=== PATIENT | female | born 1950 | race African-American/Black ===

== ENCOUNTER → 2017-02-26 | Outpatient (CLI) | payer MEDICARE ==
[2015-11-10 20:18] VITALS: BP 139/87
[~2017-02-26] MED LIST: AZIT250T PO
--- NOTE | 2017-02-26 15:59 | CARD ---
APPROVED REPORT EXAM: Two-dimensional and M-mode echocardiogram with Doppler and color Doppler. Other Information Quality : Good INDICATION Murmur 2D DIMENSIONS Left Atrium(2D)3.3 (1.6-4.0cm)IVSd1.2 (0.7-1.1cm) Aortic Root(2D)3.2 (2.0-3.7cm)LVDd4.7 (3.9-5.9cm) LVOT Diameter2.0 (1.8-2.4cm)PWd1.1 (0.7-1.1cm) LVDs3.0 (2.5-4.0cm)FS (%) 36.1 % SV67.6 mlLVEF(%)65.7 (>50%) Aortic Valve AoV Peak Pablo.159.1cm/sAoV VTI32.5cm AO Peak GR.10.1mmHgLVOT Peak Pablo.124.5cm/s AO Mean GR.5mmHgAVA (VMAX)2.34cm2 ANTHONY (VTI)2.50cm2 Mitral Valve MV E Dekaizqn49.1cm/sMV DECEL BECU566tt MV A Bbvtzdqw340.6cm/sE/A Ratio0.9 Tricuspid Valve TR P. Kzznzkrw156ws/sRAP YVFCDLZX6uzAb TR Peak Gr.09lmCdCYZP25bkMe Pulmonary Vein S1 Qouyufcj20.3cm/sD2 Gedzxdlq91.0cm/s LEFT VENTRICLE The left ventricle is normal size. There is mild concentric left ventricular hypertrophy. Left ventri brandi systolic function is normal. The Ejection Fraction is 55-60%. There is normal LV segmental wall m otion. Transmitral Doppler flow pattern is Grade II-pseudonormal filling dynamics. RIGHT VENTRICLE The right ventricle is mildly dilated. The right ventricular systolic function is normal. ATRIA The left atrium size is normal. The right atrium size is normal. The interatrial septum is intact wit h no evidence for an atrial septal defect or patent foramen ovale as noted on 2-D or Doppler imaging. AORTIC VALVE The aortic valve is calcified but opens well. Doppler and Color Flow revealed trace aortic regurgitat ion. There is no significant aortic valvular stenosis. MITRAL VALVE The mitral valve leaflets are thickened and calcified. There is no mitral valve stenosis. Doppler and Color-flow revealed trace to mild mitral regurgitation. TRICUSPID VALVE The tricuspid valve is normal in structure and function. Doppler and Color Flow revealed mild tricusp id regurgitation. There is no pulmonary hypertension. The PA pressure was estimated at 22 mmHg. There is no tricuspid valve stenosis. PULMONIC VALVE Doppler and Color Flow revealed trace pulmonic valvular regurgitation. There is no pulmonic valvular stenosis. GREAT VESSELS The aortic root is normal in size. The ascending aorta is normal in size. The IVC is normal in size a nd collapses >50% with inspiration. PERICARDIAL EFFUSION There is no pleural effusion. There is no evidence of significant pericardial effusion. Critical Notification Critical Value: No <Conclusion> Left ventricle systolic function is normal. The Ejection Fraction is 55-60%. There is normal LV segmental wall motion.
== END | disposition home or self-care (01) ==
LOC: ECHO 07:52
PROVIDERS: ATTEND Internal Medicine Cardiovascular Disease
DX: I51.7 Cardiomegaly (principal); R01.1 Cardiac murmur, unspecified
CPT/HCPCS: 93306

== ENCOUNTER → 2017-03-19 | Outpatient (CLI) | payer MEDICARE ==
[2015-11-10 20:18] VITALS: BP 139/87
--- NOTE | 2017-03-19 10:15 | RAD ---
DATE: 03/19/2017 EXAM: DIGITAL SCREEN BILAT W/CAD Bilateral Digital 2D Screening Mammogram HISTORY: Screening Mammogram COMPARISON: Screening mammogram 11/12/2015, 10/29/2014, 09/18/2013 This study was interpreted with the benefit of Computerized Aided Detection (CAD). The breast parenchyma is primarily fatty replaced. Breast parenchyma level density A. FINDINGS: Bilateral digital 2-D CC and MLO views. No suspicious mass, calcification or architectural distortion. No significant change from prior examination IMPRESSION: No mammographic evidence of malignancy. Recommend routine screening mammogram in 12 months. BI-RADS CATEGORY: 1 NEGATIVE RECOMMENDED FOLLOW-UP: 12M 12 MONTH FOLLOW-UP PQRS compliance statement: Patient information was entered into a reminder system with a target due date March 2018 for the next mammogram. Mammography is a sensitive method for finding small breast cancers, but it does not detect them all and is not a substitute for careful clinical examination. A negative mammogram does not negate a clinically suspicious finding and should not result in delay in biopsying a clinically suspicious abnormality. "Our facility is accredited by the [employer] Mammography [employer]."
== END | disposition home or self-care (01) ==
LOC: MAMMO 08:36
PROVIDERS: ATTEND Family Medicine
DX: Z12.31 Encounter for screening mammogram for malignant neoplasm of breast (principal)
CPT/HCPCS: G0202; 77067

== ENCOUNTER → 2018-03-22 | Outpatient (CLI) | payer MEDICARE, OTHER ==
[2015-11-10 20:18] VITALS: BP 139/87
--- NOTE | 2018-03-22 15:19 | RAD ---
DATE: 03/22/2018 EXAM: DIGITAL SCREEN BILAT W/CAD HISTORY: Annual screening COMPARISON: 10/29/2014, 09/18/2013, 11/12/2015, and 03/19/2017 mammographic exams This study was interpreted with the benefit of Computerized Aided Detection (CAD). Breast Density: FATTY The breast parenchyma is primarily fatty replaced. Breast parenchyma level density A. FINDINGS: Very minimal benign calcification is present. No suspicious calcification cluster, mass, or distortion. IMPRESSION: Benign. BI-RADS CATEGORY: 2 BENIGN FINDING(S) RECOMMENDED FOLLOW-UP: 12M 12 MONTH FOLLOW-UP PQRS compliance statement: Patient information was entered into a reminder system with a target due date in one year for the next mammogram. Mammography is a sensitive method for finding small breast cancers, but it does not detect them all and is not a substitute for careful clinical examination. A negative mammogram does not negate a clinically suspicious finding and should not result in delay in biopsying a clinically suspicious abnormality. "Our facility is accredited by the [employer] Mammography [employer]."
== END | disposition home or self-care (01) ==
LOC: MAMMO 09:06
PROVIDERS: ATTEND Family Medicine
DX: Z12.31 Encounter for screening mammogram for malignant neoplasm of breast (principal)
CPT/HCPCS: 77067

== ENCOUNTER 2018-09-13 12:21 | Inpatient (IN) | payer MEDICARE, OTHER ==
[~2018-09-13] VITALS: Ht 157.5 cm; Wt 93.0 kg
--- NOTE | 2018-09-13 13:56 | PHYS DOC ---
Past Medical History Past Medical History: Heart Disease, Hypertension Additional Past Medical Histor: cataract, legally blind since (JEFF CORNELL APRN) Past Surgical History: Hysterectomy, Other Additional Past Surgical Histo: cataract surgery (JEFF CORNELL APRN) Alcohol Use: None Drug Use: None (JEFF CORNELL APRN) Adult General Chief Complaint Chief Complaint: NAUSEA/VOMITING/DIARRHA HPI HPI Patient is a 67 year old female who presents with nausea and vomiting since last night. She is also having associated symptom of epigastric pain. Has had this pain once before and was seen at for it. Was told it was heartburn. Not take her medication today due to the nausea and vomiting. Tried Tums at home and Imodium with minimal relief. Rates her pain in the epigastric region as 9 out of 10 the character of the pain is throbbing. (JEFF CORNELL APRN) Review of Systems Review of Systems Constitutional: Denies fever or chills [] Eyes: Denies change in visual acuity, redness, or eye pain [] HENT: Denies nasal congestion or sore throat [] Respiratory: Denies cough or shortness of breath [] Cardiovascular: Reports epigastric chest pain and denies syncope. GI: Reports abdominal pain, nausea, and vomiting. Denies bloody stools or diarrhea [] : Denies dysuria or hematuria [] Musculoskeletal: Denies back pain or joint pain [] Integument: Denies rash or skin lesions [] Neurologic: Denies headache, focal weakness or sensory changes [] Endocrine: Denies polyuria or polydipsia [] Complete systems were reviewed and found to be within normal limits, except as documented in this note. (JEFF CORNELL APRN) Current Medications Current Medications Current Medications Medications (Trade) Dose Ordered Sig/Antoine Start Time Stop Time Status Last Admin Dose Admin Multi-Ingredient Mouthwash/Gargle (Gi Cocktail) 20 ml 1X ONCE 09/13/18 14:00 09/13/18 14:01 DC 09/13/18 14:26 20 ML Ondansetron HCl (Zofran) 4 mg 1X ONCE 09/13/18 14:00 09/13/18 14:01 DC 09/13/18 14:24 4 MG Sodium Chloride 500 ml @ 500 mls/hr 1X ONCE 09/13/18 14:00 09/13/18 14:59 DC 09/13/18 14:23 500 MLS/HR (IFTIKHAR GORE MD) Allergies Allergies Allergies Coded Allergies Type Severity Reaction Last Updated Verified No Known Drug Allergies 11/10/15 No (IFTIKHAR GORE MD) Physical Exam Physical Exam Constitutional: Well developed, well nourished, no acute distress, non-toxic appearance. [] HENT: Normocephalic, atraumatic, bilateral external ears normal, oropharynx moist, no oral exudates, nose normal. [] Eyes: PERRLA, EOMI, conjunctiva normal, no discharge. [] Neck: Normal range of motion, no tenderness, supple, no stridor. [] Cardiovascular:Heart rate regular rhythm, no murmur [] Lungs & Thorax: Bilateral breath sounds clear to auscultation [] Abdomen: Bowel sounds hyporeactive, soft, diffuse tenderness in the upper abdominal region localized to the epigstric area., no masses, no pulsatile masses. [] Skin: Warm, dry, no erythema, no rash. [] Back: No tenderness, no CVA tenderness. [] Extremities: No tenderness, no cyanosis, no clubbing, ROM intact, no edema. [] Neurologic: Alert and oriented X 3, normal motor function, normal sensory function, no focal deficits noted. [] Psychologic: Affect flat, judgement normal, mood flat [] (JEFF CORNELL APRN) Current Patient Data Vital Signs Vital Signs Date Time Temp Pulse Resp B/P (MAP) Pulse Ox O2 Delivery O2 Flow Rate FiO2 09/13/18 13:45 97.9 67 18 161/77 (105) 96 Room Air 97.9 (IFTIKHAR GORE MD) Lab Values Laboratory Tests Test 09/13/18 13:35 09/13/18 14:15 Urine Collection Type Unknown Urine Color Shiela Urine Clarity Clear Urine pH 5.0 Urine Specific Cartwright >=1.030 Urine Protein 30 mg/dL (NEG-TRACE) Urine Glucose (UA) Negative mg/dL (NEG) Urine Ketones (Stick) Trace mg/dL (NEG) Urine Blood Negative (NEG) Urine Nitrite Negative (NEG) Urine Bilirubin Small (NEG) Urine Urobilinogen Dipstick 1.0 mg/dL (0.2 mg/dL) Urine Leukocyte Esterase Small (NEG) Urine RBC Occ /HPF (0-2) Urine WBC 11-20 /HPF (0-4) Urine Squamous Epithelial Cells Few /LPF Urine Bacteria Few /HPF (0-FEW) Urine Hyaline Casts Occasional /HPF Urine Mucus Mod /LPF White Blood Count 8.7 x10^3/uL (4.0-11.0) Red Blood Count 5.88 x10^6/uL (3.50-5.40) H Hemoglobin 12.5 g/dL (12.0-15.5) Hematocrit 39.9 % (36.0-47.0) Mean Corpuscular Volume 68 fL (79-100) L Mean Corpuscular Hemoglobin 21 pg (25-35) L Mean Corpuscular Hemoglobin Concent 31 g/dL (31-37) Red Cell Distribution Width 17.4 % (11.5-14.5) H Platelet Count 171 x10^3/uL (140-400) Neutrophils (%) (Auto) 71 % (31-73) Lymphocytes (%) (Auto) 22 % (24-48) L Monocytes (%) (Auto) 7 % (0-9) Eosinophils (%) (Auto) 0 % (0-3) Basophils (%) (Auto) 0 % (0-3) Neutrophils # (Auto) 6.1 x10^3uL (1.8-7.7) Lymphocytes # (Auto) 1.9 x10^3/uL (1.0-4.8) Monocytes # (Auto) 0.6 x10^3/uL (0.0-1.1) Eosinophils # (Auto) 0.0 x10^3/uL (0.0-0.7) Basophils # (Auto) 0.0 x10^3/uL (0.0-0.2) Platelet Estimate Adequate (ADEQUATE) Polychromasia Slight Hypochromasia Mod Anisocytosis Slight Microcytosis Marked Sodium Level 140 mmol/L (136-145) Potassium Level 4.0 mmol/L (3.5-5.1) Chloride Level 101 mmol/L (98-107) Carbon Dioxide Level 26 mmol/L (21-32) Anion Gap 13 (6-14) Blood Urea Nitrogen 15 mg/dL (7-20) Creatinine 0.9 mg/dL (0.6-1.0) Estimated GFR (Cockcroft-Gault) 75.6 BUN/Creatinine Ratio 17 (6-20) Glucose Level 147 mg/dL (70-99) H Calcium Level 10.1 mg/dL (8.5-10.1) Total Bilirubin 1.8 mg/dL (0.2-1.0) H Aspartate Amino Transferase (AST) 740 U/L (15-37) H Alanine Aminotransferase (ALT) 579 U/L (14-59) H Alkaline Phosphatase 133 U/L (46-116) H Troponin I Quantitative < 0.017 ng/mL (0.000-0.055) MF-Cha-R-Type Natriuretic Peptide 263 pg/mL (0-124) H Total Protein 8.1 g/dL (6.4-8.2) Albumin 3.8 g/dL (3.4-5.0) Albumin/Globulin Ratio 0.9 (1.0-1.7) L Lipase 65 U/L (73-393) L Laboratory Tests 09/13/18 14:15 Laboratory Tests 09/13/18 14:15 (IFTIKHAR GORE MD) Lab Values Laboratory Tests Test 09/13/18 13:35 09/13/18 14:15 Urine Collection Type Unknown Urine Color Shiela Urine Clarity Clear Urine pH 5.0 Urine Specific Cartwright >=1.030 Urine Protein 30 mg/dL (NEG-TRACE) Urine Glucose (UA) Negative mg/dL (NEG) Urine Ketones (Stick) Trace mg/dL (NEG) Urine Blood Negative (NEG) Urine Nitrite Negative (NEG) Urine Bilirubin Small (NEG) Urine Urobilinogen Dipstick 1.0 mg/dL (0.2 mg/dL) Urine Leukocyte Esterase Small (NEG) Urine RBC Occ /HPF (0-2) Urine WBC 11-20 /HPF (0-4) Urine Squamous Epithelial Cells Few /LPF Urine Bacteria Few /HPF (0-FEW) Urine Hyaline Casts Occasional /HPF Urine Mucus Mod /LPF White Blood Count 8.7 x10^3/uL (4.0-11.0) Red Blood Count 5.88 x10^6/uL (3.50-5.40) H Hemoglobin 12.5 g/dL (12.0-15.5) Hematocrit 39.9 % (36.0-47.0) Mean Corpuscular Volume 68 fL (79-100) L Mean Corpuscular Hemoglobin 21 pg (25-35) L Mean Corpuscular Hemoglobin Concent 31 g/dL (31-37) Red Cell Distribution Width 17.4 % (11.5-14.5) H Platelet Count 171 x10^3/uL (140-400) Neutrophils (%) (Auto) 71 % (31-73) Lymphocytes (%) (Auto) 22 % (24-48) L Monocytes (%) (Auto) 7 % (0-9) Eosinophils (%) (Auto) 0 % (0-3) Basophils (%) (Auto) 0 % (0-3) Neutrophils # (Auto) 6.1 x10^3uL (1.8-7.7) Lymphocytes # (Auto) 1.9 x10^3/uL (1.0-4.8) Monocytes # (Auto) 0.6 x10^3/uL (0.0-1.1) Eosinophils # (Auto) 0.0 x10^3/uL (0.0-0.7) Basophils # (Auto) 0.0 x10^3/uL (0.0-0.2) Platelet Estimate Adequate (ADEQUATE) Polychromasia Slight Hypochromasia Mod Anisocytosis Slight Microcytosis Marked Sodium Level 140 mmol/L (136-145) Potassium Level 4.0 mmol/L (3.5-5.1) Chloride Level 101 mmol/L (98-107) Carbon Dioxide Level 26 mmol/L (21-32) Anion Gap 13 (6-14) Blood Urea Nitrogen 15 mg/dL (7-20) Creatinine 0.9 mg/dL (0.6-1.0) Estimated GFR (Cockcroft-Gault) 75.6 BUN/Creatinine Ratio 17 (6-20) Glucose Level 147 mg/dL (70-99) H Calcium Level 10.1 mg/dL (8.5-10.1) Total Bilirubin 1.8 mg/dL (0.2-1.0) H Aspartate Amino Transferase (AST) 740 U/L (15-37) H Alanine Aminotransferase (ALT) 579 U/L (14-59) H Alkaline Phosphatase 133 U/L (46-116) H Troponin I Quantitative < 0.017 ng/mL (0.000-0.055) GC-Gwt-Z-Type Natriuretic Peptide 263 pg/mL (0-124) H Total Protein 8.1 g/dL (6.4-8.2) Albumin 3.8 g/dL (3.4-5.0) Albumin/Globulin Ratio 0.9 (1.0-1.7) L Lipase 65 U/L (73-393) L Laboratory Tests 09/13/18 14:15 Laboratory Tests 09/13/18 14:15 (JEFF CORNELL APRN) EKG EKG Interpreted by Dr. Aminata MD No STEMI. Sinus rhythm rate of 61.[] (JEFF CORNELL APRN) Radiology/Procedures Radiology/Procedures [] PATIENT: ZOË EARLY ACCOUNT: [id number] : 1950 LOCATION: ER AGE: 67 SEX: F EXAM STATUS: REG ER ORD. PHYSICIAN: JEFF CORNELL APRN REASON: CP,pt states having pain that feels like indigestion. PROCEDURE: CHEST PA & LATERAL Two-view chest dated 09/13/2018. Comparison made to October 11, 2015. CLINICAL INDICATION: Chest pain. FINDINGS: PA and lateral views chest were obtained. Heart and mediastinal contours are stable. Mild tortuosity of the thoracic aorta, unchanged. There is a prominent lymph node at the right hilum, similar to prior study. There is some patchy and linear perihilar opacities, similar to prior study. No consolidation or pleural effusion. No pneumothorax. IMPRESSION: 1. Prominent perihilar linear markings, similar to prior study. Consider acute or chronic bronchial inflammatory process. 2. Prominent right hilar lymph node, nonspecific but unchanged. Electronically signed by: Jeff Garcia MD (09/13/2018 2:21 PM) PATIENT: ZOË EARLY ACCOUNT: [id number] : 1950 LOCATION: ER AGE: 67 SEX: F EXAM STATUS: REG ER ORD. PHYSICIAN: JEFF CORNELL APRN REASON: RUQ PAIN, N/V PROCEDURE: ABDOMEN COMPLETE Abdominal ultrasound dated 09/13/2018. No comparison available. CLINICAL INDICATION: Nausea vomiting and abdominal pain. FINDINGS: Liver is of diffuse increased echogenicity, compatible with fatty infiltration. No apparent mass. Intrahepatic biliary tree is normal in caliber. The common bile duct is dilated measuring up to 12 mm diameter. Echogenic shadowing foci within the gallbladder lumen consistent with sludge and/or small stones. No significant wall thickening. No pericholecystic fluid. Right kidney measures 10.3 cm in length. Left kidney measures 10.2 cm in length. No hydronephrosis. Spleen is poorly visualized but measures 9.2 cm longitudinal dimension. Pancreas aorta and IVC not well visualized due to overlying bowel gas and body habitus. No significant ascites. IMPRESSION: 1. Cholelithiasis with no secondary signs of acute cholecystitis. 2. Dilated common bile duct with no apparent filling defect or intrahepatic ductal dilatation. This is of uncertain significance however a distal stricture or choledocho with cannot be excluded. Correlate with laboratory values. If indicated, CT or MRCP could provide additional information. Electronically signed by: Jeff Garcia MD (09/13/2018 3:04 PM) [facility] PATIENT: ZOË EARLY ACCOUNT: [id number] : 1950 LOCATION: ER AGE: 67 SEX: F EXAM STATUS: REG ER ORD. PHYSICIAN: JEFF CORNELL APRN REASON: r/o bowel obstruction PROCEDURE: ABDOMEN SUPINE & UPRIGHT Examination: ABDOMEN SUPINE UPRIGHT History: Abdominal pain Comparison/Correlation: None Findings: Supine and upright views of the abdomen were obtained. Interstitial thickening of lung bases is present diffusely. Fluid levels are present within nondistended bowel. No extraluminal gas. No suspicious abdominal calcifications. Fluid levels in nondistended bowel may represent gastroenteritis. Impression: No obstruction. Electronically signed by: Reji Virgen MD (09/13/2018 3:17 PM) [facility] (JEFF CORNELL APRN) Course & Med Decision Making Course & Med Decision Making Pertinent Labs and Imaging studies reviewed. (See chart for details) Will get EKG, Chest x-ray, labs, and give supportive care. Will also get a CT of the abdomen pending labs. Patient is agreeable. Liver enzymes appears to be elevated. Talked to Dr. Lowe (General Surgery) who suggest admission. No other suggestions. Will call hospitalist. (JEFF CORNELL APRN) Course & Med Decision Making Patient was seen by ZAHRA, I did not evaluate the patient unless otherwise specified in the chart. (IFTIKHAR GORE MD) Dragon Disclaimer Dragon Disclaimer This electronic medical record was generated, in whole or in part, using a voice recognition dictation system. (JEFF CORNELL APRN) Departure Departure Impression: Primary Impression: Cholelithiasis Additional Impressions: Abnormal liver enzymes Nausea & vomiting Disposition: ADMITTED INPATIENT Condition: STABLE Referrals: JESSICA CHAMBERLAIN (PCP) Problem Qualifiers Primary Impression: Cholelithiasis Cholelithiasis location: gallbladder and bile duct Biliary obstruction: without biliary obstruction Additional Impressions: Nausea & vomiting Vomiting type: unspecified Vomiting Intractability: unspecified Qualified Codes: R11.2 - Nausea with vomiting, unspecified JEFF CORNELL APRN September 13, 2018 13:56 IFTIKHAR GORE MD September 13, 2018 17:46
[2018-09-13 13:57] LABS: BILIRUBIN,URINE SMALL (NEG); CLARITY,URINE CLEAR; NITRITE,URINE NEGATIVE (NEG); PROTEIN,URINE 30 mg/dL (NEG-TRACE)
[2018-09-13] MEDS ORDERED: ONDANSETRON PF 4 MG/2 ML VIAL. IV ONE (14:00)
[2018-09-13] MEDS ORDERED: LIDO:MAALOX 1:1 20 ML SINGLE DOSE. SWSW ONE (14:00)
[2018-09-13] MEDS ORDERED: IV NORMAL SALINE 500ML BAG 500 ML IV ONE (14:00)
--- NOTE | 2018-09-13 14:05 | EKG ---
[facility] [address] [place] [address] Test Date: 2018-09-13 Test Time: 13:50:31 Pat Name: ZOË EARLY Department: Room: Gender: F [employer]: : 1950 Requested By: CLAUDE CORNELL Order Number: [id number] Reading MD: Pastor Sheehan Measurements Intervals [place] Rate: 61 P: 47 PA: 134 QRS: -20 QRSD: 80 T: 14 QT: 398 QTc: 406 Interpretive Statements SINUS RHYTHM LEFTWARD AXIS Electronically Signed On 10-07-2018 11:48:22 CDT by Pastor Sheehan
[2018-09-13 14:09] LABS: BACTERIA,URINE FEW /HPF (0-FEW); COLOR,URINE AMBER; RBC,URINE OCC /HPF (0-2)
[2018-09-13 14:10] LABS: HYALINE CASTS, URINE OCCASIONAL /HPF; SQUAMOUS EPITHELIAL CELL,UR FEW /LPF
--- NOTE | 2018-09-13 14:24 | RAD ---
Two-view chest dated 09/13/2018. Comparison made to October 11, 2015. CLINICAL INDICATION: Chest pain. FINDINGS: PA and lateral views chest were obtained. Heart and mediastinal contours are stable. Mild tortuosity of the thoracic aorta, unchanged. There is a prominent lymph node at the right hilum, similar to prior study. There is some patchy and linear perihilar opacities, similar to prior study. No consolidation or pleural effusion. No pneumothorax. IMPRESSION: 1. Prominent perihilar linear markings, similar to prior study. Consider acute or chronic bronchial inflammatory process. 2. Prominent right hilar lymph node, nonspecific but unchanged. Electronically signed by: Jeff Garcia MD (09/13/2018 2:21 PM) [facility]
[2018-09-13 14:34] LABS: BASO % 0 % (0-3); EOS % 0 % (0-3); HEMATOCRIT 39.9 % (36.0-47.0); HEMOGLOBIN 12.5 g/dL (12.0-15.5); LYMPH # 1.9 x10^3/uL (1.0-4.8); LYMPH % 22 % (24-48); MEAN CORPUSCULAR HEMOGLOBIN 21 pg (25-35); MEAN CORPUSCULAR HGB CONC 31 g/dL (31-37); MEAN CORPUSCULAR VOLUME 68 fL (79-100); MONO # 0.6 x10^3/uL (0.0-1.1); MONO % 7 % (0-9); NEUT # 6.1 x10^3uL (1.8-7.7); NEUT % 71 % (31-73); PLATELET COUNT 171 x10^3/uL (140-400); RED BLOOD COUNT 5.88 x10^6/uL (3.50-5.40); RED CELL DISTRIBUTION WIDTH 17.4 % (11.5-14.5); WHITE BLOOD COUNT 8.7 x10^3/uL (4.0-11.0)
[2018-09-13 14:52] LABS: CALCIUM 10.1 mg/dL (8.5-10.1); CREATININE 0.9 mg/dL (0.6-1.0); GFR 75.6
[2018-09-13 14:57] LABS: ALBUMIN 3.8 g/dL (3.4-5.0); ALBUMIN/GLOBULIN RATIO 0.9 (1.0-1.7); TOTAL BILIRUBIN 1.8 mg/dL (0.2-1.0); TOTAL PROTEIN 8.1 g/dL (6.4-8.2)
[2018-09-13 14:58] LABS: ANISOCYTOSIS SLIGHT; HYPOCHROMIA MOD; PLT ESTIMATE ADEQUATE (ADEQUATE); POLYCHROMASIA SLIGHT
[2018-09-13 14:59] LABS: MICROCYTOSIS MARKED
--- NOTE | 2018-09-13 15:07 | RAD ---
Abdominal ultrasound dated 09/13/2018. No comparison available. CLINICAL INDICATION: Nausea vomiting and abdominal pain. FINDINGS: Liver is of diffuse increased echogenicity, compatible with fatty infiltration. No apparent mass. Intrahepatic biliary tree is normal in caliber. The common bile duct is dilated measuring up to 12 mm diameter. Echogenic shadowing foci within the gallbladder lumen consistent with sludge and/or small stones. No significant wall thickening. No pericholecystic fluid. Right kidney measures 10.3 cm in length. Left kidney measures 10.2 cm in length. No hydronephrosis. Spleen is poorly visualized but measures 9.2 cm longitudinal dimension. Pancreas aorta and IVC not well visualized due to overlying bowel gas and body habitus. No significant ascites. IMPRESSION: 1. Cholelithiasis with no secondary signs of acute cholecystitis. 2. Dilated common bile duct with no apparent filling defect or intrahepatic ductal dilatation. This is of uncertain significance however a distal stricture or choledocho with cannot be excluded. Correlate with laboratory values. If indicated, CT or MRCP could provide additional information. Electronically signed by: Jeff Garcia MD (09/13/2018 3:04 PM) [facility]
--- NOTE | 2018-09-13 15:20 | RAD ---
Examination: ABDOMEN SUPINE UPRIGHT History: Abdominal pain Comparison/Correlation: None Findings: Supine and upright views of the abdomen were obtained. Interstitial thickening of lung bases is present diffusely. Fluid levels are present within nondistended bowel. No extraluminal gas. No suspicious abdominal calcifications. Fluid levels in nondistended bowel may represent gastroenteritis. Impression: No obstruction. Electronically signed by: Reji Virgen MD (09/13/2018 3:17 PM) [facility]
[2018-09-13] MEDS ORDERED: MORPHINE SULFATE 2 MG/ML VIAL. IV PRN (16:15)
[2018-09-13] MEDS ORDERED: ONDANSETRON PF 4 MG/2 ML VIAL. IV PRN (16:15)
[2018-09-13 19:00] VITALS: BP 116/61
[2018-09-13] MEDS ORDERED: PANTOPRAZOLE 40 MG TABLET.DR. PO ONE (19:30)
--- NOTE | 2018-09-13 19:30 | PDOC1 ---
History and Physical Date of Admission Date of Admission DATE: 09/13/18 TIME: 19:23 Identification/Chief Complaint Chief Complaint acute abd pain, nausea and vomiting Source Source: Chart review History of Present Illness History of Present Illness Ms. Zacarias, is a 67 year old female who presents with nausea and vomiting since last night. acute abd pain, better since the ER, pain better, still nauseated. she asked me to discuss most items with her son, in the room prior eval for same at [facility], Dx with GERD only, missed PPI due to condition today Tried Tums at home and Imodium with minimal relief. Rated her pain as 9 out of 10 but now improved pain was mid upper abdomen Past Medical History Cardiovascular: No pertinent hx Pulmonary: No pertinent hx GI: No pertinent hx Heme/Onc: No pertinent hx Hepatobiliary: No pertinent hx Past Surgical History Past Surgical History: No pertinent history Family History Family History: Other Social History Smoke: No ALCOHOL: none Drugs: None Current Problem List Problem List Problems Medical Problems: (1) Abnormal liver enzymes Status: Acute (2) Cholelithiasis Status: Acute (3) Nausea & vomiting Status: Acute Current Medications Current Medications Current Medications Ondansetron HCl (Zofran) 4 mg 1X ONCE IV Last administered on 09/13/18at 14:24; Start 09/13/18 at 14:00; Stop 09/13/18 at 14:01; Status DC Sodium Chloride 500 ml @ 500 mls/hr 1X ONCE IV Last administered on 09/13/18at 14:23; Start 09/13/18 at 14:00; Stop 09/13/18 at 14:59; Status DC Multi-Ingredient Mouthwash/Gargle (Gi Cocktail) 20 ml 1X ONCE SWSW Last administered on 09/13/18at 14:26; Start 09/13/18 at 14:00; Stop 09/13/18 at 14:01; Status DC Ondansetron HCl (Zofran) 4 mg PRN Q8HRS PRN IV NAUSEA/VOMITING; Start 09/13/18 at 16:15; Stop 09/14/18 at 16:14 Morphine Sulfate (Morphine Sulfate) 2 mg PRN Q2HR PRN IV PAIN; Start 09/13/18 at 16:15; Stop 09/14/18 at 16:14 Active Scripts Active Zithromax (Azithromycin) 250 Mg Tablet 1 Pkg PO UD Allergies Allergies: Coded Allergies: No Known Drug Allergies (Unverified , 11/10/15) ROS General: YES: Chills, Fatigue; No: Night Sweats, Malaise, Appetite, Other PSYCHOLOGICAL ROS: No: Anxiety, Behavioral Disorder, Concentration difficultie, Decreased libido, Depression, Disorientation, Hallucinations, Hostility, Irritablity, Memory difficulties, Mood Swings, Obsessive thoughts, Physical abuse, Sexual abuse, Sleep disturbances, Suicidal ideation, Other Eyes: No Blurry vision, No Decreased vision, No Double vision, No Dry eyes, No Excessive tearing, No Eye Pain, No Itchy Eyes, No Loss of vision, No Photo phobia, No Scotomata, No Uses contacts, No Uses glasses, No Other HEENT: No: Heacaches, Visual Changes, Hearing change, Nasal congestion, Nasal discharge, Oral lesions, Sinus pain, Sore Throat, Epistaxis, Sneezing, Snoring, Tinnitus, Vertigo, Vocal changes, Other Respiratory: No: Cough, Hemoptysis, Orthopnea, Pleuritic Pain, Shortness of breath, SOB with excertion, Sputum Changes, Stridor, Tachypnea, Wheezing, Other Cardiovascular: No Chest Pain, No Palpitations, No Orthopnea, No Paroxysmal Noc. Dyspnea, No Edema, No Lt Headedness, No Other Gastrointestinal: Yes Nausea, Yes Vomiting, Yes Abdominal Pain Genitourinary: No Dysuria, No Frequency, No Incontinence, No Hematuria, No Retention, No Discharge, No Urgency, No Pain, No Flank Pain, No Other, No , No , No , No , No , No , No Musculoskeletal: No Gait Disturbance, No Joint Pain, No Joint Stiffness, No Joint Swelling, No Muscle Pain, No Muscular Weakness, No Pain In:, No Swelling In:, No Other Neurological: No Behavorial Changes, No Bowel/Bladder ControlChng, No Confusion, No Dizziness, No Gait Disturbance, No Headaches, No Impaired Coord/balance, No Memory Loss, No Numbness/Tingling, No Seizures, No Speech Problems, No Tremors, No Visual Changes, No Weakness, No Other Skin: Yes Dry Skin; No Eczema, No Hair Changes, No Lumps, No Mole Changes, No Mottling, No Nail Changes, No Pruritus, No Rash, No Skin Lesion Changes, No Other, No Acne Physical Exam General: Alert, Cooperative, No acute distress HEENT: PERRLA, EOMI, Mucous membr. moist/pink Lungs: Clear to auscultation, Normal air movement Heart: S1S2, RRR Rectal Exam: not examined Extremities: No edema, Normal pulses Neuro: Normal speech, Normal tone, Sensation intact Psych/Mental Status: Mood NL Vitals Vitals Vital Signs Date Time Temp Pulse Resp B/P (MAP) Pulse Ox O2 Delivery O2 Flow Rate FiO2 09/13/18 17:41 84 18 132/79 (96) 94 Room Air 09/13/18 13:45 97.9 97.9 Labs Labs Laboratory Tests Test 09/13/18 13:35 09/13/18 14:15 Urine Collection Type Unknown Urine Color Shiela Urine Clarity Clear Urine pH 5.0 Urine Specific Tilly >=1.030 Urine Protein 30 mg/dL (NEG-TRACE) Urine Glucose (UA) Negative mg/dL (NEG) Urine Ketones (Stick) Trace mg/dL (NEG) Urine Blood Negative (NEG) Urine Nitrite Negative (NEG) Urine Bilirubin Small (NEG) Urine Urobilinogen Dipstick 1.0 mg/dL (0.2 mg/dL) Urine Leukocyte Esterase Small (NEG) Urine RBC Occ /HPF (0-2) Urine WBC 11-20 /HPF (0-4) Urine Squamous Epithelial Cells Few /LPF Urine Bacteria Few /HPF (0-FEW) Urine Hyaline Casts Occasional /HPF Urine Mucus Mod /LPF White Blood Count 8.7 x10^3/uL (4.0-11.0) Red Blood Count 5.88 x10^6/uL (3.50-5.40) Hemoglobin 12.5 g/dL (12.0-15.5) Hematocrit 39.9 % (36.0-47.0) Mean Corpuscular Volume 68 fL (79-100) Mean Corpuscular Hemoglobin 21 pg (25-35) Mean Corpuscular Hemoglobin Concent 31 g/dL (31-37) Red Cell Distribution Width 17.4 % (11.5-14.5) Platelet Count 171 x10^3/uL (140-400) Neutrophils (%) (Auto) 71 % (31-73) Lymphocytes (%) (Auto) 22 % (24-48) Monocytes (%) (Auto) 7 % (0-9) Eosinophils (%) (Auto) 0 % (0-3) Basophils (%) (Auto) 0 % (0-3) Neutrophils # (Auto) 6.1 x10^3uL (1.8-7.7) Lymphocytes # (Auto) 1.9 x10^3/uL (1.0-4.8) Monocytes # (Auto) 0.6 x10^3/uL (0.0-1.1) Eosinophils # (Auto) 0.0 x10^3/uL (0.0-0.7) Basophils # (Auto) 0.0 x10^3/uL (0.0-0.2) Platelet Estimate Adequate (ADEQUATE) Polychromasia Slight Hypochromasia Mod Anisocytosis Slight Microcytosis Marked Sodium Level 140 mmol/L (136-145) Potassium Level 4.0 mmol/L (3.5-5.1) Chloride Level 101 mmol/L (98-107) Carbon Dioxide Level 26 mmol/L (21-32) Anion Gap 13 (6-14) Blood Urea Nitrogen 15 mg/dL (7-20) Creatinine 0.9 mg/dL (0.6-1.0) Estimated GFR (Cockcroft-Gault) 75.6 BUN/Creatinine Ratio 17 (6-20) Glucose Level 147 mg/dL (70-99) Calcium Level 10.1 mg/dL (8.5-10.1) Total Bilirubin 1.8 mg/dL (0.2-1.0) Aspartate Amino Transf (AST/SGOT) 740 U/L (15-37) Alanine Aminotransferase (ALT/SGPT) 579 U/L (14-59) Alkaline Phosphatase 133 U/L (46-116) Troponin I Quantitative < 0.017 ng/mL (0.000-0.055) NS-[id number]-Type Natriuretic Peptide 263 pg/mL (0-124) Total Protein 8.1 g/dL (6.4-8.2) Albumin 3.8 g/dL (3.4-5.0) Albumin/Globulin Ratio 0.9 (1.0-1.7) Lipase 65 U/L (73-393) Laboratory Tests Test 09/13/18 13:35 09/13/18 14:15 Urine Collection Type Unknown Urine Color Shiela Urine Clarity Clear Urine pH 5.0 Urine Specific Tilly >=1.030 Urine Protein 30 mg/dL (NEG-TRACE) Urine Glucose (UA) Negative mg/dL (NEG) Urine Ketones (Stick) Trace mg/dL (NEG) Urine Blood Negative (NEG) Urine Nitrite Negative (NEG) Urine Bilirubin Small (NEG) Urine Urobilinogen Dipstick 1.0 mg/dL (0.2 mg/dL) Urine Leukocyte Esterase Small (NEG) Urine RBC Occ /HPF (0-2) Urine WBC 11-20 /HPF (0-4) Urine Squamous Epithelial Cells Few /LPF Urine Bacteria Few /HPF (0-FEW) Urine Hyaline Casts Occasional /HPF Urine Mucus Mod /LPF White Blood Count 8.7 x10^3/uL (4.0-11.0) Red Blood Count 5.88 x10^6/uL (3.50-5.40) Hemoglobin 12.5 g/dL (12.0-15.5) Hematocrit 39.9 % (36.0-47.0) Mean Corpuscular Volume 68 fL (79-100) Mean Corpuscular Hemoglobin 21 pg (25-35) Mean Corpuscular Hemoglobin Concent 31 g/dL (31-37) Red Cell Distribution Width 17.4 % (11.5-14.5) Platelet Count 171 x10^3/uL (140-400) Neutrophils (%) (Auto) 71 % (31-73) Lymphocytes (%) (Auto) 22 % (24-48) Monocytes (%) (Auto) 7 % (0-9) Eosinophils (%) (Auto) 0 % (0-3) Basophils (%) (Auto) 0 % (0-3) Neutrophils # (Auto) 6.1 x10^3uL (1.8-7.7) Lymphocytes # (Auto) 1.9 x10^3/uL (1.0-4.8) Monocytes # (Auto) 0.6 x10^3/uL (0.0-1.1) Eosinophils # (Auto) 0.0 x10^3/uL (0.0-0.7) Basophils # (Auto) 0.0 x10^3/uL (0.0-0.2) Platelet Estimate Adequate (ADEQUATE) Polychromasia Slight Hypochromasia Mod Anisocytosis Slight Microcytosis Marked Sodium Level 140 mmol/L (136-145) Potassium Level 4.0 mmol/L (3.5-5.1) Chloride Level 101 mmol/L (98-107) Carbon Dioxide Level 26 mmol/L (21-32) Anion Gap 13 (6-14) Blood Urea Nitrogen 15 mg/dL (7-20) Creatinine 0.9 mg/dL (0.6-1.0) Estimated GFR (Cockcroft-Gault) 75.6 BUN/Creatinine Ratio 17 (6-20) Glucose Level 147 mg/dL (70-99) Calcium Level 10.1 mg/dL (8.5-10.1) Total Bilirubin 1.8 mg/dL (0.2-1.0) Aspartate Amino Transf (AST/SGOT) 740 U/L (15-37) Alanine Aminotransferase (ALT/SGPT) 579 U/L (14-59) Alkaline Phosphatase 133 U/L (46-116) Troponin I Quantitative < 0.017 ng/mL (0.000-0.055) JE-Ysc-[id number]-Type Natriuretic Peptide 263 pg/mL (0-124) Total Protein 8.1 g/dL (6.4-8.2) Albumin 3.8 g/dL (3.4-5.0) Albumin/Globulin Ratio 0.9 (1.0-1.7) Lipase 65 U/L (73-393) VTE Prophylaxis Ordered VTE Prophylaxis Devices: Yes VTE Pharmacological Prophylaxi: No Assessment/Plan Assessment/Plan acute abd pain with nausea and vomiting transaminitis, CBD dialtion without acute crista seen, will MRCP check hepatitis panel consult GI obesity, BMI 38 GERD, ppi KENNEDY VILLAGOMEZ MD September 13, 2018 19:30
[2018-09-13] MEDS ORDERED: ATOR10TA60 PO (20:54)
[2018-09-13] MEDS ORDERED: HYDR-2145 PO (20:54)
[2018-09-13] MEDS ORDERED: METO-239 PO (20:54)
[2018-09-13] MEDS ORDERED: SERT50TA PO (20:54)
[2018-09-13] MEDS ORDERED: ACET500T68 PO (20:54)
[2018-09-13] MEDS ORDERED: ASPI81TA50 PO (20:54)
[2018-09-13 23:41] VITALS: BP 122/74
[2018-09-14 03:08] VITALS: BP 120/60
[2018-09-14 05:27] LABS: BASO % 0 % (0-3); EOS % 0 % (0-3); HEMATOCRIT 34.1 % (36.0-47.0); HEMOGLOBIN 11.1 g/dL (12.0-15.5); LYMPH % 32 % (24-48); MEAN CORPUSCULAR HEMOGLOBIN 22 pg (25-35); MEAN CORPUSCULAR HGB CONC 33 g/dL (31-37); MEAN CORPUSCULAR VOLUME 67 fL (79-100); MONO # 0.6 x10^3/uL (0.0-1.1); MONO % 10 % (0-9); NEUT # 3.8 x10^3uL (1.8-7.7); NEUT % 59 % (31-73); PLATELET COUNT 143 x10^3/uL (140-400); RED BLOOD COUNT 5.08 x10^6/uL (3.50-5.40); RED CELL DISTRIBUTION WIDTH 17.7 % (11.5-14.5); WHITE BLOOD COUNT 6.5 x10^3/uL (4.0-11.0)
[2018-09-14 05:46] LABS: ALBUMIN/GLOBULIN RATIO 0.9 (1.0-1.7); CALCIUM 9.1 mg/dL (8.5-10.1); CREATININE 0.9 mg/dL (0.6-1.0); GFR 75.6; POTASSIUM 3.5 mmol/L (3.5-5.1); TOTAL BILIRUBIN 2.6 mg/dL (0.2-1.0); TOTAL PROTEIN 6.4 g/dL (6.4-8.2)
[2018-09-14 07:00] VITALS: BP 123/76
--- NOTE | 2018-09-14 07:20 | NUR ---
Radiology called stated unable to do MRCP because pt took Protonix with sip water. Stated that it had to be reschedule for tomorrow.
[2018-09-14] MEDS: PANTOPRAZOLE 40 MG TABLET.DR. PO SCH (07:32)
--- NOTE | 2018-09-14 09:20 | PDOC2 ---
GI CONSULT Reason For Consult: Elevated LFTs, cholelithiasis HPI: HPI: 67 y/o female who is not a good historian. For most of the interview, she was on and off the phone, asking me to adjust her bed, and asking me what was on her breakfast tray. She is legally blind and lives with her sister. She reports vomiting x 3 days with some "severe" midchest and epigastric pain (though this has resolved). She denies precipitating events but had similar symptoms in 06/2018 and was hospitalized @ . H&P indicates she was diagnosed with GERD, she tells me she doesn't remember that but thinks she had a UTI and "they ran me through the ringer." At some point had an EGD - unclear whether this was recent or what was found - "I don't remember." Takes Tums sometimes at home "and another pill I don't remember." Labs noted elevated LFTs - bili 1.8 (now 2.6), AST 740 (now 780), ALT 574 (now 916), AP 133 (now 140). Additionally, Hgb is 11.1 w/ MCV 67. Imaging noted fatty liver, dilated CBD (12mm), and sludge/cholelithiasis. No previous colonoscopy. Does not recall GB, liver, or pancreas history. Takes ASA, Tylenol, and ibuprofen at home - "I don't know, I just take them." She denies reflux/heartburn, dysphagia, diarrhea, constipation, and weight loss. Is not aware of any bleeding. PMH: PMH: CAD w/ stent, HTN, ?GERD, UTI, depression/anxiety, legally blind, hysterectomy, cataract removal FH: Family History: Other ("I don't know") Social History: Smoke: No ALCOHOL: none Drugs: None ROS: Per HPI, difficult to obtain. Vitals: Vitals: Vital Signs Date Time Temp Pulse Resp B/P (MAP) Pulse Ox O2 Delivery O2 Flow Rate FiO2 09/14/18 07:00 98.2 90 20 123/76 (92) 90 Room Air 98.2 Labs: Labs: Laboratory Tests Test 09/13/18 13:35 09/13/18 14:15 09/14/18 05:00 Urine Collection Type Unknown Urine Color Shiela Urine Clarity Clear Urine pH 5.0 Urine Specific Magee >=1.030 Urine Protein 30 mg/dL (NEG-TRACE) Urine Glucose (UA) Negative mg/dL (NEG) Urine Ketones (Stick) Trace mg/dL (NEG) Urine Blood Negative (NEG) Urine Nitrite Negative (NEG) Urine Bilirubin Small (NEG) Urine Urobilinogen Dipstick 1.0 mg/dL (0.2 mg/dL) Urine Leukocyte Esterase Small (NEG) Urine RBC Occ /HPF (0-2) Urine WBC 11-20 /HPF (0-4) Urine Squamous Epithelial Cells Few /LPF Urine Bacteria Few /HPF (0-FEW) Urine Hyaline Casts Occasional /HPF Urine Mucus Mod /LPF White Blood Count 8.7 x10^3/uL (4.0-11.0) 6.5 x10^3/uL (4.0-11.0) Red Blood Count 5.88 x10^6/uL (3.50-5.40) 5.08 x10^6/uL (3.50-5.40) Hemoglobin 12.5 g/dL (12.0-15.5) 11.1 g/dL (12.0-15.5) Hematocrit 39.9 % (36.0-47.0) 34.1 % (36.0-47.0) Mean Corpuscular Volume 68 fL (79-100) 67 fL (79-100) Mean Corpuscular Hemoglobin 21 pg (25-35) 22 pg (25-35) Mean Corpuscular Hemoglobin Concent 31 g/dL (31-37) 33 g/dL (31-37) Red Cell Distribution Width 17.4 % (11.5-14.5) 17.7 % (11.5-14.5) Platelet Count 171 x10^3/uL (140-400) 143 x10^3/uL (140-400) Neutrophils (%) (Auto) 71 % (31-73) 59 % (31-73) Lymphocytes (%) (Auto) 22 % (24-48) 32 % (24-48) Monocytes (%) (Auto) 7 % (0-9) 10 % (0-9) Eosinophils (%) (Auto) 0 % (0-3) 0 % (0-3) Basophils (%) (Auto) 0 % (0-3) 0 % (0-3) Neutrophils # (Auto) 6.1 x10^3uL (1.8-7.7) 3.8 x10^3uL (1.8-7.7) Lymphocytes # (Auto) 1.9 x10^3/uL (1.0-4.8) 2.0 x10^3/uL (1.0-4.8) Monocytes # (Auto) 0.6 x10^3/uL (0.0-1.1) 0.6 x10^3/uL (0.0-1.1) Eosinophils # (Auto) 0.0 x10^3/uL (0.0-0.7) 0.0 x10^3/uL (0.0-0.7) Basophils # (Auto) 0.0 x10^3/uL (0.0-0.2) 0.0 x10^3/uL (0.0-0.2) Platelet Estimate Adequate (ADEQUATE) Polychromasia Slight Hypochromasia Mod Anisocytosis Slight Microcytosis Marked Sodium Level 140 mmol/L (136-145) 142 mmol/L (136-145) Potassium Level 4.0 mmol/L (3.5-5.1) 3.5 mmol/L (3.5-5.1) Chloride Level 101 mmol/L (98-107) 105 mmol/L (98-107) Carbon Dioxide Level 26 mmol/L (21-32) 25 mmol/L (21-32) Anion Gap 13 (6-14) 12 (6-14) Blood Urea Nitrogen 15 mg/dL (7-20) 13 mg/dL (7-20) Creatinine 0.9 mg/dL (0.6-1.0) 0.9 mg/dL (0.6-1.0) Estimated GFR (Cockcroft-Gault) 75.6 75.6 BUN/Creatinine Ratio 17 (6-20) 14 (6-20) Glucose Level 147 mg/dL (70-99) 153 mg/dL (70-99) Calcium Level 10.1 mg/dL (8.5-10.1) 9.1 mg/dL (8.5-10.1) Total Bilirubin 1.8 mg/dL (0.2-1.0) 2.6 mg/dL (0.2-1.0) Aspartate Amino Transf (AST/SGOT) 740 U/L (15-37) 780 U/L (15-37) Alanine Aminotransferase (ALT/SGPT) 579 U/L (14-59) 916 U/L (14-59) Alkaline Phosphatase 133 U/L (46-116) 140 U/L (46-116) Troponin I Quantitative < 0.017 ng/mL (0.000-0.055) JU-Vab-S-Type Natriuretic Peptide 263 pg/mL (0-124) Total Protein 8.1 g/dL (6.4-8.2) 6.4 g/dL (6.4-8.2) Albumin 3.8 g/dL (3.4-5.0) 3.0 g/dL (3.4-5.0) Albumin/Globulin Ratio 0.9 (1.0-1.7) 0.9 (1.0-1.7) Lipase 65 U/L (73-393) Allergies: Coded Allergies: No Known Drug Allergies (Unverified , 11/10/15) Medications: Current Medications Medications (Trade) Dose Ordered Sig/Antoine Route PRN Reason Start Time Stop Time Status Last Admin Dose Admin Ondansetron HCl (Zofran) 4 mg 1X ONCE IV 09/13/18 14:00 09/13/18 14:01 DC 09/13/18 14:24 Sodium Chloride 500 ml @ 500 mls/hr 1X ONCE IV 09/13/18 14:00 09/13/18 14:59 DC 09/13/18 14:23 Multi-Ingredient Mouthwash/Gargle (Gi Cocktail) 20 ml 1X ONCE SWSW 09/13/18 14:00 09/13/18 14:01 DC 09/13/18 14:26 Pantoprazole Sodium (Protonix) 40 mg DAILYAC PO 09/14/18 07:30 09/14/18 07:32 Pantoprazole Sodium (Protonix) 40 mg 1X ONCE PO 09/13/18 19:30 09/13/18 19:35 DC 09/13/18 21:07 Imaging: Imaging: CXR IMPRESSION: 1. Prominent perihilar linear markings, similar to prior study. Consider acute or chronic bronchial inflammatory process. 2. Prominent right hilar lymph node, nonspecific but unchanged. Abd US IMPRESSION: 1. Cholelithiasis with no secondary signs of acute cholecystitis. 2. Dilated common bile duct with no apparent filling defect or intrahepatic ductal dilatation. This is of uncertain significance however a distal stricture or choledocho with cannot be excluded. Correlate with laboratory values. If indicated, CT or MRCP could provide additional information. Abd X-Ray Impression: No obstruction. PE: GEN: NAD HEENT: Atraumatic, PERRL LUNGS: CTAB HEART: RRR ABD: BS quiet, S/ND/NT EXTREMITY: No edema SKIN: No rashes, no jaundice NEURO/PSYCH: A & O 3 A/P: A/P: Vomiting, chest/abd pain Elevated LFTs, cholelithiasis/sludge, dilated CBD Microcytic anemia ?GERD - ?previous EGD CRC screen - none CAD on ASA -- D/w RN - MRCP was ordered but cancelled per MRI because the patient had a sip of water and a pill. Since I have seen, looks like orders in for cholecystectomy w/ cholangiogram and liver biopsy. Also note orders for Hepatitis panel. Agree w/ PPI - can change to IV if needed. Check iron profile. SILKE COWART September 14, 2018 09:19
--- NOTE | 2018-09-14 09:30 | PDOC2 ---
CONSULT Date of Consult Date of Consult DATE: 09/14/18 TIME: 09:22 Referring Physician Referring Physician: Chicho Identification/Chief Complaint Chief Complaint abd pain, n/V Source Source: Chart review, Patient History of Present Illness Reason for Visit: 67 yo F with acute onset of n/V upper abd pain, now currently resolved. Previous episode in 06/2018, seen and [facility] and diagnosed with reflux. Pt seen in hospital room, currently without c/o. Past Medical History Cardiovascular: No pertinent hx Pulmonary: No pertinent hx GI: No pertinent hx, GERD Heme/Onc: No pertinent hx Hepatobiliary: No pertinent hx Past Surgical History Past Surgical History: No pertinent history Family History Family History: Other Social History No ALCOHOL: none Drugs: None Current Problem List Problem List Problems Medical Problems: (1) Abnormal liver enzymes Status: Acute (2) Cholelithiasis Status: Acute (3) Nausea & vomiting Status: Acute Current Medications Current Medications Current Medications Ondansetron HCl (Zofran) 4 mg 1X ONCE IV Last administered on 09/13/18at 14:24; Start 09/13/18 at 14:00; Stop 09/13/18 at 14:01; Status DC Sodium Chloride 500 ml @ 500 mls/hr 1X ONCE IV Last administered on 09/13/18at 14:23; Start 09/13/18 at 14:00; Stop 09/13/18 at 14:59; Status DC Multi-Ingredient Mouthwash/Gargle (Gi Cocktail) 20 ml 1X ONCE SWSW Last administered on 09/13/18at 14:26; Start 09/13/18 at 14:00; Stop 09/13/18 at 14:01; Status DC Ondansetron HCl (Zofran) 4 mg PRN Q8HRS PRN IV NAUSEA/VOMITING; Start 09/13/18 at 16:15; Stop 09/14/18 at 16:14 Morphine Sulfate (Morphine Sulfate) 2 mg PRN Q2HR PRN IV PAIN; Start 09/13/18 at 16:15; Stop 09/14/18 at 16:14 Pantoprazole Sodium (Protonix) 40 mg DAILYAC PO Last administered on 09/14/18at 07:32; Start 09/14/18 at 07:30 Pantoprazole Sodium (Protonix) 40 mg 1X ONCE PO Last administered on 09/13/18at 21:07; Start 09/13/18 at 19:30; Stop 09/13/18 at 19:35; Status DC Cefazolin Sodium/ Dextrose 50 ml @ 100 mls/hr 1X PREOP IV ; Start 09/14/18 at 09:00; Stop 09/15/18 at 18:00 Active Scripts Active Zithromax (Azithromycin) 250 Mg Tablet 1 Pkg PO UD Reported Atorvastatin Calcium 10 Mg Tablet 10 Mg PO HS Hydrochlorothiazide Tablet (Hydrochlorothiazide) 25 Mg Tablet 25 Mg PO DAILY Acetaminophen 500 Mg Tablet 500 Mg PO PRN Q6HRS PRN Zoloft (Sertraline Hcl) 50 Mg Tablet 50 Mg PO DAILY Aspir-Low (Aspirin) 81 Mg Tablet.dr 81 Mg PO DAILY Metoprolol Succinate ( Xl ) (Metoprolol Succinate) 25 Mg Tab.er.24h 25 Mg PO DAILY Allergies Allergies: Coded Allergies: No Known Drug Allergies (Unverified , 11/10/15) ROS Gastrointestinal: Yes Nausea, Yes Vomiting, Yes Abdominal Pain Physical Exam Physical Exam obese General: Alert, Oriented X3, Cooperative, No acute distress HEENT: Atraumatic, Other (dysconjugate gaze) Lungs: Normal air movement Abdomen: Soft, No tenderness Extremities: No clubbing, No cyanosis Skin: No rashes, No breakdown Neuro: Normal speech, Sensation intact Psych/Mental Status: Mental status NL, Mood NL Vitals VITALS Vital Signs Date Time Temp Pulse Resp B/P (MAP) Pulse Ox O2 Delivery O2 Flow Rate FiO2 09/14/18 07:00 98.2 90 20 123/76 (92) 90 Room Air 98.2 Labs Labs Laboratory Tests Test 09/13/18 13:35 09/13/18 14:15 09/14/18 05:00 Urine Collection Type Unknown Urine Color Shiela Urine Clarity Clear Urine pH 5.0 Urine Specific [place] >=1.030 Urine Protein 30 mg/dL (NEG-TRACE) Urine Glucose (UA) Negative mg/dL (NEG) Urine Ketones (Stick) Trace mg/dL (NEG) Urine Blood Negative (NEG) Urine Nitrite Negative (NEG) Urine Bilirubin Small (NEG) Urine Urobilinogen Dipstick 1.0 mg/dL (0.2 mg/dL) Urine Leukocyte Esterase Small (NEG) Urine RBC Occ /HPF (0-2) Urine WBC 11-20 /HPF (0-4) Urine Squamous Epithelial Cells Few /LPF Urine Bacteria Few /HPF (0-FEW) Urine Hyaline Casts Occasional /HPF Urine Mucus Mod /LPF White Blood Count 8.7 x10^3/uL (4.0-11.0) 6.5 x10^3/uL (4.0-11.0) Red Blood Count 5.88 x10^6/uL (3.50-5.40) 5.08 x10^6/uL (3.50-5.40) Hemoglobin 12.5 g/dL (12.0-15.5) 11.1 g/dL (12.0-15.5) Hematocrit 39.9 % (36.0-47.0) 34.1 % (36.0-47.0) Mean Corpuscular Volume 68 fL (79-100) 67 fL (79-100) Mean Corpuscular Hemoglobin 21 pg (25-35) 22 pg (25-35) Mean Corpuscular Hemoglobin Concent 31 g/dL (31-37) 33 g/dL (31-37) Red Cell Distribution Width 17.4 % (11.5-14.5) 17.7 % (11.5-14.5) Platelet Count 171 x10^3/uL (140-400) 143 x10^3/uL (140-400) Neutrophils (%) (Auto) 71 % (31-73) 59 % (31-73) Lymphocytes (%) (Auto) 22 % (24-48) 32 % (24-48) Monocytes (%) (Auto) 7 % (0-9) 10 % (0-9) Eosinophils (%) (Auto) 0 % (0-3) 0 % (0-3) Basophils (%) (Auto) 0 % (0-3) 0 % (0-3) Neutrophils # (Auto) 6.1 x10^3uL (1.8-7.7) 3.8 x10^3uL (1.8-7.7) Lymphocytes # (Auto) 1.9 x10^3/uL (1.0-4.8) 2.0 x10^3/uL (1.0-4.8) Monocytes # (Auto) 0.6 x10^3/uL (0.0-1.1) 0.6 x10^3/uL (0.0-1.1) Eosinophils # (Auto) 0.0 x10^3/uL (0.0-0.7) 0.0 x10^3/uL (0.0-0.7) Basophils # (Auto) 0.0 x10^3/uL (0.0-0.2) 0.0 x10^3/uL (0.0-0.2) Platelet Estimate Adequate (ADEQUATE) Polychromasia Slight Hypochromasia Mod Anisocytosis Slight Microcytosis Marked Sodium Level 140 mmol/L (136-145) 142 mmol/L (136-145) Potassium Level 4.0 mmol/L (3.5-5.1) 3.5 mmol/L (3.5-5.1) Chloride Level 101 mmol/L (98-107) 105 mmol/L (98-107) Carbon Dioxide Level 26 mmol/L (21-32) 25 mmol/L (21-32) Anion Gap 13 (6-14) 12 (6-14) Blood Urea Nitrogen 15 mg/dL (7-20) 13 mg/dL (7-20) Creatinine 0.9 mg/dL (0.6-1.0) 0.9 mg/dL (0.6-1.0) Estimated GFR (Cockcroft-Gault) 75.6 75.6 BUN/Creatinine Ratio 17 (6-20) 14 (6-20) Glucose Level 147 mg/dL (70-99) 153 mg/dL (70-99) Calcium Level 10.1 mg/dL (8.5-10.1) 9.1 mg/dL (8.5-10.1) Total Bilirubin 1.8 mg/dL (0.2-1.0) 2.6 mg/dL (0.2-1.0) Aspartate Amino Transf (AST/SGOT) 740 U/L (15-37) 780 U/L (15-37) Alanine Aminotransferase (ALT/SGPT) 579 U/L (14-59) 916 U/L (14-59) Alkaline Phosphatase 133 U/L (46-116) 140 U/L (46-116) Troponin I Quantitative < 0.017 ng/mL (0.000-0.055) GQ-Owl-N-Type Natriuretic Peptide 263 pg/mL (0-124) Total Protein 8.1 g/dL (6.4-8.2) 6.4 g/dL (6.4-8.2) Albumin 3.8 g/dL (3.4-5.0) 3.0 g/dL (3.4-5.0) Albumin/Globulin Ratio 0.9 (1.0-1.7) 0.9 (1.0-1.7) Lipase 65 U/L (73-393) Laboratory Tests Test 09/13/18 13:35 09/13/18 14:15 09/14/18 05:00 Urine Collection Type Unknown Urine Color Shiela Urine Clarity Clear Urine pH 5.0 Urine Specific [place] >=1.030 Urine Protein 30 mg/dL (NEG-TRACE) Urine Glucose (UA) Negative mg/dL (NEG) Urine Ketones (Stick) Trace mg/dL (NEG) Urine Blood Negative (NEG) Urine Nitrite Negative (NEG) Urine Bilirubin Small (NEG) Urine Urobilinogen Dipstick 1.0 mg/dL (0.2 mg/dL) Urine Leukocyte Esterase Small (NEG) Urine RBC Occ /HPF (0-2) Urine WBC 11-20 /HPF (0-4) Urine Squamous Epithelial Cells Few /LPF Urine Bacteria Few /HPF (0-FEW) Urine Hyaline Casts Occasional /HPF Urine Mucus Mod /LPF White Blood Count 8.7 x10^3/uL (4.0-11.0) 6.5 x10^3/uL (4.0-11.0) Red Blood Count 5.88 x10^6/uL (3.50-5.40) 5.08 x10^6/uL (3.50-5.40) Hemoglobin 12.5 g/dL (12.0-15.5) 11.1 g/dL (12.0-15.5) Hematocrit 39.9 % (36.0-47.0) 34.1 % (36.0-47.0) Mean Corpuscular Volume 68 fL (79-100) 67 fL (79-100) Mean Corpuscular Hemoglobin 21 pg (25-35) 22 pg (25-35) Mean Corpuscular Hemoglobin Concent 31 g/dL (31-37) 33 g/dL (31-37) Red Cell Distribution Width 17.4 % (11.5-14.5) 17.7 % (11.5-14.5) Platelet Count 171 x10^3/uL (140-400) 143 x10^3/uL (140-400) Neutrophils (%) (Auto) 71 % (31-73) 59 % (31-73) Lymphocytes (%) (Auto) 22 % (24-48) 32 % (24-48) Monocytes (%) (Auto) 7 % (0-9) 10 % (0-9) Eosinophils (%) (Auto) 0 % (0-3) 0 % (0-3) Basophils (%) (Auto) 0 % (0-3) 0 % (0-3) Neutrophils # (Auto) 6.1 x10^3uL (1.8-7.7) 3.8 x10^3uL (1.8-7.7) Lymphocytes # (Auto) 1.9 x10^3/uL (1.0-4.8) 2.0 x10^3/uL (1.0-4.8) Monocytes # (Auto) 0.6 x10^3/uL (0.0-1.1) 0.6 x10^3/uL (0.0-1.1) Eosinophils # (Auto) 0.0 x10^3/uL (0.0-0.7) 0.0 x10^3/uL (0.0-0.7) Basophils # (Auto) 0.0 x10^3/uL (0.0-0.2) 0.0 x10^3/uL (0.0-0.2) Platelet Estimate Adequate (ADEQUATE) Polychromasia Slight Hypochromasia Mod Anisocytosis Slight Microcytosis Marked Sodium Level 140 mmol/L (136-145) 142 mmol/L (136-145) Potassium Level 4.0 mmol/L (3.5-5.1) 3.5 mmol/L (3.5-5.1) Chloride Level 101 mmol/L (98-107) 105 mmol/L (98-107) Carbon Dioxide Level 26 mmol/L (21-32) 25 mmol/L (21-32) Anion Gap 13 (6-14) 12 (6-14) Blood Urea Nitrogen 15 mg/dL (7-20) 13 mg/dL (7-20) Creatinine 0.9 mg/dL (0.6-1.0) 0.9 mg/dL (0.6-1.0) Estimated GFR (Cockcroft-Gault) 75.6 75.6 BUN/Creatinine Ratio 17 (6-20) 14 (6-20) Glucose Level 147 mg/dL (70-99) 153 mg/dL (70-99) Calcium Level 10.1 mg/dL (8.5-10.1) 9.1 mg/dL (8.5-10.1) Total Bilirubin 1.8 mg/dL (0.2-1.0) 2.6 mg/dL (0.2-1.0) Aspartate Amino Transf (AST/SGOT) 740 U/L (15-37) 780 U/L (15-37) Alanine Aminotransferase (ALT/SGPT) 579 U/L (14-59) 916 U/L (14-59) Alkaline Phosphatase 133 U/L (46-116) 140 U/L (46-116) Troponin I Quantitative < 0.017 ng/mL (0.000-0.055) VR-Nel-P-Type Natriuretic Peptide 263 pg/mL (0-124) Total Protein 8.1 g/dL (6.4-8.2) 6.4 g/dL (6.4-8.2) Albumin 3.8 g/dL (3.4-5.0) 3.0 g/dL (3.4-5.0) Albumin/Globulin Ratio 0.9 (1.0-1.7) 0.9 (1.0-1.7) Lipase 65 U/L (73-393) Images Images [facility] and CXR wnl, US with gallstones and dilated CBD to 12 mm, MRCP pending Assessment/Plan Assessment/Plan Symptomatic cholelithiasis, elevated LFTs, dilated CBD. Agree with MRCP to evaluate ductal dilation. Suspect symptoms, LFTS and ductal dilation secondary to gallstone passage. If MRCP without new pathology, will plan laparoscopic cholecystectomy with cholangiogram tomorrow. R/R/B/A d/w pt. Risks, including, but not limited to: bleeding infection, damage to surrounding structures, risk of anesthesia, risk of open. She appears to understand, her questions are answered and she will d/w family and other physicians. Thanks for consult! SHERI SMITH MD September 14, 2018 09:30
[2018-09-14 11:00] VITALS: BP 134/85
--- NOTE | 2018-09-14 12:46 | NUR ---
SW following Pt for anticipated dc needs. Chart reviewed and CORBIN RN. Pt lives at home with family. No dc recommendations noted at this time.
--- NOTE | 2018-09-14 13:28 | PDOC ---
PROGRESS NOTES Chief Complaint Chief Complaint Symptomatic cholelithiasis Intractable emesis now resolved Abdominal pain secondary to cholelithiasis most likely Microcytic anemia History of GERD recent EGD done at [facility] as per history, no records available at the present time History of coronary artery disease currently asymptomatic Plan: MRCP Surgical consultation done and recommendations greatly appreciated Follow recommendations from GI wardrobe consultant as well will reassess in the am pain management DVT prophylaxis: scd and lakhwinder History of Present Illness History of Present Illness Patient name bed in no acute distress. The patient denies abdominal pain no fever or chills were reported overnight. The patient denies nausea vomiting or diarrhea and plan of care explaining detail all concerns were addressed to the b est of my abilities Vitals Vitals Vital Signs Date Time Temp Pulse Resp B/P (MAP) Pulse Ox O2 Delivery O2 Flow Rate FiO2 09/14/18 11:00 99.1 85 20 134/85 (101) 93 Room Air 99.1 Physical Exam General: Alert, Oriented X3, Cooperative, No acute distress Abdomen: Soft, No tenderness Extremities: No clubbing, No cyanosis Skin: No rashes, No breakdown Labs LABS Laboratory Tests Test 09/13/18 13:35 09/13/18 14:15 09/14/18 05:00 Urine Collection Type Unknown Urine Color Shiela Urine Clarity Clear Urine pH 5.0 Urine Specific [place] >=1.030 Urine Protein 30 mg/dL (NEG-TRACE) Urine Glucose (UA) Negative mg/dL (NEG) Urine Ketones (Stick) Trace mg/dL (NEG) Urine Blood Negative (NEG) Urine Nitrite Negative (NEG) Urine Bilirubin Small (NEG) Urine Urobilinogen Dipstick 1.0 mg/dL (0.2 mg/dL) Urine Leukocyte Esterase Small (NEG) Urine RBC Occ /HPF (0-2) Urine WBC 11-20 /HPF (0-4) Urine Squamous Epithelial Cells Few /LPF Urine Bacteria Few /HPF (0-FEW) Urine Hyaline Casts Occasional /HPF Urine Mucus Mod /LPF White Blood Count 8.7 x10^3/uL (4.0-11.0) 6.5 x10^3/uL (4.0-11.0) Red Blood Count 5.88 x10^6/uL (3.50-5.40) 5.08 x10^6/uL (3.50-5.40) Hemoglobin 12.5 g/dL (12.0-15.5) 11.1 g/dL (12.0-15.5) Hematocrit 39.9 % (36.0-47.0) 34.1 % (36.0-47.0) Mean Corpuscular Volume 68 fL (79-100) 67 fL (79-100) Mean Corpuscular Hemoglobin 21 pg (25-35) 22 pg (25-35) Mean Corpuscular Hemoglobin Concent 31 g/dL (31-37) 33 g/dL (31-37) Red Cell Distribution Width 17.4 % (11.5-14.5) 17.7 % (11.5-14.5) Platelet Count 171 x10^3/uL (140-400) 143 x10^3/uL (140-400) Neutrophils (%) (Auto) 71 % (31-73) 59 % (31-73) Lymphocytes (%) (Auto) 22 % (24-48) 32 % (24-48) Monocytes (%) (Auto) 7 % (0-9) 10 % (0-9) Eosinophils (%) (Auto) 0 % (0-3) 0 % (0-3) Basophils (%) (Auto) 0 % (0-3) 0 % (0-3) Neutrophils # (Auto) 6.1 x10^3uL (1.8-7.7) 3.8 x10^3uL (1.8-7.7) Lymphocytes # (Auto) 1.9 x10^3/uL (1.0-4.8) 2.0 x10^3/uL (1.0-4.8) Monocytes # (Auto) 0.6 x10^3/uL (0.0-1.1) 0.6 x10^3/uL (0.0-1.1) Eosinophils # (Auto) 0.0 x10^3/uL (0.0-0.7) 0.0 x10^3/uL (0.0-0.7) Basophils # (Auto) 0.0 x10^3/uL (0.0-0.2) 0.0 x10^3/uL (0.0-0.2) Platelet Estimate Adequate (ADEQUATE) Polychromasia Slight Hypochromasia Mod Anisocytosis Slight Microcytosis Marked Sodium Level 140 mmol/L (136-145) 142 mmol/L (136-145) Potassium Level 4.0 mmol/L (3.5-5.1) 3.5 mmol/L (3.5-5.1) Chloride Level 101 mmol/L (98-107) 105 mmol/L (98-107) Carbon Dioxide Level 26 mmol/L (21-32) 25 mmol/L (21-32) Anion Gap 13 (6-14) 12 (6-14) Blood Urea Nitrogen 15 mg/dL (7-20) 13 mg/dL (7-20) Creatinine 0.9 mg/dL (0.6-1.0) 0.9 mg/dL (0.6-1.0) Estimated GFR (Cockcroft-Gault) 75.6 75.6 BUN/Creatinine Ratio 17 (6-20) 14 (6-20) Glucose Level 147 mg/dL (70-99) 153 mg/dL (70-99) Calcium Level 10.1 mg/dL (8.5-10.1) 9.1 mg/dL (8.5-10.1) Total Bilirubin 1.8 mg/dL (0.2-1.0) 2.6 mg/dL (0.2-1.0) Aspartate Amino Transf (AST/SGOT) 740 U/L (15-37) 780 U/L (15-37) Alanine Aminotransferase (ALT/SGPT) 579 U/L (14-59) 916 U/L (14-59) Alkaline Phosphatase 133 U/L (46-116) 140 U/L (46-116) Troponin I Quantitative < 0.017 ng/mL (0.000-0.055) TA-Mnp-Q-Type Natriuretic Peptide 263 pg/mL (0-124) Total Protein 8.1 g/dL (6.4-8.2) 6.4 g/dL (6.4-8.2) Albumin 3.8 g/dL (3.4-5.0) 3.0 g/dL (3.4-5.0) Albumin/Globulin Ratio 0.9 (1.0-1.7) 0.9 (1.0-1.7) Lipase 65 U/L (73-393) Iron Level 59 ug/dL (50-170) Total Iron Binding Capacity 219 ug/dL (250-450) Iron Saturation 27 % (15-34) Hepatitis A IgM Antibody Nonreactive (Nonreactive) Hepatitis B Surface Antigen Nonreactive (Nonreactive) Hepatitis B Core IgM Antibody Nonreactive (Nonreactive) Hepatitis C IgG Antibody Nonreactive (Nonreactive) Review of Systems Review of Systems Pertinent as per history of present illness otherwise 14 point review of system is negative Assessment and Plan Assessmemt and Plan Problems Medical Problems: (1) Abnormal liver enzymes Status: Acute (2) Cholelithiasis Status: Acute (3) Nausea & vomiting Status: Acute Comment Review of Relevant I have reviewed the following items della (where applicable) has been applied. Labs Laboratory Tests Test 09/13/18 13:35 09/13/18 14:15 09/14/18 05:00 Urine Collection Type Unknown Urine Color Shiela Urine Clarity Clear Urine pH 5.0 Urine Specific [place] >=1.030 Urine Protein 30 mg/dL (NEG-TRACE) Urine Glucose (UA) Negative mg/dL (NEG) Urine Ketones (Stick) Trace mg/dL (NEG) Urine Blood Negative (NEG) Urine Nitrite Negative (NEG) Urine Bilirubin Small (NEG) Urine Urobilinogen Dipstick 1.0 mg/dL (0.2 mg/dL) Urine Leukocyte Esterase Small (NEG) Urine RBC Occ /HPF (0-2) Urine WBC 11-20 /HPF (0-4) Urine Squamous Epithelial Cells Few /LPF Urine Bacteria Few /HPF (0-FEW) Urine Hyaline Casts Occasional /HPF Urine Mucus Mod /LPF White Blood Count 8.7 x10^3/uL (4.0-11.0) 6.5 x10^3/uL (4.0-11.0) Red Blood Count 5.88 x10^6/uL (3.50-5.40) 5.08 x10^6/uL (3.50-5.40) Hemoglobin 12.5 g/dL (12.0-15.5) 11.1 g/dL (12.0-15.5) Hematocrit 39.9 % (36.0-47.0) 34.1 % (36.0-47.0) Mean Corpuscular Volume 68 fL (79-100) 67 fL (79-100) Mean Corpuscular Hemoglobin 21 pg (25-35) 22 pg (25-35) Mean Corpuscular Hemoglobin Concent 31 g/dL (31-37) 33 g/dL (31-37) Red Cell Distribution Width 17.4 % (11.5-14.5) 17.7 % (11.5-14.5) Platelet Count 171 x10^3/uL (140-400) 143 x10^3/uL (140-400) Neutrophils (%) (Auto) 71 % (31-73) 59 % (31-73) Lymphocytes (%) (Auto) 22 % (24-48) 32 % (24-48) Monocytes (%) (Auto) 7 % (0-9) 10 % (0-9) Eosinophils (%) (Auto) 0 % (0-3) 0 % (0-3) Basophils (%) (Auto) 0 % (0-3) 0 % (0-3) Neutrophils # (Auto) 6.1 x10^3uL (1.8-7.7) 3.8 x10^3uL (1.8-7.7) Lymphocytes # (Auto) 1.9 x10^3/uL (1.0-4.8) 2.0 x10^3/uL (1.0-4.8) Monocytes # (Auto) 0.6 x10^3/uL (0.0-1.1) 0.6 x10^3/uL (0.0-1.1) Eosinophils # (Auto) 0.0 x10^3/uL (0.0-0.7) 0.0 x10^3/uL (0.0-0.7) Basophils # (Auto) 0.0 x10^3/uL (0.0-0.2) 0.0 x10^3/uL (0.0-0.2) Platelet Estimate Adequate (ADEQUATE) Polychromasia Slight Hypochromasia Mod Anisocytosis Slight Microcytosis Marked Sodium Level 140 mmol/L (136-145) 142 mmol/L (136-145) Potassium Level 4.0 mmol/L (3.5-5.1) 3.5 mmol/L (3.5-5.1) Chloride Level 101 mmol/L (98-107) 105 mmol/L (98-107) Carbon Dioxide Level 26 mmol/L (21-32) 25 mmol/L (21-32) Anion Gap 13 (6-14) 12 (6-14) Blood Urea Nitrogen 15 mg/dL (7-20) 13 mg/dL (7-20) Creatinine 0.9 mg/dL (0.6-1.0) 0.9 mg/dL (0.6-1.0) Estimated GFR (Cockcroft-Gault) 75.6 75.6 BUN/Creatinine Ratio 17 (6-20) 14 (6-20) Glucose Level 147 mg/dL (70-99) 153 mg/dL (70-99) Calcium Level 10.1 mg/dL (8.5-10.1) 9.1 mg/dL (8.5-10.1) Total Bilirubin 1.8 mg/dL (0.2-1.0) 2.6 mg/dL (0.2-1.0) Aspartate Amino Transf (AST/SGOT) 740 U/L (15-37) 780 U/L (15-37) Alanine Aminotransferase (ALT/SGPT) 579 U/L (14-59) 916 U/L (14-59) Alkaline Phosphatase 133 U/L (46-116) 140 U/L (46-116) Troponin I Quantitative < 0.017 ng/mL (0.000-0.055) MA-Xyy-G-Type Natriuretic Peptide 263 pg/mL (0-124) Total Protein 8.1 g/dL (6.4-8.2) 6.4 g/dL (6.4-8.2) Albumin 3.8 g/dL (3.4-5.0) 3.0 g/dL (3.4-5.0) Albumin/Globulin Ratio 0.9 (1.0-1.7) 0.9 (1.0-1.7) Lipase 65 U/L (73-393) Iron Level 59 ug/dL (50-170) Total Iron Binding Capacity 219 ug/dL (250-450) Iron Saturation 27 % (15-34) Hepatitis A IgM Antibody Nonreactive (Nonreactive) Hepatitis B Surface Antigen Nonreactive (Nonreactive) Hepatitis B Core IgM Antibody Nonreactive (Nonreactive) Hepatitis C IgG Antibody Nonreactive (Nonreactive) Laboratory Tests Test 09/13/18 13:35 09/13/18 14:15 09/14/18 05:00 Urine Collection Type Unknown Urine Color Shiela Urine Clarity Clear Urine pH 5.0 Urine Specific [place] >=1.030 Urine Protein 30 mg/dL (NEG-TRACE) Urine Glucose (UA) Negative mg/dL (NEG) Urine Ketones (Stick) Trace mg/dL (NEG) Urine Blood Negative (NEG) Urine Nitrite Negative (NEG) Urine Bilirubin Small (NEG) Urine Urobilinogen Dipstick 1.0 mg/dL (0.2 mg/dL) Urine Leukocyte Esterase Small (NEG) Urine RBC Occ /HPF (0-2) Urine WBC 11-20 /HPF (0-4) Urine Squamous Epithelial Cells Few /LPF Urine Bacteria Few /HPF (0-FEW) Urine Hyaline Casts Occasional /HPF Urine Mucus Mod /LPF White Blood Count 8.7 x10^3/uL (4.0-11.0) 6.5 x10^3/uL (4.0-11.0) Red Blood Count 5.88 x10^6/uL (3.50-5.40) 5.08 x10^6/uL (3.50-5.40) Hemoglobin 12.5 g/dL (12.0-15.5) 11.1 g/dL (12.0-15.5) Hematocrit 39.9 % (36.0-47.0) 34.1 % (36.0-47.0) Mean Corpuscular Volume 68 fL (79-100) 67 fL (79-100) Mean Corpuscular Hemoglobin 21 pg (25-35) 22 pg (25-35) Mean Corpuscular Hemoglobin Concent 31 g/dL (31-37) 33 g/dL (31-37) Red Cell Distribution Width 17.4 % (11.5-14.5) 17.7 % (11.5-14.5) Platelet Count 171 x10^3/uL (140-400) 143 x10^3/uL (140-400) Neutrophils (%) (Auto) 71 % (31-73) 59 % (31-73) Lymphocytes (%) (Auto) 22 % (24-48) 32 % (24-48) Monocytes (%) (Auto) 7 % (0-9) 10 % (0-9) Eosinophils (%) (Auto) 0 % (0-3) 0 % (0-3) Basophils (%) (Auto) 0 % (0-3) 0 % (0-3) Neutrophils # (Auto) 6.1 x10^3uL (1.8-7.7) 3.8 x10^3uL (1.8-7.7) Lymphocytes # (Auto) 1.9 x10^3/uL (1.0-4.8) 2.0 x10^3/uL (1.0-4.8) Monocytes # (Auto) 0.6 x10^3/uL (0.0-1.1) 0.6 x10^3/uL (0.0-1.1) Eosinophils # (Auto) 0.0 x10^3/uL (0.0-0.7) 0.0 x10^3/uL (0.0-0.7) Basophils # (Auto) 0.0 x10^3/uL (0.0-0.2) 0.0 x10^3/uL (0.0-0.2) Platelet Estimate Adequate (ADEQUATE) Polychromasia Slight Hypochromasia Mod Anisocytosis Slight Microcytosis Marked Sodium Level 140 mmol/L (136-145) 142 mmol/L (136-145) Potassium Level 4.0 mmol/L (3.5-5.1) 3.5 mmol/L (3.5-5.1) Chloride Level 101 mmol/L (98-107) 105 mmol/L (98-107) Carbon Dioxide Level 26 mmol/L (21-32) 25 mmol/L (21-32) Anion Gap 13 (6-14) 12 (6-14) Blood Urea Nitrogen 15 mg/dL (7-20) 13 mg/dL (7-20) Creatinine 0.9 mg/dL (0.6-1.0) 0.9 mg/dL (0.6-1.0) Estimated GFR (Cockcroft-Gault) 75.6 75.6 BUN/Creatinine Ratio 17 (6-20) 14 (6-20) Glucose Level 147 mg/dL (70-99) 153 mg/dL (70-99) Calcium Level 10.1 mg/dL (8.5-10.1) 9.1 mg/dL (8.5-10.1) Total Bilirubin 1.8 mg/dL (0.2-1.0) 2.6 mg/dL (0.2-1.0) Aspartate Amino Transf (AST/SGOT) 740 U/L (15-37) 780 U/L (15-37) Alanine Aminotransferase (ALT/SGPT) 579 U/L (14-59) 916 U/L (14-59) Alkaline Phosphatase 133 U/L (46-116) 140 U/L (46-116) Troponin I Quantitative < 0.017 ng/mL (0.000-0.055) WF-Ndg-L-Type Natriuretic Peptide 263 pg/mL (0-124) Total Protein 8.1 g/dL (6.4-8.2) 6.4 g/dL (6.4-8.2) Albumin 3.8 g/dL (3.4-5.0) 3.0 g/dL (3.4-5.0) Albumin/Globulin Ratio 0.9 (1.0-1.7) 0.9 (1.0-1.7) Lipase 65 U/L (73-393) Iron Level 59 ug/dL (50-170) Total Iron Binding Capacity 219 ug/dL (250-450) Iron Saturation 27 % (15-34) Hepatitis A IgM Antibody Nonreactive (Nonreactive) Hepatitis B Surface Antigen Nonreactive (Nonreactive) Hepatitis B Core IgM Antibody Nonreactive (Nonreactive) Hepatitis C IgG Antibody Nonreactive (Nonreactive) Medications Current Medications Ondansetron HCl (Zofran) 4 mg 1X ONCE IV Last administered on 09/13/18at 14:24; Start 09/13/18 at 14:00; Stop 09/13/18 at 14:01; Status DC Sodium Chloride 500 ml @ 500 mls/hr 1X ONCE IV Last administered on 09/13/18at 14:23; Start 09/13/18 at 14:00; Stop 09/13/18 at 14:59; Status DC Multi-Ingredient Mouthwash/Gargle (Gi Cocktail) 20 ml 1X ONCE SWSW Last administered on 09/13/18at 14:26; Start 09/13/18 at 14:00; Stop 09/13/18 at 14:01; Status DC Ondansetron HCl (Zofran) 4 mg PRN Q8HRS PRN IV NAUSEA/VOMITING; Start 09/13/18 at 16:15; Stop 09/14/18 at 16:14 Morphine Sulfate (Morphine Sulfate) 2 mg PRN Q2HR PRN IV PAIN; Start 09/13/18 at 16:15; Stop 09/14/18 at 16:14 Pantoprazole Sodium (Protonix) 40 mg DAILYAC PO Last administered on 09/14/18at 07:32; Start 09/14/18 at 07:30 Pantoprazole Sodium (Protonix) 40 mg 1X ONCE PO Last administered on 09/13/18at 21:07; Start 09/13/18 at 19:30; Stop 09/13/18 at 19:35; Status DC Cefazolin Sodium/ Dextrose 50 ml @ 100 mls/hr 1X PREOP IV ; Start 09/14/18 at 09:00; Stop 09/15/18 at 18:00 Heparin Sodium (Porcine) 1000 unit/Sodium Chloride 1,001 ml @ 1,001 mls/hr 1X ONCE IRR ; Start 09/15/18 at 06:00; Stop 09/15/18 at 06:59 Active Scripts Active Zithromax (Azithromycin) 250 Mg Tablet 1 Pkg PO UD Reported Atorvastatin Calcium 10 Mg Tablet 10 Mg PO HS Hydrochlorothiazide Tablet (Hydrochlorothiazide) 25 Mg Tablet 25 Mg PO DAILY Acetaminophen 500 Mg Tablet 500 Mg PO PRN Q6HRS PRN Zoloft (Sertraline Hcl) 50 Mg Tablet 50 Mg PO DAILY Aspir-Low (Aspirin) 81 Mg Tablet.dr 81 Mg PO DAILY Metoprolol Succinate ( Xl ) (Metoprolol Succinate) 25 Mg Tab.er.24h 25 Mg PO DAILY Vitals/I & O Vital Sign - Last 24 Hours 09/13/18 09/13/18 09/13/18 09/13/18 13:45 17:11 17:41 19:00 Temp 97.9 97.9 97.9 97.9 Pulse 67 84 84 93 Resp 18 18 18 16 B/P (MAP) 161/77 (105) 128/75 (92) 132/79 (96) 116/61 (79) Pulse Ox 96 94 94 96 O2 Delivery Room Air Room Air Room Air Room Air 09/13/18 09/13/18 09/14/18 09/14/18 20:30 23:41 03:08 07:00 Temp 99.6 99.4 98.2 99.6 99.4 98.2 Pulse 93 91 90 Resp 16 24 20 B/P (MAP) 122/74 (90) 120/60 (80) 123/76 (92) Pulse Ox 96 93 90 O2 Delivery Room Air Room Air Room Air Room Air 09/14/18 09/14/18 07:35 11:00 Temp 99.1 99.1 Pulse 85 Resp 20 B/P (MAP) 134/85 (101) Pulse Ox 93 O2 Delivery Room Air Room Air Intake and Output 09/13/18 09/13/18 09/14/18 14:59 22:59 06:59 Intake Total 800 ml Output Total 0 ml Balance 800 ml CHAPARRO ANTUNEZ MD September 14, 2018 13:28
[2018-09-14 15:00] VITALS: BP 123/67
[2018-09-14 19:00] VITALS: BP 138/66
[2018-09-14 23:01] VITALS: BP 135/76
[2018-09-15] VITALS (11 sets, daily range): BP systolic 121–172; BP diastolic 68–99
[2018-09-15 04:42] LABS: ALBUMIN 2.7 g/dL (3.4-5.0); DIRECT BILIRUBIN 1.4 mg/dL (0.0-0.2); TOTAL BILIRUBIN 2.3 mg/dL (0.2-1.0)
[2018-09-15] MEDS ORDERED: HEPARIN 1,000 UNIT in IV NORMAL SALINE 1,000 ML for SURG PERIOP IRR ONE ×2 (06:00→13:30)
[2018-09-15] MEDS ORDERED: PROCHLORPERAZINE 10 MG/2 ML VIAL. IV PRN (07:00)
[2018-09-15] MEDS ORDERED: fentaNYL PF VIAL 100 MCG/2 ML VIAL IV PRN ×2 (07:00)
[2018-09-15] MEDS ORDERED: MORPHINE SULFATE 2 MG/ML VIAL. IV PRN ×2 (07:00→16:00)
[2018-09-15] MEDS ORDERED: ONDANSETRON PF 4 MG/2 ML VIAL. IV PRN ×2 (07:00→16:00)
[2018-09-15] MEDS ORDERED: IV RINGERS,LACTATED 1000ML 1,000 ML IV SCH (07:00)
[2018-09-15] MEDS ORDERED: LIDOCAINE 1% PF 2 ML VIAL. ID PRN (07:00)
[2018-09-15] MEDS ORDERED: HYDROmorphone 2 MG/ML VIAL IV PRN (07:00)
[2018-09-15] MEDS: PANTOPRAZOLE 40 MG TABLET.DR. PO SCH (07:30)
--- NOTE | 2018-09-15 10:10 | PDOC ---
SUDHEER PIPER TEXTILE PIN WORKER 09/15/18 1010: SURGICAL PROGRESS NOTE Subjective just back from MRCP denies pain Vital Signs Vital Signs Date Time Temp Pulse Resp B/P (MAP) Pulse Ox O2 Delivery O2 Flow Rate FiO2 09/15/18 08:00 Room Air 09/15/18 07:22 98.0 78 18 121/68 (85) 95 98.0 I&O Intake and Output 09/15/18 07:00 Intake Total 2040 ml Output Total 500 ml Balance 1540 ml Intake Oral 2040 ml Output Urine Total 500 ml # Voids 2 General: Alert, Oriented X3, Cooperative, No acute distress Abdomen: Soft, No tenderness Labs Laboratory Tests Test 09/13/18 13:35 09/13/18 14:15 09/14/18 05:00 09/15/18 03:50 Urine Collection Type Unknown Urine Color Shiela Urine Clarity Clear Urine pH 5.0 Urine Specific [place] >=1.030 Urine Protein 30 mg/dL (NEG-TRACE) Urine Glucose (UA) Negative mg/dL (NEG) Urine Ketones (Stick) Trace mg/dL (NEG) Urine Blood Negative (NEG) Urine Nitrite Negative (NEG) Urine Bilirubin Small (NEG) Urine Urobilinogen Dipstick 1.0 mg/dL (0.2 mg/dL) Urine Leukocyte Esterase Small (NEG) Urine RBC Occ /HPF (0-2) Urine WBC 11-20 /HPF (0-4) Urine Squamous Epithelial Cells Few /LPF Urine Bacteria Few /HPF (0-FEW) Urine Hyaline Casts Occasional /HPF Urine Mucus Mod /LPF White Blood Count 8.7 x10^3/uL (4.0-11.0) 6.5 x10^3/uL (4.0-11.0) Red Blood Count 5.88 x10^6/uL (3.50-5.40) 5.08 x10^6/uL (3.50-5.40) Hemoglobin 12.5 g/dL (12.0-15.5) 11.1 g/dL (12.0-15.5) Hematocrit 39.9 % (36.0-47.0) 34.1 % (36.0-47.0) Mean Corpuscular Volume 68 fL (79-100) 67 fL (79-100) Mean Corpuscular Hemoglobin 21 pg (25-35) 22 pg (25-35) Mean Corpuscular Hemoglobin Concent 31 g/dL (31-37) 33 g/dL (31-37) Red Cell Distribution Width 17.4 % (11.5-14.5) 17.7 % (11.5-14.5) Platelet Count 171 x10^3/uL (140-400) 143 x10^3/uL (140-400) Neutrophils (%) (Auto) 71 % (31-73) 59 % (31-73) Lymphocytes (%) (Auto) 22 % (24-48) 32 % (24-48) Monocytes (%) (Auto) 7 % (0-9) 10 % (0-9) Eosinophils (%) (Auto) 0 % (0-3) 0 % (0-3) Basophils (%) (Auto) 0 % (0-3) 0 % (0-3) Neutrophils # (Auto) 6.1 x10^3uL (1.8-7.7) 3.8 x10^3uL (1.8-7.7) Lymphocytes # (Auto) 1.9 x10^3/uL (1.0-4.8) 2.0 x10^3/uL (1.0-4.8) Monocytes # (Auto) 0.6 x10^3/uL (0.0-1.1) 0.6 x10^3/uL (0.0-1.1) Eosinophils # (Auto) 0.0 x10^3/uL (0.0-0.7) 0.0 x10^3/uL (0.0-0.7) Basophils # (Auto) 0.0 x10^3/uL (0.0-0.2) 0.0 x10^3/uL (0.0-0.2) Platelet Estimate Adequate (ADEQUATE) Polychromasia Slight Hypochromasia Mod Anisocytosis Slight Microcytosis Marked Sodium Level 140 mmol/L (136-145) 142 mmol/L (136-145) Potassium Level 4.0 mmol/L (3.5-5.1) 3.5 mmol/L (3.5-5.1) Chloride Level 101 mmol/L (98-107) 105 mmol/L (98-107) Carbon Dioxide Level 26 mmol/L (21-32) 25 mmol/L (21-32) Anion Gap 13 (6-14) 12 (6-14) Blood Urea Nitrogen 15 mg/dL (7-20) 13 mg/dL (7-20) Creatinine 0.9 mg/dL (0.6-1.0) 0.9 mg/dL (0.6-1.0) Estimated GFR (Cockcroft-Gault) 75.6 75.6 BUN/Creatinine Ratio 17 (6-20) 14 (6-20) Glucose Level 147 mg/dL (70-99) 153 mg/dL (70-99) Calcium Level 10.1 mg/dL (8.5-10.1) 9.1 mg/dL (8.5-10.1) Total Bilirubin 1.8 mg/dL (0.2-1.0) 2.6 mg/dL (0.2-1.0) 2.3 mg/dL (0.2-1.0) Aspartate Amino Transf (AST/SGOT) 740 U/L (15-37) 780 U/L (15-37) 301 U/L (15-37) Alanine Aminotransferase (ALT/SGPT) 579 U/L (14-59) 916 U/L (14-59) 626 U/L (14-59) Alkaline Phosphatase 133 U/L (46-116) 140 U/L (46-116) 133 U/L (46-116) Troponin I Quantitative < 0.017 ng/mL (0.000-0.055) TP-Alb-T-Type Natriuretic Peptide 263 pg/mL (0-124) Total Protein 8.1 g/dL (6.4-8.2) 6.4 g/dL (6.4-8.2) 6.0 g/dL (6.4-8.2) Albumin 3.8 g/dL (3.4-5.0) 3.0 g/dL (3.4-5.0) 2.7 g/dL (3.4-5.0) Albumin/Globulin Ratio 0.9 (1.0-1.7) 0.9 (1.0-1.7) Lipase 65 U/L (73-393) Iron Level 59 ug/dL (50-170) Total Iron Binding Capacity 219 ug/dL (250-450) Iron Saturation 27 % (15-34) Hepatitis A IgM Antibody Nonreactive (Nonreactive) Hepatitis B Surface Antigen Nonreactive (Nonreactive) Hepatitis B Core IgM Antibody Nonreactive (Nonreactive) Hepatitis C IgG Antibody Nonreactive (Nonreactive) Direct Bilirubin 1.4 mg/dL (0.0-0.2) Laboratory Tests Test 09/15/18 03:50 Total Bilirubin 2.3 mg/dL (0.2-1.0) Direct Bilirubin 1.4 mg/dL (0.0-0.2) Aspartate Amino Transf (AST/SGOT) 301 U/L (15-37) Alanine Aminotransferase (ALT/SGPT) 626 U/L (14-59) Alkaline Phosphatase 133 U/L (46-116) Total Protein 6.0 g/dL (6.4-8.2) Albumin 2.7 g/dL (3.4-5.0) Problem List Problems Medical Problems: (1) Abnormal liver enzymes Status: Acute (2) Cholelithiasis Status: Acute (3) Nausea & vomiting Status: Acute Assessment/Plan awaiting MRCP results SHERI SMITH MD 09/15/18 1338: SURGICAL PROGRESS NOTE Assessment/Plan Pt interested in surgery. Reviewed MRCP with radiology, no masses or obstructing stones. Suspect passage of gallstone. TO OR for laparoscopic versus open cholecystectomy with cholangiogram, liver biopsy (elevated LFTs) R/R/B/A d/w pt and pt's supportive family. Risks, including, but not limited to: bleeding, infection, damage to surrounding structures, risk of anesthesia, risk of open, risk of . They appear to understand, their questions are answered and they elect to proceed. SUDHEER PIPER TEXTILE PIN WORKER September 15, 2018 10:10 SHERI SMITH MD September 15, 2018 13:38
--- NOTE | 2018-09-15 12:13 | PDOC ---
Subjective: Subjective: 6-7 family members present. Pt wants me to get Dr. Mayfield in here because she's ready for surgery - says she's supposed to go at noon. No abd pain or nausea. Has been NPO. Objective: Vital Signs: Vital Signs Date Time Temp Pulse Resp B/P (MAP) Pulse Ox O2 Delivery O2 Flow Rate FiO2 09/15/18 10:56 98.9 79 19 147/85 (105) 95 Room Air 98.9 Labs: Laboratory Tests Test 09/15/18 03:50 Total Bilirubin 2.3 mg/dL Direct Bilirubin 1.4 mg/dL Aspartate Amino Transf (AST/SGOT) 301 U/L Alanine Aminotransferase (ALT/SGPT) 626 U/L Alkaline Phosphatase 133 U/L Total Protein 6.0 g/dL Albumin 2.7 g/dL Curre PE: GEN: NAD LUNGS: CTAB HEART: RRR ABD: S/ND/NT NEURO/PSYCH: A & O 3, frustrated A/P: Vomiting, chest/abd pain - resolved Elevated LFTs, cholelithiasis/sludge, dilated CBD -- LFTs a bit better. Symptoms resolved. D/w RN - might need to clarify plans because pt/family has questions - from GI standpoint, await MRCP. SILKE COWART September 15, 2018 12:13
[2018-09-15] MEDS ORDERED: BISACODYL 10 MG SUPP.RECT. ONE (12:27)
[2018-09-15] MEDS ORDERED: BUPIVAC MPF-EPI 0.5%-1:200000 30 ML VIAL. ONE (12:27)
[2018-09-15] MEDS ORDERED: SURGICEL HEMOSTAT 2X3 EACH. ONE (12:27)
[2018-09-15] MEDS ORDERED: IOHEXOL 300 MG/ML 50 ML VIAL. ONE (12:27)
--- NOTE | 2018-09-15 13:26 | RAD ---
MRCP, 09/15/2018: HISTORY: Elevated liver function tests, cholelithiasis Imaging was performed in axial and coronal planes utilizing a variety of imaging sequences including T2 weighted, fat suppressed T2 weighted, diffusion-weighted and opposed phase gradient echo sequences. Heavily T2 weighted MRCP sequences were obtained with and without respiratory gating. 3-D MRCP images were reconstructed. There are multiple gallstones evident in the gallbladder. There is edematous thickening of the gallbladder bunn. The common hepatic duct is mildly dilated measuring 11 mm. The mid and distal common bile duct taper normally. No biliary ductal filling defect is seen to suggest choledocholithiasis. No mass is seen in the pancreatic head or ampullary region. The pancreatic duct is unremarkable. IMPRESSION: 1. Mild dilatation of the common hepatic duct without evidence of choledocholithiasis or an obstructing mass. 2. Cholelithiasis with edematous gallbladder wall thickening compatible with acute cholecystitis. Electronically signed by: Lorenzo Love MD (09/15/2018 1:23 PM) [facility]
[2018-09-15] MEDS ORDERED: ONDANSETRON PF 4 MG/2 ML VIAL. ONE (13:30)
[2018-09-15] MEDS ORDERED: LIDOCAINE 2% PF 5 ML VIAL. ONE (13:30)
[2018-09-15] MEDS ORDERED: PROPOFOL 20 ML IV ONE (13:30)
[2018-09-15] MEDS ORDERED: ROCURONIUM 50 MG/5 ML VIAL. ONE (13:30)
[2018-09-15] MEDS ORDERED: FAMOTIDINE 20 MG/2 ML VIAL ONE (13:30)
[2018-09-15] MEDS ORDERED: DEXAMETHASONE SOD PHOS 4 MG/ML VIAL ONE (13:30)
[2018-09-15] MEDS ORDERED: fentaNYL PF VIAL 100 MCG/2 ML VIAL ONE (13:31)
--- NOTE | 2018-09-15 15:26 | RAD ---
Intraoperative cholangiogram, 09/15/2018: HISTORY: Cholecystectomy 5 spot films from surgery are presented for review. Contrast has been injected into the cystic duct remnant. 44 seconds of fluoroscopy time was utilized. There is good flow contrast into the duodenum at the ampulla. The mid common bile duct is mildly dilated. No filling defect is seen to suggest a retained calculus. There was preferential flow of contrast into the duodenum and therefore the intrahepatic ducts were not adequately opacified. IMPRESSION: No evidence of a retained common duct calculus. Electronically signed by: Lorenzo Love MD (09/15/2018 3:23 PM) [facility]
[2018-09-15] MEDS ORDERED: GLYCOPYRROLATE 1 MG/5 ML VIAL. ONE (15:46)
[2018-09-15] MEDS ORDERED: NEOSTIGMINE METHYLSULFATE 5 MG/5 ML SYRINGE. ONE (15:46)
[2018-09-15] MEDS ORDERED: SEVOFLURANE 61 TO 120 MINUTES. IH ONE (15:48)
[2018-09-15] MEDS ORDERED: 0.9 % SODIUM CHLORIDE 10 ML DISP.SYRIN. IV PRN (16:00)
[2018-09-15] MEDS ORDERED: DEXTROSE 50% 25 GM / 50ML DISP.SYRIN. IV PRN (16:00)
--- NOTE | 2018-09-15 16:05 | PDOC4 ---
OPERATIVE NOTE Date: Date: September 15, 2018 Pre-Op Diagnosis: Elevated LFTs, calculous cholecystitis Post-Op Diagnosis: same Procedure Performed: Laparoscopic cholecystectomy with cholangiogram, liver biopsy Surgeon: Charles Smith Anesthesia Type: GETA plus local Blood Loss: 50 Specimans Obtained: gallbladder, liver biopsy Findings: Severe cholecystitis, irma conor ivonne adhesions, no common bile duct stones, grossly normal liver Complications: none Operative Note: After obtaining informed consent, patient was taken to OR, induced under GETA and prepped in the usual fashion. 5 mm ports placed umbilical and 2 x RUQ, 12 port placed epigastric, all under laparoscopic guidance. Abdominal cavity was otherwise unremarkable after exploration. Liver grossly normal in appearance. Endoshear used to excise portion of liver and sent to pathology for evaluation. Hemostasis obtained with cautery. Irma conor ivonne adhesions taken down sharply. Gallbladder severely acutely and chronically inflamed. Critical view dissected out. Anterior cystic artery ligated and divided. Cholangiogram obtained via cystic duct. It was dilated but tapered nicely with free extravasation into duodenum. Difficult to fill proximal duct fully secondary to ready contrast into duodenum. Portions of proximal ducts were seen. Cystic duct ligated with hemolok and large clips given large size. Gallbladder taken off fossa using cautery, placed in bag, delivered and sent to pathology for evaluation. Copious irrigation. No evidence of bleeding or other pathology. 19 DUGLAS drain placed in fossa via RUQ site. Secured with 3 0 nylon. Ports removed without bleeding. Fascia repaired with 0 vicryl. Skin repaired with 4 0 monocryl. Dressing placed. Patient tolerated procedure well and sent to PACU in stable condition. All counts correct. No immediate complications. Wound class is 4, dirty. SHERI SMITH MD September 15, 2018 16:05
[2018-09-15] MEDS ORDERED: IPRATRPIUM/ALBUTEROL 0.5/2.5MG 3 ML NEBU. ONE (16:45)
[2018-09-15] MEDS ORDERED: IPRATRPIUM/ALBUTEROL 0.5/2.5MG 3 ML NEBU. NEB ONE (17:00)
[2018-09-15] MEDS: IV RINGERS,LACTATED 1000ML 1,000 ML IV SCH (18:07)
[2018-09-15] MEDS: DOCUSATE SODIUM 100 MG CAPSULE. PO SCH (21:00)
--- NOTE | 2018-09-15 21:21 | PDOC ---
PROGRESS NOTES Chief Complaint Chief Complaint Symptomatic cholelithiasis Intractable emesis now resolved Abdominal pain secondary to cholelithiasis most likely Microcytic anemia History of GERD recent EGD done at as per history, no records available at the present time History of coronary artery disease currently asymptomatic Plan: MRCP Surgical consultation done and recommendations greatly appreciated Follow recommendations from GI senior consultant as well will reassess in the am pain management DVT prophylaxis: scd and lakhwinder History of Present Illness History of Present Illness Patietn undergoing surgery, she was not in her room at the time of my two attempts to visit. Chart reviewed Vitals Vitals Vital Signs Date Time Temp Pulse Resp B/P (MAP) Pulse Ox O2 Delivery O2 Flow Rate FiO2 09/15/18 17:36 98.6 94 24 162/92 90 Nasal Cannula 6 98.6 Labs LABS Laboratory Tests Test 09/15/18 03:50 Total Bilirubin 2.3 mg/dL (0.2-1.0) Direct Bilirubin 1.4 mg/dL (0.0-0.2) Aspartate Amino Transf (AST/SGOT) 301 U/L (15-37) Alanine Aminotransferase (ALT/SGPT) 626 U/L (14-59) Alkaline Phosphatase 133 U/L (46-116) Total Protein 6.0 g/dL (6.4-8.2) Albumin 2.7 g/dL (3.4-5.0) Assessment and Plan Assessmemt and Plan Problems Medical Problems: (1) Abnormal liver enzymes Status: Acute (2) Cholelithiasis Status: Acute (3) Nausea & vomiting Status: Acute Comment Review of Relevant I have reviewed the following items della (where applicable) has been applied. Labs Laboratory Tests Test 09/14/18 05:00 09/15/18 03:50 White Blood Count 6.5 x10^3/uL (4.0-11.0) Red Blood Count 5.08 x10^6/uL (3.50-5.40) Hemoglobin 11.1 g/dL (12.0-15.5) Hematocrit 34.1 % (36.0-47.0) Mean Corpuscular Volume 67 fL (79-100) Mean Corpuscular Hemoglobin 22 pg (25-35) Mean Corpuscular Hemoglobin Concent 33 g/dL (31-37) Red Cell Distribution Width 17.7 % (11.5-14.5) Platelet Count 143 x10^3/uL (140-400) Neutrophils (%) (Auto) 59 % (31-73) Lymphocytes (%) (Auto) 32 % (24-48) Monocytes (%) (Auto) 10 % (0-9) Eosinophils (%) (Auto) 0 % (0-3) Basophils (%) (Auto) 0 % (0-3) Neutrophils # (Auto) 3.8 x10^3uL (1.8-7.7) Lymphocytes # (Auto) 2.0 x10^3/uL (1.0-4.8) Monocytes # (Auto) 0.6 x10^3/uL (0.0-1.1) Eosinophils # (Auto) 0.0 x10^3/uL (0.0-0.7) Basophils # (Auto) 0.0 x10^3/uL (0.0-0.2) Sodium Level 142 mmol/L (136-145) Potassium Level 3.5 mmol/L (3.5-5.1) Chloride Level 105 mmol/L (98-107) Carbon Dioxide Level 25 mmol/L (21-32) Anion Gap 12 (6-14) Blood Urea Nitrogen 13 mg/dL (7-20) Creatinine 0.9 mg/dL (0.6-1.0) Estimated GFR (Cockcroft-Gault) 75.6 BUN/Creatinine Ratio 14 (6-20) Glucose Level 153 mg/dL (70-99) Calcium Level 9.1 mg/dL (8.5-10.1) Iron Level 59 ug/dL (50-170) Total Iron Binding Capacity 219 ug/dL (250-450) Iron Saturation 27 % (15-34) Total Bilirubin 2.6 mg/dL (0.2-1.0) 2.3 mg/dL (0.2-1.0) Aspartate Amino Transf (AST/SGOT) 780 U/L (15-37) 301 U/L (15-37) Alanine Aminotransferase (ALT/SGPT) 916 U/L (14-59) 626 U/L (14-59) Alkaline Phosphatase 140 U/L (46-116) 133 U/L (46-116) Total Protein 6.4 g/dL (6.4-8.2) 6.0 g/dL (6.4-8.2) Albumin 3.0 g/dL (3.4-5.0) 2.7 g/dL (3.4-5.0) Albumin/Globulin Ratio 0.9 (1.0-1.7) Hepatitis A IgM Antibody Nonreactive (Nonreactive) Hepatitis B Surface Antigen Nonreactive (Nonreactive) Hepatitis B Core IgM Antibody Nonreactive (Nonreactive) Hepatitis C IgG Antibody Nonreactive (Nonreactive) Direct Bilirubin 1.4 mg/dL (0.0-0.2) Laboratory Tests Test 09/15/18 03:50 Total Bilirubin 2.3 mg/dL (0.2-1.0) Direct Bilirubin 1.4 mg/dL (0.0-0.2) Aspartate Amino Transf (AST/SGOT) 301 U/L (15-37) Alanine Aminotransferase (ALT/SGPT) 626 U/L (14-59) Alkaline Phosphatase 133 U/L (46-116) Total Protein 6.0 g/dL (6.4-8.2) Albumin 2.7 g/dL (3.4-5.0) Medications Current Medications Ondansetron HCl (Zofran) 4 mg 1X ONCE IV Last administered on 09/13/18at 14:24; Start 09/13/18 at 14:00; Stop 09/13/18 at 14:01; Status DC Sodium Chloride 500 ml @ 500 mls/hr 1X ONCE IV Last administered on 09/13/18at 14:23; Start 09/13/18 at 14:00; Stop 09/13/18 at 14:59; Status DC Multi-Ingredient Mouthwash/Gargle (Gi Cocktail) 20 ml 1X ONCE SWSW Last administered on 09/13/18at 14:26; Start 09/13/18 at 14:00; Stop 09/13/18 at 14 :01; Status DC Ondansetron HCl (Zofran) 4 mg PRN Q8HRS PRN IV NAUSEA/VOMITING; Start 09/13/18 at 16:15; Stop 09/14/18 at 16:14; Status DC Morphine Sulfate (Morphine Sulfate) 2 mg PRN Q2HR PRN IV PAIN; Start 09/13/18 at 16:15; Stop 09/14/18 at 16:14; Status DC Pantoprazole Sodium (Protonix) 40 mg DAILYAC PO Last administered on 09/14/18at 07:32; Start 09/14/18 at 07:30 Pantoprazole Sodium (Protonix) 40 mg 1X ONCE PO Last administered on 09/13/18at 21:07; Start 09/13/18 at 19:30; Stop 09/13/18 at 19:35; Status DC Cefazolin Sodium/ Dextrose 50 ml @ 100 mls/hr 1X PREOP IV Last administered on 09/15/18at 14:07; Start 09/14/18 at 09:00; Stop 09/15/18 at 18:00; Status DC Heparin Sodium (Porcine) 1000 unit/Sodium Chloride 1,001 ml @ 1,001 mls/hr 1X ONCE IRR ; Start 09/15/18 at 06:00; Stop 09/15/18 at 06:59; Status DC Ondansetron HCl (Zofran) 4 mg PRN Q6HRS PRN IV NAUSEA/VOMITING; Start 09/15/18 at 07:00; Stop 09/15/18 at 19:00; Status DC Fentanyl Citrate (Fentanyl 2ml Vial) 25 mcg PRN Q5MIN PRN IV MILD PAIN 1-3; Start 09/15/18 at 07:00; Stop 09/15/18 at 19:00; Status DC Fentanyl Citrate (Fentanyl 2ml Vial) 50 mcg PRN Q5MIN PRN IV MODERATE TO SEVERE PAIN; Start 09/15/18 at 07:00; Stop 09/15/18 at 19:00; Status DC Morphine Sulfate (Morphine Sulfate) 1 mg PRN Q10MIN PRN IV SEVERE PAIN 7-10; Start 09/15/18 at 07:00; Stop 09/15/18 at 19:00; Status DC Ringer's Solution 1,000 ml @ 30 mls/hr Q24H IV Last administered on 09/15/18at 14:00; Start 09/15/18 at 07:00; Stop 09/15/18 at 18:59; Status DC Lidocaine HCl (Xylocaine-Mpf 1% 2ml Vial) 2 ml PRN 1X PRN ID PRIOR TO IV START; Start 09/15/18 at 07:00; Stop 09/15/18 at 19:00; Status DC Hydromorphone HCl (Dilaudid) 0.5 mg PRN Q10MIN PRN IV SEV PAIN, Second choice; Start 09/15/18 at 07:00; Stop 09/15/18 at 19:00; Status DC Prochlorperazine Edisylate (Compazine) 5 mg PACU PRN PRN IV NAUSEA, MRX1; Start 09/15/18 at 07:00; Stop 09/15/18 at 19:00; Status DC Heparin Sodium (Porcine) 1000 unit/Sodium Chloride 1,001 ml @ 1,001 mls/hr 1X ONCE IRR ; Start 09/15/18 at 13:30; Stop 09/15/18 at 14:29; Status DC Bupivacaine HCl/ Epinephrine Bitart (Sensorcain-Mpf Epi 0.5%-[id number]) 30 ml STK-MED ONCE .ROUTE Last administered on 09/15/18at 14:56; Start 09/15/18 at 12:27; Stop 09/15/18 at 13:27; Status DC Cellulose (Surgicel Hemostat 2x3) 1 each STK-MED ONCE .ROUTE ; Start 09/15/18 at 12:27; Stop 09/15/18 at 13:27; Status DC Iohexol (Omnipaque 300 Mg/ml) 50 ml STK-MED ONCE .ROUTE Last administered on 09/15/18at 14:58; Start 09/15/18 at 12:27; Stop 09/15/18 at 13:27; Status DC Bisacodyl (Dulcolax Supp) 10 mg STK-MED ONCE .ROUTE Last administered on 09/15/18at 15:51; Start 09/15/18 at 12:27; Stop 09/15/18 at 13:28; Status DC Propofol 20 ml @ As Directed STK-MED ONCE IV ; Start 09/15/18 at 13:30; Stop 09/15/18 at 13:31; Status DC Famotidine (Pepcid Vial) 20 mg STK-MED ONCE .ROUTE ; Start 09/15/18 at 13:30; Stop 09/15/18 at 13:31; Status DC Lidocaine HCl (Lidocaine Pf 2% Vial) 5 ml STK-MED ONCE .ROUTE ; Start 09/15/18 at 13:30; Stop 09/15/18 at 13:31; Status DC Ondansetron HCl (Zofran) 4 mg STK-MED ONCE .ROUTE ; Start 09/15/18 at 13:30; Stop 09/15/18 at 13:31; Status DC Dexamethasone Sodium Phosphate (Decadron) 4 mg STK-MED ONCE .ROUTE ; Start 09/15/18 at 13:30; Stop 09/15/18 at 13:31; Status DC Rocuronium Bradford (Zemuron) 50 mg STK-MED ONCE .ROUTE ; Start 09/15/18 at 13:30; Stop 09/15/18 at 13:31; Status DC Fentanyl Citrate (Fentanyl 2ml Vial) 100 mcg STK-MED ONCE .ROUTE ; Start 09/15/18 at 13:31; Stop 09/15/18 at 13:32; Status DC Glycopyrrolate (Robinul) 1 mg STK-MED ONCE .ROUTE ; Start 09/15/18 at 15:46; Stop 09/15/18 at 15:47; Status DC Neostigmine Methylsulfate (Neostigmine Methylsulfate) 5 mg STK-MED ONCE .ROUTE ; Start 09/15/18 at 15:46; Stop 09/15/18 at 15:47; Status DC Sevoflurane (Ultane) 60 ml STK-MED ONCE IH ; Start 09/15/18 at 15:48; Stop 09/15/18 at 15:49; Status DC Enoxaparin Sodium (Lovenox 40mg Syringe) 40 mg Q24H SQ ; Start 09/16/18 at 09:00 Sodium Chloride (Normal Saline Flush) 3 ml QSHIFT PRN IV AFTER MEDS AND BLOOD DRAWS; Start 09/15/18 at 16:00 Ringer's Solution 1,000 ml @ 100 mls/hr Q10H IV Last administered on 09/15/18at 18:07; Start 09/15/18 at 18:00 Dextrose (Dextrose 50%-Water Syringe) 12.5 gm PRN Q15MIN PRN IV SEE COMMENTS; Start 09/15/18 at 16:00 Acetaminophen/ Hydrocodone Bitart (Lortab 5/325) 1 tab PRN Q4HRS PRN PO MILD PAIN 1-3; Start 09/15/18 at 16:00 Morphine Sulfate (Morphine Sulfate) 1 mg PRN Q1HR PRN IV PAIN; Start 09/15/18 at 16:00 Docusate Sodium (Colace) 100 mg BID PO ; Start 09/15/18 at 21:00 Ondansetron HCl (Zofran) 4 mg PRN Q6HRS PRN IV NAUESA, 1ST CHOICE; Start 09/15/18 at 16:00 Albuterol/ Ipratropium (Duoneb) 3 ml STK-MED ONCE .ROUTE ; Start 09/15/18 at 16:45; Stop 09/15/18 at 16:46; Status DC Albuterol/ Ipratropium (Duoneb) 3 ml 1X ONCE NEB Last administered on 08/31 10/19at 16:50; Start 09/15/18 at 17:00; Stop 09/15/18 at 17:01; Status DC Active Scripts Active Zithromax (Azithromycin) 250 Mg Tablet 1 Pkg PO UD Reported Atorvastatin Calcium 10 Mg Tablet 10 Mg PO HS Hydrochlorothiazide Tablet (Hydrochlorothiazide) 25 Mg Tablet 25 Mg PO DAILY Acetaminophen 500 Mg Tablet 500 Mg PO PRN Q6HRS PRN Zoloft (Sertraline Hcl) 50 Mg Tablet 50 Mg PO DAILY Aspir-Low (Aspirin) 81 Mg Tablet.dr 81 Mg PO DAILY Metoprolol Succinate ( Xl ) (Metoprolol Succinate) 25 Mg Tab.er.24h 25 Mg PO DAILY Vitals/I & O Vital Sign - Last 24 Hours 09/14/18 09/15/18 09/15/18 09/15/18 23:01 03:06 07:22 08:00 Temp 99.7 98.4 98.0 99.7 98.4 98.0 Pulse 79 83 78 Resp 20 20 18 B/P (MAP) 135/76 (95) 125/80 (95) 121/68 (85) Pulse Ox 94 91 95 O2 Delivery Room Air Room Air Room Air Room Air 09/15/18 09/15/18 09/15/18 09/15/18 10:56 14:01 16:02 16:03 Temp 98.9 97.4 98.6 98.9 97.4 98.6 Pulse 79 77 109 Resp 19 15 28 B/P (MAP) 147/85 (105) 147/75 198/92 Pulse Ox 95 94 87 O2 Delivery Room Air Room Air Mask Simple Mask O2 Flow Rate 10 10 5/16/19 5/16/19 5/16/19 5/16/19 16:17 16:33 16:48 17:03 Temp 98.6 98.6 98.6 98.6 98.6 98.6 98.6 98.6 Pulse 106 90 84 86 Resp B/P (MAP) 181/96 159/83 163/81 158/84 Pulse Ox 94 90 87 89 O2 Delivery T-Tube Simple Mask Nasal Cannula Nasal Cannula Simple Mask O2 Flow Rate 15 15 6 6 09/15/18 09/15/18 09/15/18 17:18 17:26 17:36 Temp 98.6 98.6 98.6 98.6 98.6 98.6 Pulse 88 94 94 Resp 24 24 B/P (MAP) 140/88 158/100 162/92 Pulse Ox 89 88 90 O2 Delivery Nasal Cannula Nasal Cannula Nasal Cannula O2 Flow Rate 6 6 6 Intake and Output 09/14/18 09/14/18 09/15/18 14:59 22:59 06:59 Intake Total 1540 ml 500 ml Output Total 500 ml Balance 1540 ml 500 ml -500 ml CHAPARRO ANTUNEZ MD September 15, 2018 21:21
[2018-09-16] VITALS (8 sets, daily range): BP systolic 110–167; BP diastolic 69–93
[2018-09-16] MEDS: IV RINGERS,LACTATED 1000ML 1,000 ML IV SCH ×2 (03:42→14:00)
--- NOTE | 2018-09-16 08:17 | PDOC ---
SURGICAL PROGRESS NOTE Subjective resting incisional/drain pain tolerating clears Vital Signs Vital Signs Date Time Temp Pulse Resp B/P (MAP) Pulse Ox O2 Delivery O2 Flow Rate FiO2 09/16/18 07:35 Nasal Cannula 2.0 09/16/18 07:10 100.6 88 20 138/78 (98) 92 100.6 I&O Intake and Output 09/16/18 07:00 Intake Total 2050 ml Output Total 600 ml Balance 1450 ml Intake Oral 0 ml IV Total 2050 ml Output Urine Total 300 ml Drainage Total 250 ml Estimated Blood Loss 50 ml # Voids 7 General: Alert, Oriented X3, Cooperative, No acute distress Abdomen: Soft, Other (drain serosang ) Labs Laboratory Tests Test 09/15/18 03:50 Total Bilirubin 2.3 mg/dL (0.2-1.0) Direct Bilirubin 1.4 mg/dL (0.0-0.2) Aspartate Amino Transf (AST/SGOT) 301 U/L (15-37) Alanine Aminotransferase (ALT/SGPT) 626 U/L (14-59) Alkaline Phosphatase 133 U/L (46-116) Total Protein 6.0 g/dL (6.4-8.2) Albumin 2.7 g/dL (3.4-5.0) Problem List Problems Medical Problems: (1) Abnormal liver enzymes Status: Acute (2) Cholelithiasis Status: Acute (3) Nausea & vomiting Status: Acute Assessment/Plan s/p lap crista continue drain advance diet increase activity SUDHEER PIPER APRN September 16, 2018 08:17
[2018-09-16] MEDS: ENOXAPARIN 40 MG/0.4 ML SYRINGE. SQ SCH (09:00)
--- NOTE | 2018-09-16 09:25 | PDOC ---
Subjective: Subjective: Was on the phone, then asks me to give her the "code to the room." Right side is sore. I asked if she was short of breath - "seems like it." Objective: Vital Signs: Vital Signs Date Time Temp Pulse Resp B/P (MAP) Pulse Ox O2 Delivery O2 Flow Rate FiO2 09/16/18 07:35 Nasal Cannula 2.0 09/16/18 07:10 100.6 88 20 138/78 (98) 92 100.6 Imaging: MRCP IMPRESSION: 1. Mild dilatation of the common hepatic duct without evidence of choledocholithiasis or an obstructing mass. 2. Cholelithiasis with edematous gallbladder wall thickening compatible with acute cholecystitis. IOC IMPRESSION: No evidence of a retained common duct calculus. PE: GEN: NAD - tray of clears mostly consumed LUNGS: tachypneic, clear anteriorly, NC 2L HEART: RRR ABD: quiet, drain serosang NEURO/PSYCH: A & O 3 A/P: S/p cholecystectomy Elevated LFTs -- Recheck of labs ordered, will add CXR. SILKE COWART September 16, 2018 09:25
[2018-09-16] MEDS: PANTOPRAZOLE 40 MG TABLET.DR. PO SCH (09:55)
[2018-09-16] MEDS: DOCUSATE SODIUM 100 MG CAPSULE. PO SCH ×2 (09:55→21:00)
[2018-09-16 10:35] LABS: BASO % 0 % (0-3); EOS % 0 % (0-3); HEMATOCRIT 33.2 % (36.0-47.0); HEMOGLOBIN 10.4 g/dL (12.0-15.5); LYMPH # 2.4 x10^3/uL (1.0-4.8); LYMPH % 26 % (24-48); MEAN CORPUSCULAR HEMOGLOBIN 21 pg (25-35); MEAN CORPUSCULAR HGB CONC 31 g/dL (31-37); MEAN CORPUSCULAR VOLUME 68 fL (79-100); MONO # 0.6 x10^3/uL (0.0-1.1); MONO % 6 % (0-9); NEUT # 6.1 x10^3uL (1.8-7.7); NEUT % 68 % (31-73); PLATELET COUNT 137 x10^3/uL (140-400); RED BLOOD COUNT 4.89 x10^6/uL (3.50-5.40); RED CELL DISTRIBUTION WIDTH 17.3 % (11.5-14.5); WHITE BLOOD COUNT 9.1 x10^3/uL (4.0-11.0)
[2018-09-16] MEDS ORDERED: ACETAMINOPHEN 500 MG TABLET PO PRN (11:00)
[2018-09-16 11:07] LABS: ALBUMIN 2.6 g/dL (3.4-5.0); ALBUMIN/GLOBULIN RATIO 0.7 (1.0-1.7); CALCIUM 8.9 mg/dL (8.5-10.1); CREATININE 0.9 mg/dL (0.6-1.0); GFR 75.6; POTASSIUM 4.1 mmol/L (3.5-5.1); TOTAL BILIRUBIN 0.8 mg/dL (0.2-1.0); TOTAL PROTEIN 6.2 g/dL (6.4-8.2)
--- NOTE | 2018-09-16 11:40 | RAD ---
Two-view chest dated 09/16/2018. Comparison made to 09/13/2018. CLINICAL INDICATION: Shortness of breath. FINDINGS: PA and lateral views of the chest were obtained. Study is limited due to low lung volumes. Heart and mediastinal contours are stable given differences in technique. There is patchy and linear perihilar opacities. Mild blunting of the costophrenic sulci. No pneumothorax. IMPRESSION: 1. Limited exam due to low lung volumes. 2. Patchy perihilar airspace disease, likely related to low lung volumes and atelectasis. Early pneumonia not excluded. Electronically signed by: Jeff Garcia MD (09/16/2018 11:37 AM) [id number]
[2018-09-16] MEDS: METOPROLOL SUCC 24HR ER 25 MG TAB.ER.24H. PO SCH (12:00)
[2018-09-16] MEDS: hydroCHLOROthiazide 25 MG TABLET PO SCH (12:30)
[2018-09-16] MEDS: SERTRALINE 50 MG TABLET. PO SCH (12:30)
--- NOTE | 2018-09-16 15:28 | PDOC ---
PROGRESS NOTES Chief Complaint Chief Complaint Symptomatic cholelithiasis Intractable emesis now resolved Abdominal pain secondary to cholelithiasis most likely Microcytic anemia History of GERD recent EGD done at [facility] as per history, no records available at the present time History of coronary artery disease currently asymptomatic Plan: Hold Lovenox and aspirin Status post cholecystectomy Follow recommendations from assembler surgical garment will reassess in the am pain management Hopefully dismissed soon DVT prophylaxis: scd and lakhwinder History of Present Illness History of Present Illness Patient in no acute distress at the time of my visit denies abdominal pain no nausea or vomiting. Tolerating her diet well. She has passed gases no bowel movements as of yet Vitals Vitals Vital Signs Date Time Temp Pulse Resp B/P (MAP) Pulse Ox O2 Delivery O2 Flow Rate FiO2 09/16/18 12:00 79 144/75 09/16/18 11:10 99.1 20 95 Room Air 99.1 09/16/18 07:35 2.0 Physical Exam General: Alert, Oriented X3, Cooperative, No acute distress Abdomen: Soft, Other (drain serosang ) Labs LABS Laboratory Tests Test 09/16/18 09:41 09/16/18 09:46 Sodium Level 141 mmol/L (136-145) Potassium Level 4.1 mmol/L (3.5-5.1) Chloride Level 104 mmol/L (98-107) Carbon Dioxide Level 26 mmol/L (21-32) Anion Gap 11 (6-14) Blood Urea Nitrogen 12 mg/dL (7-20) Creatinine 0.9 mg/dL (0.6-1.0) Estimated GFR (Cockcroft-Gault) 75.6 BUN/Creatinine Ratio 13 (6-20) Glucose Level 149 mg/dL (70-99) Calcium Level 8.9 mg/dL (8.5-10.1) Total Bilirubin 0.8 mg/dL (0.2-1.0) Aspartate Amino Transf (AST/SGOT) 210 U/L (15-37) Alanine Aminotransferase (ALT/SGPT) 480 U/L (14-59) Alkaline Phosphatase 117 U/L (46-116) Total Protein 6.2 g/dL (6.4-8.2) Albumin 2.6 g/dL (3.4-5.0) Albumin/Globulin Ratio 0.7 (1.0-1.7) White Blood Count 9.1 x10^3/uL (4.0-11.0) Red Blood Count 4.89 x10^6/uL (3.50-5.40) Hemoglobin 10.4 g/dL (12.0-15.5) Hematocrit 33.2 % (36.0-47.0) Mean Corpuscular Volume 68 fL (79-100) Mean Corpuscular Hemoglobin 21 pg (25-35) Mean Corpuscular Hemoglobin Concent 31 g/dL (31-37) Red Cell Distribution Width 17.3 % (11.5-14.5) Platelet Count 137 x10^3/uL (140-400) Neutrophils (%) (Auto) 68 % (31-73) Lymphocytes (%) (Auto) 26 % (24-48) Monocytes (%) (Auto) 6 % (0-9) Eosinophils (%) (Auto) 0 % (0-3) Basophils (%) (Auto) 0 % (0-3) Neutrophils # (Auto) 6.1 x10^3uL (1.8-7.7) Lymphocytes # (Auto) 2.4 x10^3/uL (1.0-4.8) Monocytes # (Auto) 0.6 x10^3/uL (0.0-1.1) Eosinophils # (Auto) 0.0 x10^3/uL (0.0-0.7) Basophils # (Auto) 0.0 x10^3/uL (0.0-0.2) Assessment and Plan Assessmemt and Plan Problems Medical Problems: (1) Abnormal liver enzymes Status: Acute (2) Cholelithiasis Status: Acute (3) Nausea & vomiting Status: Acute Comment Review of Relevant I have reviewed the following items della (where applicable) has been applied. Labs Laboratory Tests Test 09/15/18 03:50 09/16/18 09:41 09/16/18 09:46 Total Bilirubin 2.3 mg/dL (0.2-1.0) 0.8 mg/dL (0.2-1.0) Direct Bilirubin 1.4 mg/dL (0.0-0.2) Aspartate Amino Transf (AST/SGOT) 301 U/L (15-37) 210 U/L (15-37) Alanine Aminotransferase (ALT/SGPT) 626 U/L (14-59) 480 U/L (14-59) Alkaline Phosphatase 133 U/L (46-116) 117 U/L (46-116) Total Protein 6.0 g/dL (6.4-8.2) 6.2 g/dL (6.4-8.2) Albumin 2.7 g/dL (3.4-5.0) 2.6 g/dL (3.4-5.0) Sodium Level 141 mmol/L (136-145) Potassium Level 4.1 mmol/L (3.5-5.1) Chloride Level 104 mmol/L (98-107) Carbon Dioxide Level 26 mmol/L (21-32) Anion Gap 11 (6-14) Blood Urea Nitrogen 12 mg/dL (7-20) Creatinine 0.9 mg/dL (0.6-1.0) Estimated GFR (Cockcroft-Gault) 75.6 BUN/Creatinine Ratio 13 (6-20) Glucose Level 149 mg/dL (70-99) Calcium Level 8.9 mg/dL (8.5-10.1) Albumin/Globulin Ratio 0.7 (1.0-1.7) White Blood Count 9.1 x10^3/uL (4.0-11.0) Red Blood Count 4.89 x10^6/uL (3.50-5.40) Hemoglobin 10.4 g/dL (12.0-15.5) Hematocrit 33.2 % (36.0-47.0) Mean Corpuscular Volume 68 fL (79-100) Mean Corpuscular Hemoglobin 21 pg (25-35) Mean Corpuscular Hemoglobin Concent 31 g/dL (31-37) Red Cell Distribution Width 17.3 % (11.5-14.5) Platelet Count 137 x10^3/uL (140-400) Neutrophils (%) (Auto) 68 % (31-73) Lymphocytes (%) (Auto) 26 % (24-48) Monocytes (%) (Auto) 6 % (0-9) Eosinophils (%) (Auto) 0 % (0-3) Basophils (%) (Auto) 0 % (0-3) Neutrophils # (Auto) 6.1 x10^3uL (1.8-7.7) Lymphocytes # (Auto) 2.4 x10^3/uL (1.0-4.8) Monocytes # (Auto) 0.6 x10^3/uL (0.0-1.1) Eosinophils # (Auto) 0.0 x10^3/uL (0.0-0.7) Basophils # (Auto) 0.0 x10^3/uL (0.0-0.2) Laboratory Tests Test 09/16/18 09:41 09/16/18 09:46 Sodium Level 141 mmol/L (136-145) Potassium Level 4.1 mmol/L (3.5-5.1) Chloride Level 104 mmol/L (98-107) Carbon Dioxide Level 26 mmol/L (21-32) Anion Gap 11 (6-14) Blood Urea Nitrogen 12 mg/dL (7-20) Creatinine 0.9 mg/dL (0.6-1.0) Estimated GFR (Cockcroft-Gault) 75.6 BUN/Creatinine Ratio 13 (6-20) Glucose Level 149 mg/dL (70-99) Calcium Level 8.9 mg/dL (8.5-10.1) Total Bilirubin 0.8 mg/dL (0.2-1.0) Aspartate Amino Transf (AST/SGOT) 210 U/L (15-37) Alanine Aminotransferase (ALT/SGPT) 480 U/L (14-59) Alkaline Phosphatase 117 U/L (46-116) Total Protein 6.2 g/dL (6.4-8.2) Albumin 2.6 g/dL (3.4-5.0) Albumin/Globulin Ratio 0.7 (1.0-1.7) White Blood Count 9.1 x10^3/uL (4.0-11.0) Red Blood Count 4.89 x10^6/uL (3.50-5.40) Hemoglobin 10.4 g/dL (12.0-15.5) Hematocrit 33.2 % (36.0-47.0) Mean Corpuscular Volume 68 fL (79-100) Mean Corpuscular Hemoglobin 21 pg (25-35) Mean Corpuscular Hemoglobin Concent 31 g/dL (31-37) Red Cell Distribution Width 17.3 % (11.5-14.5) Platelet Count 137 x10^3/uL (140-400) Neutrophils (%) (Auto) 68 % (31-73) Lymphocytes (%) (Auto) 26 % (24-48) Monocytes (%) (Auto) 6 % (0-9) Eosinophils (%) (Auto) 0 % (0-3) Basophils (%) (Auto) 0 % (0-3) Neutrophils # (Auto) 6.1 x10^3uL (1.8-7.7) Lymphocytes # (Auto) 2.4 x10^3/uL (1.0-4.8) Monocytes # (Auto) 0.6 x10^3/uL (0.0-1.1) Eosinophils # (Auto) 0.0 x10^3/uL (0.0-0.7) Basophils # (Auto) 0.0 x10^3/uL (0.0-0.2) Medications Current Medications Ondansetron HCl (Zofran) 4 mg 1X ONCE IV Last administered on 09/13/18at 14:24; Start 09/13/18 at 14:00; Stop 09/13/18 at 14:01; Status DC Sodium Chloride 500 ml @ 500 mls/hr 1X ONCE IV Last administered on 09/13/18at 14:23; Start 09/13/18 at 14:00; Stop 09/13/18 at 14:59; Status DC Multi-Ingredient Mouthwash/Gargle (Gi Cocktail) 20 ml 1X ONCE SWSW Last administered on 09/13/18at 14:26; Start 09/13/18 at 14:00; Stop 09/13/18 at 14:01; Status DC Ondansetron HCl (Zofran) 4 mg PRN Q8HRS PRN IV NAUSEA/VOMITING; Start 09/13/18 at 16:15; Stop 09/14/18 at 16:14; Status DC Morphine Sulfate (Morphine Sulfate) 2 mg PRN Q2HR PRN IV PAIN; Start 09/13/18 at 16:15; Stop 09/14/18 at 16:14; Status DC Pantoprazole Sodium (Protonix) 40 mg DAILYAC PO Last administered on 09/16/18at 09:55; Start 09/14/18 at 07:30 Pantoprazole Sodium (Protonix) 40 mg 1X ONCE PO Last administered on 09/13/18at 21:07; Start 09/13/18 at 19:30; Stop 09/13/18 at 19:35; Status DC Cefazolin Sodium/ Dextrose 50 ml @ 100 mls/hr 1X PREOP IV Last administered on 09/15/18at 14:07; Start 09/14/18 at 09:00; Stop 09/15/18 at 18:00; Status DC Heparin Sodium (Porcine) 1000 unit/Sodium Chloride 1,001 ml @ 1,001 mls/hr 1X ONCE IRR ; Start 09/15/18 at 06:00; Stop 09/15/18 at 06:59; Status DC Ondansetron HCl (Zofran) 4 mg PRN Q6HRS PRN IV NAUSEA/VOMITING; Start 09/15/18 at 07:00; Stop 09/15/18 at 19:00; Status DC Fentanyl Citrate (Fentanyl 2ml Vial) 25 mcg PRN Q5MIN PRN IV MILD PAIN 1-3; Start 09/15/18 at 07:00; Stop 09/15/18 at 19:00; Status DC Fentanyl Citrate (Fentanyl 2ml Vial) 50 mcg PRN Q5MIN PRN IV MODERATE TO SEVERE PAIN; Start 09/15/18 at 07:00; Stop 09/15/18 at 19:00; Status DC Morphine Sulfate (Morphine Sulfate) 1 mg PRN Q10MIN PRN IV SEVERE PAIN 7-10; Start 09/15/18 at 07:00; Stop 09/15/18 at 19:00; Status DC Ringer's Solution 1,000 ml @ 30 mls/hr Q24H IV Last administered on 09/15/18at 14:00; Start 09/15/18 at 07:00; Stop 09/15/18 at 18:59; Status DC Lidocaine HCl (Xylocaine-Mpf 1% 2ml Vial) 2 ml PRN 1X PRN ID PRIOR TO IV START; Start 09/15/18 at 07:00; Stop 09/15/18 at 19:00; Status DC Hydromorphone HCl (Dilaudid) 0.5 mg PRN Q10MIN PRN IV SEV PAIN, Second choice; Start 09/15/18 at 07:00; Stop 09/15/18 at 19:00; Status DC Prochlorperazine Edisylate (Compazine) 5 mg PACU PRN PRN IV NAUSEA, MRX1; Start 09/15/18 at 07:00; Stop 09/15/18 at 19:00; Status DC Heparin Sodium (Porcine) 1000 unit/Sodium Chloride 1,001 ml @ 1,001 mls/hr 1X ONCE IRR ; Start 09/15/18 at 13:30; Stop 09/15/18 at 14:29; Status DC Bupivacaine HCl/ Epinephrine Bitart (Sensorcain-Mpf Epi 0.5%-1:[id number]) 30 ml STK-MED ONCE .ROUTE Last administered on 09/15/18at 14:56; Start 09/15/18 at 12:27; Stop 09/15/18 at 13:27; Status DC Cellulose (Surgicel Hemostat 2x3) 1 each STK-MED ONCE .ROUTE ; Start 09/15/18 at 12:27; Stop 09/15/18 at 13:27; Status DC Iohexol (Omnipaque 300 Mg/ml) 50 ml STK-MED ONCE .ROUTE Last administered on 09/15/18at 14:58; Start 09/15/18 at 12:27; Stop 09/15/18 at 13:27; Status DC Bisacodyl (Dulcolax Supp) 10 mg STK-MED ONCE .ROUTE Last administered on 09/15/18at 15:51; Start 09/15/18 at 12:27; Stop 09/15/18 at 13:28; Status DC Propofol 20 ml @ As Directed STK-MED ONCE IV ; Start 09/15/18 at 13:30; Stop 09/15/18 at 13:31; Status DC Famotidine (Pepcid Vial) 20 mg STK-MED ONCE .ROUTE ; Start 09/15/18 at 13:30; Stop 09/15/18 at 13:31; Status DC Lidocaine HCl (Lidocaine Pf 2% Vial) 5 ml STK-MED ONCE .ROUTE ; Start 09/15/18 at 13:30; Stop 09/15/18 at 13:31; Status DC Ondansetron HCl (Zofran) 4 mg STK-MED ONCE .ROUTE ; Start 09/15/18 at 13:30; Stop 09/15/18 at 13:31; Status DC Dexamethasone Sodium Phosphate (Decadron) 4 mg STK-MED ONCE .ROUTE ; Start 09/15/18 at 13:30; Stop 09/15/18 at 13:31; Status DC Rocuronium [place] (Zemuron) 50 mg STK-MED ONCE .ROUTE ; Start 09/15/18 at 13:30; Stop 09/15/18 at 13:31; Status DC Fentanyl Citrate (Fentanyl 2ml Vial) 100 mcg STK-MED ONCE .ROUTE ; Start 09/15/18 at 13:31; Stop 09/15/18 at 13:32; Status DC Glycopyrrolate (Robinul) 1 mg STK-MED ONCE .ROUTE ; Start 09/15/18 at 15:46; Stop 09/15/18 at 15:47; Status DC Neostigmine Methylsulfate (Neostigmine Methylsulfate) 5 mg STK-MED ONCE .ROUTE ; Start 09/15/18 at 15:46; Stop 09/15/18 at 15:47; Status DC Sevoflurane (Ultane) 60 ml STK-MED ONCE IH ; Start 09/15/18 at 15:48; Stop 09/15/18 at 15:49; Status DC Enoxaparin Sodium (Lovenox 40mg Syringe) 40 mg Q24H SQ ; Start 09/16/18 at 09:00 Sodium Chloride (Normal Saline Flush) 3 ml QSHIFT PRN IV AFTER MEDS AND BLOOD DRAWS; Start 09/15/18 at 16:00 Ringer's Solution 1,000 ml @ 100 mls/hr Q10H IV Last administered on 09/16/18at 14:00; Start 09/15/18 at 18:00 Dextrose (Dextrose 50%-Water Syringe) 12.5 gm PRN Q15MIN PRN IV SEE COMMENTS; Start 09/15/18 at 16:00 Acetaminophen/ Hydrocodone Bitart (Lortab 5/325) 1 tab PRN Q4HRS PRN PO MODERATE-SEVERE PAIN; Start 09/15/18 at 16:00 Morphine Sulfate (Morphine Sulfate) 1 mg PRN Q1HR PRN IV PAIN; Start 09/15/18 at 16:00 Docusate Sodium (Colace) 100 mg BID PO Last administered on 09/16/18at 09:55; Start 09/15/18 at 21:00 Ondansetron HCl (Zofran) 4 mg PRN Q6HRS PRN IV NAUESA, 1ST CHOICE; Start 09/15/18 at 16:00 Albuterol/ Ipratropium (Duoneb) 3 ml STK-MED ONCE .ROUTE ; Start 09/15/18 at 16:45; Stop 09/15/18 at 16:46; Status DC Albuterol/ Ipratropium (Duoneb) 3 ml 1X ONCE NEB Last administered on 09/15/18at 16:50; Start 09/15/18 at 17:00; Stop 09/15/18 at 17:01; Status DC Atorvastatin Calcium (Lipitor) 10 mg HS PO ; Start 09/16/18 at 21:00 Hydrochlorothiazide (Hydrodiuril) 25 mg DAILY PO Last administered on 09/16/18at 12:30; Start 09/16/18 at 12:00 Metoprolol Succinate (Toprol Xl) 25 mg DAILY PO Last administered on 09/16/18at 12:00; Start 09/16/18 at 12:00 Sertraline HCl (Zoloft) 50 mg DAILY PO Last administered on 09/16/18at 12:30; Start 09/16/18 at 12:00 Acetaminophen (Tylenol) 500 mg PRN Q6HRS PRN PO MILD PAIN 1-3; Start 09/16/18 at 11:00 Active Scripts Active Zithromax (Azithromycin) 250 Mg Tablet 1 Pkg PO UD Reported Atorvastatin Calcium 10 Mg Tablet 10 Mg PO HS Hydrochlorothiazide Tablet (Hydrochlorothiazide) 25 Mg Tablet 25 Mg PO DAILY Acetaminophen 500 Mg Tablet 500 Mg PO PRN Q6HRS PRN Zoloft (Sertraline Hcl) 50 Mg Tablet 50 Mg PO DAILY Aspir-Low (Aspirin) 81 Mg Tablet.dr 81 Mg PO DAILY Metoprolol Succinate ( Xl ) (Metoprolol Succinate) 25 Mg Tab.er.24h 25 Mg PO DAILY Vitals/I & O Vital Sign - Last 24 Hours 09/15/18 09/15/18 09/15/18 09/15/18 16:02 16:03 16:17 16:33 Temp 98.6 98.6 98.6 98.6 98.6 98.6 Pulse 109 106 90 Resp 28 28 28 B/P (MAP) 198/92 181/96 159/83 Pulse Ox 87 94 90 O2 Delivery Mask Simple Mask T-Tube Simple Mask O2 Flow Rate 10 10 15 15 09/15/18 09/15/18 09/15/18 09/15/18 16:48 17:03 17:18 17:26 Temp 98.6 98.6 98.6 98.6 98.6 98.6 98.6 98.6 Pulse 84 86 88 94 Resp 28 24 B/P (MAP) 163/81 158/84 140/88 158/100 Pulse Ox 87 89 89 88 O2 Delivery Nasal Cannula Nasal Cannula Nasal Cannula Nasal Cannula Simple Mask O2 Flow Rate 6 6 6 6 09/15/18 09/15/18 09/15/18 09/15/18 17:36 19:05 19:35 19:50 Temp 98.6 98.6 Pulse 94 99 97 96 Resp 16 18 B/P (MAP) 162/92 160/91 (114) 168/93 (118) 172/94 (120) Pulse Ox 90 93 96 93 O2 Delivery Nasal Cannula Room Air Room Air Room Air O2 Flow Rate 6 09/15/18 09/15/18 09/15/18 09/15/18 20:00 20:15 20:30 20:50 Temp 98.9 98.9 Pulse 92 94 98 Resp 18 16 B/P (MAP) 158/88 (111) 158/90 (112) 159/99 (119) Pulse Ox 97 96 O2 Delivery Room Air Room Air Room Air Room Air 09/15/18 09/15/18 09/16/18 09/16/18 22:00 23:20 01:00 03:00 Temp 99.0 99.1 99.0 99.1 Pulse 95 104 99 105 Resp 20 18 18 B/P (MAP) 162/88 (112) 151/86 (107) 167/93 (117) 131/71 (91) Pulse Ox 96 89 96 86 O2 Delivery Room Air Room Air Room Air Room Air 09/16/18 09/16/18 09/16/18 09/16/18 03:15 05:07 07:10 07:35 Temp 100.6 100.6 Pulse 89 88 Resp 20 20 B/P (MAP) 154/82 (106) 138/78 (98) Pulse Ox 94 96 92 O2 Delivery Nasal Cannula Room Air Room Air Nasal Cannula O2 Flow Rate 2.0 2.0 09/16/18 09/16/18 11:10 12:00 Temp 99.1 99.1 Pulse 79 79 Resp 20 B/P (MAP) 144/75 (98) 144/75 Pulse Ox 95 O2 Delivery Room Air Intake and Output 09/15/18 09/15/18 09/16/18 15:00 23:00 07:00 Intake Total 50 ml 2000 ml Output Total 225 ml 375 ml Balance 50 ml 1775 ml -375 ml CHAPARRO ANTUNEZ MD September 16, 2018 15:28
[2018-09-16] MEDS: ATORVASTATIN CALCIUM 10 MG TABLET. PO SCH (21:56)
[2018-09-17] MEDS: IV RINGERS,LACTATED 1000ML 1,000 ML IV SCH ×3 (01:18→20:00)
[2018-09-17 03:00] VITALS: BP 131/79
[2018-09-17 07:10] VITALS: BP 117/73
[2018-09-17] MEDS: PANTOPRAZOLE 40 MG TABLET.DR. PO SCH (08:35)
[2018-09-17] MEDS: hydroCHLOROthiazide 25 MG TABLET PO SCH (08:35)
[2018-09-17] MEDS: DOCUSATE SODIUM 100 MG CAPSULE. PO SCH ×2 (08:35→21:00)
[2018-09-17] MEDS: SERTRALINE 50 MG TABLET. PO SCH (08:36)
[2018-09-17] MEDS: METOPROLOL SUCC 24HR ER 25 MG TAB.ER.24H. PO SCH (08:36)
[2018-09-17] MEDS: ENOXAPARIN 40 MG/0.4 ML SYRINGE. SQ SCH (08:37)
--- NOTE | 2018-09-17 10:01 | PDOC ---
Provider Note Provider Note SURG Virgilio for Dr Mayfield PO lap crista hasn't slept well, making her "very grumpy" sitting up at bedside DUGLAS with scant amount of serosanguineous drainage s/p lap crista labs improving continue supportive care ARINA BASURTO MD September 17, 2018 10:01
[2018-09-17 11:00] VITALS: BP 133/78
--- NOTE | 2018-09-17 11:40 | NUR ---
Lactated Ringers - new bag started upon completion of previous bag. Patient stated the fluids "made me go to the bathroom too much and kept me up all night".
--- NOTE | 2018-09-17 13:34 | PDOC ---
G I PROGRESS NOTE Subjective No specific complaints. Seems to be eating OK. Physical Exam Lungs clear. RRR Abdomen soft, not tender nor distended. Review of Relevant I have reviewed the following items della (where applicable) has been applied. Labs Laboratory Tests Test 09/16/18 09:41 09/16/18 09:46 Sodium Level 141 mmol/L (136-145) Potassium Level 4.1 mmol/L (3.5-5.1) Chloride Level 104 mmol/L (98-107) Carbon Dioxide Level 26 mmol/L (21-32) Anion Gap 11 (6-14) Blood Urea Nitrogen 12 mg/dL (7-20) Creatinine 0.9 mg/dL (0.6-1.0) Estimated GFR (Cockcroft-Gault) 75.6 BUN/Creatinine Ratio 13 (6-20) Glucose Level 149 mg/dL (70-99) Calcium Level 8.9 mg/dL (8.5-10.1) Total Bilirubin 0.8 mg/dL (0.2-1.0) Aspartate Amino Transf (AST/SGOT) 210 U/L (15-37) Alanine Aminotransferase (ALT/SGPT) 480 U/L (14-59) Alkaline Phosphatase 117 U/L (46-116) Total Protein 6.2 g/dL (6.4-8.2) Albumin 2.6 g/dL (3.4-5.0) Albumin/Globulin Ratio 0.7 (1.0-1.7) White Blood Count 9.1 x10^3/uL (4.0-11.0) Red Blood Count 4.89 x10^6/uL (3.50-5.40) Hemoglobin 10.4 g/dL (12.0-15.5) Hematocrit 33.2 % (36.0-47.0) Mean Corpuscular Volume 68 fL (79-100) Mean Corpuscular Hemoglobin 21 pg (25-35) Mean Corpuscular Hemoglobin Concent 31 g/dL (31-37) Red Cell Distribution Width 17.3 % (11.5-14.5) Platelet Count 137 x10^3/uL (140-400) Neutrophils (%) (Auto) 68 % (31-73) Lymphocytes (%) (Auto) 26 % (24-48) Monocytes (%) (Auto) 6 % (0-9) Eosinophils (%) (Auto) 0 % (0-3) Basophils (%) (Auto) 0 % (0-3) Neutrophils # (Auto) 6.1 x10^3uL (1.8-7.7) Lymphocytes # (Auto) 2.4 x10^3/uL (1.0-4.8) Monocytes # (Auto) 0.6 x10^3/uL (0.0-1.1) Eosinophils # (Auto) 0.0 x10^3/uL (0.0-0.7) Basophils # (Auto) 0.0 x10^3/uL (0.0-0.2) Vitals/I & O Vital Sign - Last 24 Hours 09/16/18 09/16/18 09/16/18 09/16/18 15:16 19:00 20:00 23:00 Temp 100.2 99.2 99.3 100.2 99.2 99.3 Pulse 73 69 87 Resp 20 18 18 B/P (MAP) 135/77 (96) 110/69 (83) 126/81 (96) Pulse Ox 92 92 96 O2 Delivery Room Air Room Air Nasal Cannula Room Air O2 Flow Rate 2.0 09/17/18 09/17/18 09/17/18 09/17/18 03:00 07:10 08:36 11:00 Temp 99.1 99.5 98.1 99.1 99.5 98.1 Pulse 81 68 68 77 Resp 16 20 20 B/P (MAP) 131/79 (96) 117/73 (88) 117/73 133/78 (96) Pulse Ox 97 92 96 O2 Delivery Room Air Room Air Room Air Intake and Output 09/16/18 09/16/18 09/17/18 15:00 23:00 07:00 Intake Total 1300 ml 200 ml Output Total 75 ml 70 ml Balance 1300 ml 125 ml -70 ml Problem List Problems Medical Problems: (1) Abnormal liver enzymes Status: Acute (2) Cholelithiasis Status: Acute (3) Nausea & vomiting Status: Acute Assessment S/p crista--seems to be progressing well. Plan of Care Note Continue as now. CLAUDE CINTRON MD September 17, 2018 13:34
[2018-09-17 15:50] VITALS: BP 148/83
--- NOTE | 2018-09-17 17:30 | PDOC ---
PROGRESS NOTES Chief Complaint Chief Complaint Symptomatic cholelithiasis Intractable emesis now resolved Abdominal pain secondary to cholelithiasis most likely Microcytic anemia History of GERD recent EGD done at [facility] as per history, no records available at the present time History of coronary artery disease currently asymptomatic Plan: Status post cholecystectomy Follow recommendations from rn neurosurgical will reassess in the am pain management Hopefully will be dismissed soon DVT prophylaxis: scd and lakhwinder History of Present Illness History of Present Illness Patient in no acute distress at the time of my visit denies abdominal pain no nausea or vomiting. Tolerating her diet well. Did not sleep well yesterday which has made her irritable Vitals Vitals Vital Signs Date Time Temp Pulse Resp B/P (MAP) Pulse Ox O2 Delivery O2 Flow Rate FiO2 09/17/18 15:50 98.2 76 20 148/83 (104) 92 Room Air 98.2 09/17/18 08:00 2.0 Physical Exam General: Alert, Oriented X3, Cooperative, No acute distress Abdomen: Soft, Other (drain serosang ) Review of Systems Review of Systems Positive respiratory history of present illness otherwise 14 point review of system is negative Assessment and Plan Assessmemt and Plan Problems Medical Problems: (1) Abnormal liver enzymes Status: Acute (2) Cholelithiasis Status: Acute (3) Nausea & vomiting Status: Acute Comment Review of Relevant I have reviewed the following items della (where applicable) has been applied. Labs Laboratory Tests Test 09/16/18 09:41 09/16/18 09:46 Sodium Level 141 mmol/L (136-145) Potassium Level 4.1 mmol/L (3.5-5.1) Chloride Level 104 mmol/L (98-107) Carbon Dioxide Level 26 mmol/L (21-32) Anion Gap 11 (6-14) Blood Urea Nitrogen 12 mg/dL (7-20) Creatinine 0.9 mg/dL (0.6-1.0) Estimated GFR (Cockcroft-Gault) 75.6 BUN/Creatinine Ratio 13 (6-20) Glucose Level 149 mg/dL (70-99) Calcium Level 8.9 mg/dL (8.5-10.1) Total Bilirubin 0.8 mg/dL (0.2-1.0) Aspartate Amino Transf (AST/SGOT) 210 U/L (15-37) Alanine Aminotransferase (ALT/SGPT) 480 U/L (14-59) Alkaline Phosphatase 117 U/L (46-116) Total Protein 6.2 g/dL (6.4-8.2) Albumin 2.6 g/dL (3.4-5.0) Albumin/Globulin Ratio 0.7 (1.0-1.7) White Blood Count 9.1 x10^3/uL (4.0-11.0) Red Blood Count 4.89 x10^6/uL (3.50-5.40) Hemoglobin 10.4 g/dL (12.0-15.5) Hematocrit 33.2 % (36.0-47.0) Mean Corpuscular Volume 68 fL (79-100) Mean Corpuscular Hemoglobin 21 pg (25-35) Mean Corpuscular Hemoglobin Concent 31 g/dL (31-37) Red Cell Distribution Width 17.3 % (11.5-14.5) Platelet Count 137 x10^3/uL (140-400) Neutrophils (%) (Auto) 68 % (31-73) Lymphocytes (%) (Auto) 26 % (24-48) Monocytes (%) (Auto) 6 % (0-9) Eosinophils (%) (Auto) 0 % (0-3) Basophils (%) (Auto) 0 % (0-3) Neutrophils # (Auto) 6.1 x10^3uL (1.8-7.7) Lymphocytes # (Auto) 2.4 x10^3/uL (1.0-4.8) Monocytes # (Auto) 0.6 x10^3/uL (0.0-1.1) Eosinophils # (Auto) 0.0 x10^3/uL (0.0-0.7) Basophils # (Auto) 0.0 x10^3/uL (0.0-0.2) Medications Current Medications Ondansetron HCl (Zofran) 4 mg 1X ONCE IV Last administered on 09/13/18at 14:24; Start 09/13/18 at 14:00; Stop 09/13/18 at 14:01; Status DC Sodium Chloride 500 ml @ 500 mls/hr 1X ONCE IV Last administered on 09/13/18at 14:23; Start 09/13/18 at 14:00; Stop 09/13/18 at 14:59; Status DC Multi-Ingredient Mouthwash/Gargle (Gi Cocktail) 20 ml 1X ONCE SWSW Last administered on 09/13/18at 14:26; Start 09/13/18 at 14:00; Stop 09/13/18 at 14:01; Status DC Ondansetron HCl (Zofran) 4 mg PRN Q8HRS PRN IV NAUSEA/VOMITING; Start 09/13/18 at 16:15; Stop 09/14/18 at 16:14; Status DC Morphine Sulfate (Morphine Sulfate) 2 mg PRN Q2HR PRN IV PAIN; Start 09/13/18 at 16:15; Stop 09/14/18 at 16:14; Status DC Pantoprazole Sodium (Protonix) 40 mg DAILYAC PO Last administered on 09/17/18at 08:35; Start 09/14/18 at 07:30 Pantoprazole Sodium (Protonix) 40 mg 1X ONCE PO Last administered on 09/13/18at 21:07; Start 09/13/18 at 19:30; Stop 09/13/18 at 19:35; Status DC Cefazolin Sodium/ Dextrose 50 ml @ 100 mls/hr 1X PREOP IV Last administered on 09/15/18at 14:07; Start 09/14/18 at 09:00; Stop 09/15/18 at 18:00; Status DC Heparin Sodium (Porcine) 1000 unit/Sodium Chloride 1,001 ml @ 1,001 mls/hr 1X ONCE IRR ; Start 09/15/18 at 06:00; Stop 09/15/18 at 06:59; Status DC Ondansetron HCl (Zofran) 4 mg PRN Q6HRS PRN IV NAUSEA/VOMITING; Start 09/15/18 at 07:00; Stop 09/15/18 at 19:00; Status DC Fentanyl Citrate (Fentanyl 2ml Vial) 25 mcg PRN Q5MIN PRN IV MILD PAIN 1-3; Start 09/15/18 at 07:00; Stop 09/15/18 at 19:00; Status DC Fentanyl Citrate (Fentanyl 2ml Vial) 50 mcg PRN Q5MIN PRN IV MODERATE TO SEVERE PAIN; Start 09/15/18 at 07:00; Stop 09/15/18 at 19:00; Status DC Morphine Sulfate (Morphine Sulfate) 1 mg PRN Q10MIN PRN IV SEVERE PAIN 7-10; Start 09/15/18 at 07:00; Stop 09/15/18 at 19:00; Status DC Ringer's Solution 1,000 ml @ 30 mls/hr Q24H IV Last administered on 09/15/18at 14:00; Start 09/15/18 at 07:00; Stop 09/15/18 at 18:59; Status DC Lidocaine HCl (Xylocaine-Mpf 1% 2ml Vial) 2 ml PRN 1X PRN ID PRIOR TO IV START; Start 09/15/18 at 07:00; Stop 09/15/18 at 19:00; Status DC Hydromorphone HCl (Dilaudid) 0.5 mg PRN Q10MIN PRN IV SEV PAIN, Second choice; Start 09/15/18 at 07:00; Stop 09/15/18 at 19:00; Status DC Prochlorperazine Edisylate (Compazine) 5 mg PACU PRN PRN IV NAUSEA, MRX1; Start 09/15/18 at 07:00; Stop 09/15/18 at 19:00; Status DC Heparin Sodium (Porcine) 1000 unit/Sodium Chloride 1,001 ml @ 1,001 mls/hr 1X ONCE IRR ; Start 09/15/18 at 13:30; Stop 09/15/18 at 14:29; Status DC Bupivacaine HCl/ Epinephrine Bitart (Sensorcain-Mpf Epi 0.5%-1:214252) 30 ml STK-MED ONCE .ROUTE Last administered on 09/15/18at 14:56; Start 09/15/18 at 12:27; Stop 09/15/18 at 13:27; Status DC Cellulose (Surgicel Hemostat 2x3) 1 each STK-MED ONCE .ROUTE ; Start 09/15/18 at 12:27; Stop 09/15/18 at 13:27; Status DC Iohexol (Omnipaque 300 Mg/ml) 50 ml STK-MED ONCE .ROUTE Last administered on 09/15/18at 14:58; Start 09/15/18 at 12:27; Stop 09/15/18 at 13:27; Status DC Bisacodyl (Dulcolax Supp) 10 mg STK-MED ONCE .ROUTE Last administered on 09/15/18at 15:51; Start 09/15/18 at 12:27; Stop 09/15/18 at 13:28; Status DC Propofol 20 ml @ As Directed STK-MED ONCE IV ; Start 09/15/18 at 13:30; Stop 09/15/18 at 13:31; Status DC Famotidine (Pepcid Vial) 20 mg STK-MED ONCE .ROUTE ; Start 09/15/18 at 13:30; Stop 09/15/18 at 13:31; Status DC Lidocaine HCl (Lidocaine Pf 2% Vial) 5 ml STK-MED ONCE .ROUTE ; Start 09/15/18 at 13:30; Stop 09/15/18 at 13:31; Status DC Ondansetron HCl (Zofran) 4 mg STK-MED ONCE .ROUTE ; Start 09/15/18 at 13:30; Stop 09/15/18 at 13:31; Status DC Dexamethasone Sodium Phosphate (Decadron) 4 mg STK-MED ONCE .ROUTE ; Start 09/15/18 at 13:30; Stop 09/15/18 at 13:31; Status DC Rocuronium [place] (Zemuron) 50 mg STK-MED ONCE .ROUTE ; Start 09/15/18 at 13:30; Stop 09/15/18 at 13:31; Status DC Fentanyl Citrate (Fentanyl 2ml Vial) 100 mcg STK-MED ONCE .ROUTE ; Start 09/15/18 at 13:31; Stop 09/15/18 at 13:32; Status DC Glycopyrrolate (Robinul) 1 mg STK-MED ONCE .ROUTE ; Start 09/15/18 at 15:46; Stop 09/15/18 at 15:47; Status DC Neostigmine Methylsulfate (Neostigmine Methylsulfate) 5 mg STK-MED ONCE .ROUTE ; Start 09/15/18 at 15:46; Stop 09/15/18 at 15:47; Status DC Sevoflurane (Ultane) 60 ml STK-MED ONCE IH ; Start 09/15/18 at 15:48; Stop 09/15/18 at 15:49; Status DC Enoxaparin Sodium (Lovenox 40mg Syringe) 40 mg Q24H SQ ; Start 09/16/18 at 09:00 Sodium Chloride (Normal Saline Flush) 3 ml QSHIFT PRN IV AFTER MEDS AND BLOOD DRAWS; Start 09/15/18 at 16:00 Ringer's Solution 1,000 ml @ 100 mls/hr Q10H IV Last administered on 09/17/18at 11:40; Start 09/15/18 at 18:00 Dextrose (Dextrose 50%-Water Syringe) 12.5 gm PRN Q15MIN PRN IV SEE COMMENTS; Start 09/15/18 at 16:00 Acetaminophen/ Hydrocodone Bitart (Lortab 5/325) 1 tab PRN Q4HRS PRN PO MODERATE-SEVERE PAIN; Start 09/15/18 at 16:00 Morphine Sulfate (Morphine Sulfate) 1 mg PRN Q1HR PRN IV PAIN; Start 09/15/18 at 16:00 Docusate Sodium (Colace) 100 mg BID PO Last administered on 09/16/18at 09:55; Start 09/15/18 at 21:00 Ondansetron HCl (Zofran) 4 mg PRN Q6HRS PRN IV NAUESA, 1ST CHOICE; Start 09/15/18 at 16:00 Albuterol/ Ipratropium (Duoneb) 3 ml STK-MED ONCE .ROUTE ; Start 09/15/18 at 16:45; Stop 09/15/18 at 16:46; Status DC Albuterol/ Ipratropium (Duoneb) 3 ml 1X ONCE NEB Last administered on 09/15/18at 16:50; Start 09/15/18 at 17:00; Stop 09/15/18 at 17:01; Status DC Atorvastatin Calcium (Lipitor) 10 mg HS PO Last administered on 09/16/18at 21:56; Start 09/16/18 at 21:00 Hydrochlorothiazide (Hydrodiuril) 25 mg DAILY PO Last administered on 09/17/18at 08:35; Start 09/16/18 at 12:00 Metoprolol Succinate (Toprol Xl) 25 mg DAILY PO Last administered on 09/17/18at 08:36; Start 09/16/18 at 12:00 Sertraline HCl (Zoloft) 50 mg DAILY PO Last administered on 09/17/18at 08:36; Start 09/16/18 at 12:00 Acetaminophen (Tylenol) 500 mg PRN Q6HRS PRN PO MILD PAIN 1-3; Start 5/17/19 at 11:00 Active Scripts Active Zithromax (Azithromycin) 250 Mg Tablet 1 Pkg PO UD Reported Atorvastatin Calcium 10 Mg Tablet 10 Mg PO HS Hydrochlorothiazide Tablet (Hydrochlorothiazide) 25 Mg Tablet 25 Mg PO DAILY Acetaminophen 500 Mg Tablet 500 Mg PO PRN Q6HRS PRN Zoloft (Sertraline Hcl) 50 Mg Tablet 50 Mg PO DAILY Aspir-Low (Aspirin) 81 Mg Tablet.dr 81 Mg PO DAILY Metoprolol Succinate ( Xl ) (Metoprolol Succinate) 25 Mg Tab.er.24h 25 Mg PO DAILY Vitals/I & O Vital Sign - Last 24 Hours 09/16/18 09/16/18 09/16/18 09/17/18 19:00 20:00 23:00 03:00 Temp 99.2 99.3 99.1 99.2 99.3 99.1 Pulse 69 87 81 Resp 18 18 16 B/P (MAP) 110/69 (83) 126/81 (96) 131/79 (96) Pulse Ox 92 96 97 O2 Delivery Room Air Nasal Cannula Room Air Room Air O2 Flow Rate 2.0 09/17/18 09/17/18 09/17/18 09/17/18 07:10 08:00 08:36 11:00 Temp 99.5 98.1 99.5 98.1 Pulse 68 68 77 Resp 20 20 B/P (MAP) 117/73 (88) 117/73 133/78 (96) Pulse Ox 92 96 O2 Delivery Room Air Nasal Cannula Room Air O2 Flow Rate 2.0 09/17/18 15:50 Temp 98.2 98.2 Pulse 76 Resp 20 B/P (MAP) 148/83 (104) Pulse Ox 92 O2 Delivery Room Air Intake and Output 09/16/18 09/16/18 09/17/18 14:59 22:59 06:59 Intake Total 1300 ml 200 ml Output Total 75 ml 70 ml Balance 1300 ml 125 ml -70 ml CHAPARRO ANTUNEZ MD September 17, 2018 17:30
[2018-09-17 19:40] VITALS: BP 128/73
[2018-09-17] MEDS: ATORVASTATIN CALCIUM 10 MG TABLET. PO SCH (21:00)
[2018-09-17 23:12] VITALS: BP 156/85
[2018-09-18 02:57] VITALS: BP 146/77
[2018-09-18 07:05] VITALS: BP 142/63
[2018-09-18] MEDS: DOCUSATE SODIUM 100 MG CAPSULE. PO SCH ×2 (09:00→21:00)
[2018-09-18] MEDS: IV RINGERS,LACTATED 1000ML 1,000 ML IV SCH ×2 (09:35→22:21)
[2018-09-18] MEDS: ENOXAPARIN 40 MG/0.4 ML SYRINGE. SQ SCH (09:35)
[2018-09-18] MEDS: hydroCHLOROthiazide 25 MG TABLET PO SCH (09:36)
[2018-09-18] MEDS: METOPROLOL SUCC 24HR ER 25 MG TAB.ER.24H. PO SCH (09:36)
[2018-09-18] MEDS: SERTRALINE 50 MG TABLET. PO SCH (09:36)
[2018-09-18] MEDS: PANTOPRAZOLE 40 MG TABLET.DR. PO SCH (09:37)
--- NOTE | 2018-09-18 09:56 | PDOC ---
Provider Note Provider Note SURG Virgilio for Dr Mayfield up to chair got some sleep last noc taking liquids DUGLAS with small amount of serosanguineous output ok for dismissal from a surgical standpoint d/c DUGLAS drain before release f/u with Dr Mayfield in office ARINA BASURTO MD September 18, 2018 09:56
[2018-09-18 11:07] VITALS: BP 135/80
--- NOTE | 2018-09-18 13:23 | PDOC ---
PROGRESS NOTES Chief Complaint Chief Complaint Symptomatic cholelithiasis Intractable emesis now resolved Abdominal pain secondary to cholelithiasis most likely Microcytic anemia History of GERD recent EGD done at as per history, no records available at the present time History of coronary artery disease currently asymptomatic Plan: Status post cholecystectomy Follow recommendations from absence management consultant will reassess in the am pain management Case management for placement DVT prophylaxis: scd and lakhwinder History of Present Illness History of Present Illness Patient in no acute distress at the time of my visit denies abdominal pain no nausea or vomiting. Tolerating her diet well. Patient has 36 steps and total to get to her house and does not think that she will do well at home. We will pursue transitioning to a prison facility with rehabilitation Vitals Vitals Vital Signs Date Time Temp Pulse Resp B/P (MAP) Pulse Ox O2 Delivery O2 Flow Rate FiO2 09/18/18 11:07 98.6 77 20 135/80 (98) 92 Room Air 98.6 09/18/18 08:00 2.0 Physical Exam General: Alert, Oriented X3, Cooperative, No acute distress Abdomen: Soft, Other (drain serosang ) Review of Systems Review of Systems Positives per history of present illness otherwise 14 point review of system is negative Assessment and Plan Assessmemt and Plan Problems Medical Problems: (1) Abnormal liver enzymes Status: Acute (2) Cholelithiasis Status: Acute (3) Nausea & vomiting Status: Acute Comment Review of Relevant I have reviewed the following items della (where applicable) has been applied. Medications Current Medications Ondansetron HCl (Zofran) 4 mg 1X ONCE IV Last administered on 09/13/18at 14:24; Start 09/13/18 at 14:00; Stop 09/13/18 at 14:01; Status DC Sodium Chloride 500 ml @ 500 mls/hr 1X ONCE IV Last administered on 09/13/18at 14:23; Start 09/13/18 at 14:00; Stop 09/13/18 at 14:59; Status DC Multi-Ingredient Mouthwash/Gargle (Gi Cocktail) 20 ml 1X ONCE SWSW Last administered on 09/13/18at 14:26; Start 09/13/18 at 14:00; Stop 09/13/18 at 14:01; Status DC Ondansetron HCl (Zofran) 4 mg PRN Q8HRS PRN IV NAUSEA/VOMITING; Start 09/13/18 at 16:15; Stop 09/14/18 at 16:14; Status DC Morphine Sulfate (Morphine Sulfate) 2 mg PRN Q2HR PRN IV PAIN; Start 09/13/18 at 16:15; Stop 09/14/18 at 16:14; Status DC Pantoprazole Sodium (Protonix) 40 mg DAILYAC PO Last administered on 09/18/18at 09:37; Start 09/14/18 at 07:30 Pantoprazole Sodium (Protonix) 40 mg 1X ONCE PO Last administered on 09/13/18at 21:07; Start 09/13/18 at 19:30; Stop 09/13/18 at 19:35; Status DC Cefazolin Sodium/ Dextrose 50 ml @ 100 mls/hr 1X PREOP IV Last administered on 09/15/18at 14:07; Start 09/14/18 at 09:00; Stop 09/15/18 at 18:00; Status DC Heparin Sodium (Porcine) 1000 unit/Sodium Chloride 1,001 ml @ 1,001 mls/hr 1X ONCE IRR ; Start 09/15/18 at 06:00; Stop 09/15/18 at 06:59; Status DC Ondansetron HCl (Zofran) 4 mg PRN Q6HRS PRN IV NAUSEA/VOMITING; Start 09/15/18 at 07:00; Stop 09/15/18 at 19:00; Status DC Fentanyl Citrate (Fentanyl 2ml Vial) 25 mcg PRN Q5MIN PRN IV MILD PAIN 1-3; Start 09/15/18 at 07:00; Stop 09/15/18 at 19:00; Status DC Fentanyl Citrate (Fentanyl 2ml Vial) 50 mcg PRN Q5MIN PRN IV MODERATE TO SEVERE PAIN; Start 09/15/18 at 07:00; Stop 09/15/18 at 19:00; Status DC Morphine Sulfate (Morphine Sulfate) 1 mg PRN Q10MIN PRN IV SEVERE PAIN 7-10; Start 09/15/18 at 07:00; Stop 09/15/18 at 19:00; Status DC Ringer's Solution 1,000 ml @ 30 mls/hr Q24H IV Last administered on 09/15/18at 14:00; Start 09/15/18 at 07:00; Stop 09/15/18 at 18:59; Status DC Lidocaine HCl (Xylocaine-Mpf 1% 2ml Vial) 2 ml PRN 1X PRN ID PRIOR TO IV START; Start 09/15/18 at 07:00; Stop 09/15/18 at 19:00; Status DC Hydromorphone HCl (Dilaudid) 0.5 mg PRN Q10MIN PRN IV SEV PAIN, Second choice; Start 09/15/18 at 07:00; Stop 09/15/18 at 19:00; Status DC Prochlorperazine Edisylate (Compazine) 5 mg PACU PRN PRN IV NAUSEA, MRX1; Start 09/15/18 at 07:00; Stop 09/15/18 at 19:00; Status DC Heparin Sodium (Porcine) 1000 unit/Sodium Chloride 1,001 ml @ 1,001 mls/hr 1X ONCE IRR ; Start 09/15/18 at 13:30; Stop 09/15/18 at 14:29; Status DC Bupivacaine HCl/ Epinephrine Bitart (Sensorcain-Mpf Epi 0.5%-1:611649) 30 ml STK-MED ONCE .ROUTE Last administered on 09/15/18at 14:56; Start 09/15/18 at 12:27; Stop 09/15/18 at 13:27; Status DC Cellulose (Surgicel Hemostat 2x3) 1 each STK-MED ONCE .ROUTE ; Start 09/15/18 at 12:27; Stop 09/15/18 at 13:27; Status DC Iohexol (Omnipaque 300 Mg/ml) 50 ml STK-MED ONCE .ROUTE Last administered on 09/15/18at 14:58; Start 09/15/18 at 12:27; Stop 09/15/18 at 13:27; Status DC Bisacodyl (Dulcolax Supp) 10 mg STK-MED ONCE .ROUTE Last administered on 09/15/18at 15:51; Start 09/15/18 at 12:27; Stop 09/15/18 at 13:28; Status DC Propofol 20 ml @ As Directed STK-MED ONCE IV ; Start 09/15/18 at 13:30; Stop 09/15/18 at 13:31; Status DC Famotidine (Pepcid Vial) 20 mg STK-MED ONCE .ROUTE ; Start 09/15/18 at 13:30; Stop 09/15/18 at 13:31; Status DC Lidocaine HCl (Lidocaine Pf 2% Vial) 5 ml STK-MED ONCE .ROUTE ; Start 09/15/18 at 13:30; Stop 09/15/18 at 13:31; Status DC Ondansetron HCl (Zofran) 4 mg STK-MED ONCE .ROUTE ; Start 09/15/18 at 13:30; Stop 09/15/18 at 13:31; Status DC Dexamethasone Sodium Phosphate (Decadron) 4 mg STK-MED ONCE .ROUTE ; Start 09/15/18 at 13:30; Stop 09/15/18 at 13:31; Status DC Rocuronium [place] (Zemuron) 50 mg STK-MED ONCE .ROUTE ; Start 09/15/18 at 13:30; Stop 09/15/18 at 13:31; Status DC Fentanyl Citrate (Fentanyl 2ml Vial) 100 mcg STK-MED ONCE .ROUTE ; Start 09/15/18 at 13:31; Stop 09/15/18 at 13:32; Status DC Glycopyrrolate (Robinul) 1 mg STK-MED ONCE .ROUTE ; Start 09/15/18 at 15:46; Stop 09/15/18 at 15:47; Status DC Neostigmine Methylsulfate (Neostigmine Methylsulfate) 5 mg STK-MED ONCE .ROUTE ; Start 09/15/18 at 15:46; Stop 09/15/18 at 15:47; Status DC Sevoflurane (Ultane) 60 ml STK-MED ONCE IH ; Start 09/15/18 at 15:48; Stop 09/15/18 at 15:49; Status DC Enoxaparin Sodium (Lovenox 40mg Syringe) 40 mg Q24H SQ Last administered on 09/18/18at 09:35; Start 09/16/18 at 09:00 Sodium Chloride (Normal Saline Flush) 3 ml QSHIFT PRN IV AFTER MEDS AND BLOOD DRAWS; Start 09/15/18 at 16:00 Ringer's Solution 1,000 ml @ 75 mls/hr [id number] IV Last administered on 09/18/18at 09:35; Start 09/15/18 at 18:00 Dextrose (Dextrose 50%-Water Syringe) 12.5 gm PRN Q15MIN PRN IV SEE COMMENTS; Start 09/15/18 at 16:00 Acetaminophen/ Hydrocodone Bitart (Lortab 5/325) 1 tab PRN Q4HRS PRN PO MODERATE-SEVERE PAIN; Start 09/15/18 at 16:00 Morphine Sulfate (Morphine Sulfate) 1 mg PRN Q1HR PRN IV PAIN; Start 09/15/18 at 16:00 Docusate Sodium (Colace) 100 mg BID PO Last administered on 09/16/18at 09:55; Start 09/15/18 at 21:00 Ondansetron HCl (Zofran) 4 mg PRN Q6HRS PRN IV NAUESA, 1ST CHOICE; Start 09/15/18 at 16:00 Albuterol/ Ipratropium (Duoneb) 3 ml STK-MED ONCE .ROUTE ; Start 09/15/18 at 16:45; Stop 09/15/18 at 16:46; Status DC Albuterol/ Ipratropium (Duoneb) 3 ml 1X ONCE NEB Last administered on 09/15/18at 16:50; Start 09/15/18 at 17:00; Stop 09/15/18 at 17:01; Status DC Atorvastatin Calcium (Lipitor) 10 mg HS PO Last administered on 09/16/18at 21:56; Start 09/16/18 at 21:00 Hydrochlorothiazide (Hydrodiuril) 25 mg DAILY PO Last administered on 09/18/18at 09:36; Start 09/16/18 at 12:00 Metoprolol Succinate (Toprol Xl) 25 mg DAILY PO Last administered on 09/18/18at 09:36; Start 09/16/18 at 12:00 Sertraline HCl (Zoloft) 50 mg DAILY PO Last administered on 09/18/18at 09:36; Start 09/16/18 at 12:00 Acetaminophen (Tylenol) 500 mg PRN Q6HRS PRN PO MILD PAIN 1-3; Start 09/16/18 at 11:00 Active Scripts Active Zithromax (Azithromycin) 250 Mg Tablet 1 Pkg PO UD Reported Atorvastatin Calcium 10 Mg Tablet 10 Mg PO HS Hydrochlorothiazide Tablet (Hydrochlorothiazide) 25 Mg Tablet 25 Mg PO DAILY Acetaminophen 500 Mg Tablet 500 Mg PO PRN Q6HRS PRN Zoloft (Sertraline Hcl) 50 Mg Tablet 50 Mg PO DAILY Aspir-Low (Aspirin) 81 Mg Tablet.dr 81 Mg PO DAILY Metoprolol Succinate ( Xl ) (Metoprolol Succinate) 25 Mg Tab.er.24h 25 Mg PO DAILY Vitals/I & O Vital Sign - Last 24 Hours 09/17/18 09/17/18 09/17/18 09/17/18 15:50 19:40 20:00 23:12 Temp 98.2 98.1 98.3 98.2 98.1 98.3 Pulse 76 72 58 Resp 20 16 16 B/P (MAP) 148/83 (104) 128/73 (91) 156/85 (108) Pulse Ox 92 93 91 O2 Delivery Room Air Room Air Room Air Room Air 09/18/18 09/18/18 09/18/18 09/18/18 02:57 07:05 08:00 09:36 Temp 98.7 97.9 98.7 97.9 Pulse 75 74 74 Resp 20 20 B/P (MAP) 146/77 (100) 142/63 (89) 142/63 Pulse Ox 90 92 O2 Delivery Room Air Room Air Room Air O2 Flow Rate 2.0 09/18/18 11:07 Temp 98.6 98.6 Pulse 77 Resp 20 B/P (MAP) 135/80 (98) Pulse Ox 92 O2 Delivery Room Air Intake and Output 09/17/18 09/17/18 09/18/18 14:59 22:59 06:59 Intake Total 200 ml 300 ml 340 ml Output Total 15 ml Balance 200 ml 285 ml 340 ml CHAPARRO ANTUNEZ MD September 18, 2018 13:23
[2018-09-18 15:00] VITALS: BP 139/91
[2018-09-18 19:50] VITALS: BP 136/92
[2018-09-18] MEDS: ATORVASTATIN CALCIUM 10 MG TABLET. PO SCH (21:00)
[2018-09-18 23:32] VITALS: BP 144/83
[2018-09-19] MEDS: IV RINGERS,LACTATED 1000ML 1,000 ML IV SCH (06:12)
[2018-09-19 06:57] VITALS: BP 140/77
[2018-09-19] MEDS: SERTRALINE 50 MG TABLET. PO SCH (08:05)
[2018-09-19] MEDS: hydroCHLOROthiazide 25 MG TABLET PO SCH (08:05)
[2018-09-19] MEDS: PANTOPRAZOLE 40 MG TABLET.DR. PO SCH (08:05)
[2018-09-19] MEDS: DOCUSATE SODIUM 100 MG CAPSULE. PO SCH ×2 (08:06→20:09)
[2018-09-19] MEDS: METOPROLOL SUCC 24HR ER 25 MG TAB.ER.24H. PO SCH (08:06)
[2018-09-19] MEDS: ENOXAPARIN 40 MG/0.4 ML SYRINGE. SQ SCH (08:07)
[2018-09-19] MEDS ORDERED: HYDROcodone/APAP 5/325MG 1 TAB TABLET PO PRN (08:15)
--- NOTE | 2018-09-19 08:50 | PDOC ---
SURGICAL PROGRESS NOTE Subjective tolerating diet minimal pain dc planning for rehab Vital Signs Vital Signs Date Time Temp Pulse Resp B/P (MAP) Pulse Ox O2 Delivery O2 Flow Rate FiO2 09/19/18 08:06 78 140/77 09/19/18 06:57 97.8 20 92 Room Air 97.8 09/18/18 08:00 2.0 I&O Intake and Output 09/19/18 07:00 Intake Total 470 ml Output Total 65 ml Balance 405 ml Intake Oral 470 ml Drainage Total 65 ml # Voids 10 # Bowel Movements 2 General: Alert, Oriented X3, Cooperative, No acute distress Abdomen: Soft, Other (ND, lap dressings dry, art serosang ) Problem List Problems Medical Problems: (1) Abnormal liver enzymes Status: Acute (2) Cholelithiasis Status: Acute (3) Nausea & vomiting Status: Acute Assessment/Plan s/p crista dc planning, ok to dc drain once read to discharge SUDHEER PIPER APRN September 19, 2018 08:50
[2018-09-19] MEDS ORDERED: HYDR-2761 PO (10:55)
--- NOTE | 2018-09-19 10:56 | SNU/HH DC ---
DISCHARGE ORDERS DISCHARGE INFORMATION: DISCHARGE DATE: September 19, 2018 FINAL DIAGNOSIS Problems Medical Problems: (1) Abnormal liver enzymes Status: Acute (2) Cholelithiasis Status: Acute (3) Nausea & vomiting Status: Acute CODE STATUS: Code Status: Full SENIOR LIVING: SNF STAY <30 DAYS: Yes HOSPICE: HOSPICE: No HOSPICE EVAL & TREAT: No LTAC: ADMIT TO LTAC: No POST DISCHARGE ORDERS: ACTIVITY ORDERS: Activity as tolerated DIET AFTER DISCHARGE: Regular CHECKS AFTER DISCHARGE: CHECKS AFTER DISCHARGE: Check blood press - daily FOLLOW-UP: PHYSICIAN FOLLOW-UP: surgeon 2 weeks time TREATMENT/EQUIPMENT ORDERS: Physical Therapy For: Evalulation/Treatment Occupational Therapy For: Evaluation/Treatment DISCHARGE MEDICATIONS: Home Meds Active Scripts Hydrocodone Bit/Acetaminophen (HYDROCODONE-APAP 5-325 ) 1 Tab Tablet, 1 TAB PO PRN Q4HRS PRN for MODERATE-SEVERE PAIN MDD 1, #30 TAB Prov:PRISCILLA SOUZA MD 09/19/18 Azithromycin (ZITHROMAX) 250 Mg Tablet, 1 PKG PO UD, #1 PKG Prov:RACHEL VAUGHN MD 11/10/15 Reported Medications Atorvastatin Calcium (ATORVASTATIN CALCIUM) 10 Mg Tablet, 10 MG PO HS for FOR CHOLESTEROL, #30 TAB 0 Refills 09/13/18 Hydrochlorothiazide (HYDROCHLOROTHIAZIDE TABLET ) 25 Mg Tablet, 25 MG PO DAILY for DIURETIC, TAB 0 Refills 09/13/18 Acetaminophen (ACETAMINOPHEN) 500 Mg Tablet, 500 MG PO PRN Q6HRS PRN for MILD PAIN, TAB 09/13/18 Sertraline Hcl (ZOLOFT) 50 Mg Tablet, 50 MG PO DAILY for ANTI-DEPRESSANT, TAB 0 Refills 09/13/18 Aspirin (ASPIR-LOW) 81 Mg Tablet.dr, 81 MG PO DAILY for heart health, TAB.SR 09/13/18 Metoprolol Succinate (METOPROLOL SUCCINATE ( XL )) 25 Mg Tab.er.24h, 25 MG PO DAILY for FOR HYPERTENSION, #30 TAB 0 Refills 09/13/18 PRISCILLA SOUZA MD September 19, 2018 10:56
--- NOTE | 2018-09-19 10:58 | PDOC3 ---
Discharge Summary Visit Information Date of Admission: September 13, 2018 Date of Discharge: September 19, 2018 Admitting Diagnosis Comment: symptomatic cholelithiasis status post lap cholecystectomy with indwelling DUGLAS drain-to be removed on discharge Obesity BMI 38 Elevated liver enzymes secondary to above Final Diagnosis Problems Medical Problems: (1) Abnormal liver enzymes Status: Acute (2) Cholelithiasis Status: Acute (3) Nausea & vomiting Status: Acute Brief Hospital Course Allergies Allergies Coded Allergies Type Severity Reaction Last Updated Verified No Known Drug Allergies 11/10/15 No Vital Signs Vital Signs Date Time Temp Pulse Resp B/P (MAP) Pulse Ox O2 Delivery O2 Flow Rate FiO2 09/19/18 08:06 78 140/77 09/19/18 06:57 97.8 20 92 Room Air 97.8 09/18/18 08:00 2.0 Brief Hospital Course Ms. Ozuna is a 67 old legally blind -Maltese female admitted for symptomatically cholelithiasis and underwent laparoscopic cholecystectomy needing indwelling DUGLAS drain postop. Cleared by GS to go to rehabilitation and remove drain before discharging To follow-up GS 2 weeks Course remarkable for some generalized weakness hence needing SNU and we are consulting social work No change in home meds, Lortab Rx on chart Patient seen and examined, DC time less than 30 minutes Proc: lap crista by GS Discharge Information Condition at Discharge: Improved, Stable Follow Up: Weeks (2 weeks sx) Disposition/Orders: Other (snu) Scheduled Aspirin (Aspir-Low) 81 Mg Tablet.dr, 81 MG PO DAILY for heart health, (Reported) Entered as Reported by: SUSAN MCKEON on 09/13/182053 Last Action: Reviewed on 09/16/18 07 by PAYTON ZEE Atorvastatin Calcium (Atorvastatin Calcium) 10 Mg Tablet, 10 MG PO HS for FOR CHOLESTEROL, #30 Ref 0 (Reported) Entered as Reported by: SUSAN MCKEON on 09/13/182053 Last Action: Continued on 09/16/18 110 by PAYTON ZEE Azithromycin (Zithromax) 250 Mg Tablet, 1 PKG PO UD, #1 Prescribed by: RACHEL VAUGHN on 11/10/15 2300 Hydrochlorothiazide (Hydrochlorothiazide Tablet ) 25 Mg Tablet, 25 MG PO DAILY for DIURETIC, Ref 0 (Reported) Entered as Reported by: SUSAN MCKEON on 09/13/182053 Last Action: Continued on 09/16/181107 by PAYTON ZEE Metoprolol Succinate (Metoprolol Succinate ( Xl )) 25 Mg Tab.er.24h, 25 MG PO DAILY for FOR HYPERTENSION, #30 Ref 0 (Reported) Entered as Reported by: SUSAN MCKEON on 09/13/182053 Last Action: Continued on 09/16/181107 by PAYTON ZEE Sertraline Hcl (Zoloft) 50 Mg Tablet, 50 MG PO DAILY for ANTI-DEPRESSANT, Ref 0 (Reported) Entered as Reported by: SUSAN MCKEON on 09/13/182053 Last Action: Continued on 09/16/181107 by PAYTON ZEE Scheduled PRN Acetaminophen (Acetaminophen) 500 Mg Tablet, 500 MG PO PRN Q6HRS PRN for MILD PAIN, (Reported) Entered as Reported by: SUSAN MCKEON on 09/13/182053 Last Action: Converted on 09/16/181107 by PAYTON ZEE Hydrocodone Bit/Acetaminophen (Hydrocodone-Apap 5-325 ) 1 Tab Tablet, 1 TAB PO PRN Q4HRS PRN for MODERATE-SEVERE PAIN MDD 1, #30 Prescribed by: PRISCILLA SOUZA on 09/19/18 1055 PRISCILLA SOUZA MD September 19, 2018 10:58
[2018-09-19 11:00] VITALS: BP 131/78
--- NOTE | 2018-09-19 11:00 | NUR ---
Patient discharge is pending SW securing a long-term facility for patient.
--- NOTE | 2018-09-19 11:37 | PDOC ---
Subjective: Subjective: I asked how she was doing, she said "hurry up!" Objective: Vital Signs: Vital Signs Date Time Temp Pulse Resp B/P (MAP) Pulse Ox O2 Delivery O2 Flow Rate FiO2 09/19/18 08:06 78 140/77 09/19/18 06:57 97.8 20 92 Room Air 97.8 09/18/18 08:00 2.0 PE: GEN: I helped her to commode with RN LUNGS: room air NEURO/PSYCH: A & O 3, upset she had to wait to transfer to commode A/P: S/p cholecystectomy Elevated LFTs - improved (last checked 09/16) -- DC per primary. SILKE COWART September 19, 2018 11:37
--- NOTE | 2018-09-19 11:45 | NUR ---
SW following pt. PT recommends SNU and OT is pending. SW spoke with Pt regarding SNU and options. Pt stated she has been to [facility] last year and requested SW to screen pt at facility. SW extensively discussed SNU, HH, AL and insurance coverage. SW phoned and faxed referral to [facility]. Pt acceptance and admission pending. Will continue to follow.
--- NOTE | 2018-09-19 13:59 | NUR ---
SW following ptJim Izaguirre has accepted at [facility] pending insurance approval. Insurance auth for SNU pending.
[2018-09-19 15:00] VITALS: BP 135/77
[2018-09-19 19:15] VITALS: BP 161/88
[2018-09-19] MEDS: HYDROcodone/APAP 5/325MG 1 TAB TABLET PO PRN (20:03)
[2018-09-19] MEDS: ATORVASTATIN CALCIUM 10 MG TABLET. PO SCH (20:04)
[2018-09-19 23:05] VITALS: BP 139/73
[2018-09-20] MEDS: HYDROcodone/APAP 5/325MG 1 TAB TABLET PO PRN ×4 (00:18→13:11)
[2018-09-20 03:09] VITALS: BP 147/76
[2018-09-20 07:00] VITALS: BP 140/90
[2018-09-20] MEDS: PANTOPRAZOLE 40 MG TABLET.DR. PO SCH (07:30)
[2018-09-20] MEDS: hydroCHLOROthiazide 25 MG TABLET PO SCH (08:38)
[2018-09-20] MEDS: ENOXAPARIN 40 MG/0.4 ML SYRINGE. SQ SCH (08:38)
[2018-09-20] MEDS: METOPROLOL SUCC 24HR ER 25 MG TAB.ER.24H. PO SCH (08:39)
[2018-09-20] MEDS: SERTRALINE 50 MG TABLET. PO SCH (08:39)
[2018-09-20] MEDS: DOCUSATE SODIUM 100 MG CAPSULE. PO SCH (08:52)
--- NOTE | 2018-09-20 10:06 | PATHOLOGY ---
[facility] Accession Number: [id number] . 01 Material submitted: . PART A: liver - LIVER BIOPSY PART B: gallbladder - GALLBLADDER . 01 Clinical history: . None provided . 02 Diagnosis: A. Liver, wedge biopsy: - Benign liver parenchyma (final diagnosis pending consultation with pathologists at the [facility]). . B. Gallbladder, cholecystectomy: - Acute and chronic cholecystitis with focal mucosal erosion. - Cholelithiasis. . (Please see comment) . (SKM:jeffery; 09/19/2018) QMS/09/19/2018 . 02 Comment: An addendum report will be issued when the report from the [facility] has been received. (SKM:jeffery; 09/19/2018) . 02 Electronically signed: . Christian Ramires MD, Pathologist NPI- [id number] . 01 Gross description: . A. The specimen is received in formalin, labeled "Susan Zacarias, liver biopsy". Received is a segment of orange-rebollar liver tissue measuring 1.8 x 1.0 x 0.6 cm in greatest dimensions. The specimen is longitudinally bisected and entirely submitted in cassette A1. . B. The specimen is received in formalin, labeled "Susan Zaacrias, gallbladder". Received is an intact gallbladder measuring 13.6 x 4.4 x 3.7 cm in greatest dimensions displaying a dusky rosales-rebollar serosal surface. Opening the specimen reveals a velvety, light rebollar to light brown mucosa with a gallbladder wall thickness of 0.2 cm. Calculi are present displaying a light rebollar and multifaceted appearance, and no masses or lesions are noted grossly. Certified Optician sections, to include the proximal margin, are submitted in cassette B1. (CAA; 09/16/2018) . After initial microscopic examination additional primary care sales representative sections are submitted in B2-B3. (SDY; 09/19/2018) QAC/QAC . 02 Pathologist provided ICD-10: R74.8, K80.12 . 02 CPT . 231793, 856636 Specimen Comment: A courtesy copy of this report has been sent to Specimen Comment: [phone], , . Specimen Comment: Report sent to ,DR VILLAGOMEZ / DR CHAMBERLAIN Performed at: 01 [facility] [address] [facility] [address], [place] [id number] MD Jesus Sen MD Phone: [phone] Performed at: 02 [facility] [address] [place], [place] [id number] MD Lester Polk MD Phone: [phone]
--- NOTE | 2018-09-20 10:18 | PDOC ---
Subjective: Subjective: Says abdomen is "doing some better." Asks who I am and if she's met me before (twice). Says she urinated in bed. Objective: Objective: Reviewed w/ RN - ?DC today Refused PPI today. Vital Signs: Vital Signs Date Time Temp Pulse Resp B/P (MAP) Pulse Ox O2 Delivery O2 Flow Rate FiO2 09/20/18 08:40 18 Room Air 09/20/18 08:39 98 140/90 09/20/18 08:00 2.0 09/20/18 07:00 98.5 94 98.5 PE: GEN: NAD - breakfast tray 80% consumed, blankets and gown moist NEURO/PSYCH: forgetful A/P: S/p cholecystectomy -- D/w RN. AMERICA per primary - looks like plans for SNU. SILKE COWART September 20, 2018 10:18
--- NOTE | 2018-09-20 10:34 | PDOC ---
Provider Note Provider Note Pt did not DC yesterday because insurance authorization for [facility] is still pending Otherwise medically ready to DC and med list and paperwork has been done - all attached on chart I have seen Patient today and examined her, updated her of the progress PRISCILLA SOUZA MD September 20, 2018 10:34
[2018-09-20 11:00] VITALS: BP 127/73
--- NOTE | 2018-09-20 11:29 | PDOC ---
SURGICAL PROGRESS NOTE Subjective tolerating diet up cleaning up in bathroom Vital Signs Vital Signs Date Time Temp Pulse Resp B/P (MAP) Pulse Ox O2 Delivery O2 Flow Rate FiO2 09/20/18 08:40 18 Room Air 09/20/18 08:39 98 140/90 09/20/18 08:00 2.0 09/20/18 07:00 98.5 94 98.5 I&O Intake and Output 09/20/18 07:00 Intake Total 970 ml Output Total 75 ml Balance 895 ml Intake Oral 970 ml Drainage Total 75 ml # Voids 5 General: Alert, Oriented X3, Cooperative, No acute distress Abdomen: Soft, Other (drain serosang ) Problem List Problems Medical Problems: (1) Abnormal liver enzymes Status: Acute (2) Cholelithiasis Status: Acute (3) Nausea & vomiting Status: Acute Assessment/Plan s/p crista dc drain FU 2 weeks SUDHEER PIPER APRN September 20, 2018 11:29
--- NOTE | 2018-09-20 12:00 | NUR ---
DUGLAS Drain removed in upper right abdomen. No bleeding noted. Gauze dressing applied.
--- NOTE | 2018-09-20 12:59 | NUR ---
D[facility]TON following pt. Insurance has approved SNU. D[facility]TON phoned and faxed orders to [facility]. Pt's choice and rights forms verbally consented by pt and copies on chart. Per pt's request, DALTON phoned Pt's son, Mario Alberto and left a voice mail regarding dc plan. Pt aware of insurance coverage for SNU. Packet on chart. CORBIN MORALES.
--- NOTE | 2018-09-20 14:07 | NUR ---
Report called to Britney at [facility]. Pt discharged to SNU. Transportation provided by [facility].
== END 2018-09-20 14:20 | DRG 417 ==
LOC: ER 12:21 → 6 SOUTH 15:51
PROVIDERS: ADMIT Internal Medicine; ATTEND Internal Medicine
PROC: 0FB04ZX Excision of Liver, Percutaneous Endoscopic Approach, Diagnostic (ICD-10-PCS; 2018-09-15)
PROC: BF101ZZ Fluoroscopy of Bile Ducts using Low Osmolar Contrast (ICD-10-PCS; 2018-09-15)
PROC: 0FT44ZZ Resection of Gallbladder, Percutaneous Endoscopic Approach (ICD-10-PCS; principal; 2018-09-15 12:00)
DX: K80.10 Calculus of gallbladder with chronic cholecystitis without obstruction (principal); R65.11 Systemic inflammatory response syndrome (SIRS) of non-infectious origin with acute organ dysfunction; E66.9 Obesity, unspecified; I10 Essential (primary) hypertension; K21.9 Gastro-esophageal reflux disease without esophagitis; I25.10 Atherosclerotic heart disease of native coronary artery without angina pectoris; D50.9 Iron deficiency anemia, unspecified; H54.8 Legal blindness, as defined in USA; F32.9 Major depressive disorder, single episode, unspecified; F41.9 Anxiety disorder, unspecified; K76.0 Fatty (change of) liver, not elsewhere classified; Z79.82 Long term (current) use of aspirin; Z68.38 Body mass index [BMI] 38.0-38.9, adult; Z90.710 Acquired absence of both cervix and uterus; Z95.5 Presence of coronary angioplasty implant and graft
CPT/HCPCS: 36415; 71046; 74021; 74181; 74300; 76700; 80053; 80076; 81001; 83540; 83550; 83690; 83880; 84484; 85025; 86705; 86709; 86803; 87340; 88304; 88307; 93005; 94640; 96374; A7015; J0696; J1100; J1650; J2001; J2405; J2704; J2710; J3010; J3490; J7030; J7040; J7120; J7620; Q9967; 97110; 97116; 97530; 97535; 99285-25

== ENCOUNTER → 2019-03-27 | Outpatient (CLI) | payer MEDICARE, OTHER ==
[~2019-03-27] MED LIST changes: +ACET500T68 PO; +ASPI81TA50 PO; +ATOR10TA60 PO; +HYDR-2145 PO; +HYDR-2761 PO; +METO-239 PO; +SERT50TA PO
--- NOTE | 2019-03-28 21:13 | RAD ---
3d digital tomography Bilateral History: Routine screening Technique: Bilateral 3d digital tomographic views were obtained and reviewed on a workstation. In addition, CAD - computer aided detection was utilized. Comparison: Most recently on 03/22/2018. Findings: Breast Tissue Density B : The breast tissue is composed of mixed fatty and fibroglandular tissue. There are no suspicious masses, microcalcifications or areas of architectural distortion. Impression: No suspicious findings. BI-RADS Category 1: Negative. Normal interval followup. The patient will receive a letter with the results in the mail. A mammogram does not have 100% sensitivity and therefore a negative imaging study should not delay further work up of a suspicious abnormality. PQRS compliance statement - Patient information was entered into a reminder system with a target due date for the next mammogram. "Our facility is accredited by the [employer] Mammography Program."
== END | disposition home or self-care (01) ==
LOC: MAMMO 10:36
PROVIDERS: ATTEND Family Medicine
DX: Z12.31 Encounter for screening mammogram for malignant neoplasm of breast (principal)
CPT/HCPCS: 77063; 77067

== ENCOUNTER → 2020-04-03 | Outpatient (CLI) | payer OTHER ==
--- NOTE | 2020-04-03 15:17 | RAD ---
DATE: 04/03/2020 9:06 AM EXAM: MAMMO ISABELLE SCREENING BILATERAL HISTORY: Screening COMPARISON: 03/27/2019, 09/18/2013 Bilateral CC and MLO views of the breasts were performed. Bilateral breast tomosynthesis was performed in CC and MLO projections. This study was interpreted with the benefit of Computerized Aided Detection (CAD). FINDINGS: Breast Density: FATTY The Breast Parenchyma is primarily fatty replaced. Breast parenchyma level density A. No suspicious masses, microcalcifications or architectural distortion is present to suggest malignancy in either breast. The visualized axillae are unremarkable. IMPRESSION: No mammographic evidence of malignancy. BI-RADS CATEGORY: 1 NEGATIVE RECOMMENDED FOLLOW-UP: 12M 12 MONTH FOLLOW-UP Annual screening mammography is recommended, unless clinically indicated sooner based on symptoms or change in physical exam. PQRS compliance statement: Patient information was entered into a reminder system with a target due date for the next mammogram. Mammography is a sensitive method for finding small breast cancers, but it does not detect them all and is not a substitute for careful clinical examination. A negative mammogram does not negate a clinically suspicious finding and should not result in delay in biopsying a clinically suspicious abnormality. "Our facility is accredited by the [employer] Mammography Program."
== END ==
LOC: MAMMO 09:00
PROVIDERS: ATTEND Family Medicine
DX: Z12.31 Encounter for screening mammogram for malignant neoplasm of breast (principal)
CPT/HCPCS: 77063; 77067

== ENCOUNTER 2020-10-14 16:49 | Emergency (ER) | payer MEDICARE, OTHER ==
[~2020-10-14] VITALS: Ht 157.5 cm; Wt 90.0 kg
--- NOTE | 2020-10-14 17:25 | PHYS DOC ---
Past Medical History Past Medical History: Glaucoma, Heart Disease, Hypertension Additional Past Medical Histor: cataract, legally blind since (VIOLETTE MARSHALL [employer]) Past Surgical History: Hysterectomy, Other Additional Past Surgical Histo: cataract surgery (VIOLETTE MARSHALL [employer]) Smoking Status: Never Smoker Alcohol Use: None Drug Use: None (VIOLETTE MARSHALL [employer]) General Adult EDM: Chief Complaint: HEAT EXPOSURE HPI: HPI: Patient is a 69 year old female with a history of hypertension, heart disease, blindness since , who presents to the ED today evaluated for generalized weakness. Patient states she was at home today, she states she took a 2-hour hot bath, she was unable to get out of the bathtub, she states this is a chronic issue because she does not have any handrails around her bathtub she has to sit in the tub for hours waiting for her home health nurse to come. She states the home health nurse came back 2 hours later, she states she was removed from the bathtub but felt weak. She states her house does not have any air conditioning but she has air conditioning unit in her room. (VIOLETTE MARSHALL [employer] WORKER) Review of Systems: Review of Systems: Constitutional: Reports generalized weakness. Denies fever or chills. [] Eyes: Denies change in visual acuity. [] HENT: Denies nasal congestion or sore throat. [] Respiratory: Denies cough or shortness of breath. [] Cardiovascular: Denies chest pain or edema. [] GI: Denies abdominal pain, nausea, vomiting, bloody stools or diarrhea. [] : Denies dysuria. [] Musculoskeletal: Denies back pain or joint pain. [] Integument: Denies rash. [] Neurologic: Denies headache, focal weakness or sensory changes. [] Psychiatric: Denies depression or anxiety. [] (VIOLETTE MARSHALL [employer] WORK[employer]) Heart Score: C/O Chest Pain: N/A Risk Factors: Risk Factors: DM, Current or recent (<one month) smoker, HTN, HLP, family history of CAD, obesity. Risk Scores: Score 0 - 3: 2.5% MACE over next 6 weeks - Discharge Home Score 4 - 6: 20.3% MACE over next 6 weeks - Admit for Clinical Observation Score 7 - 10: 72.7% MACE over next 6 weeks - Early Invasive Strategies (VIOLETTE MARSHALL [employer]) Allergies: Allergies: Allergies Coded Allergies Type Severity Reaction Last Updated Verified No Known Drug Allergies 11/10/15 No (VIOLETTE MARSHALL [employer]) Physical Exam: PE: Constitutional: Well developed, well nourished, no acute distress, non-toxic a ppearance. [] HENT: Normocephalic, atraumatic, bilateral external ears normal, oropharynx moist, no oral exudates, nose normal. [] Eyes: Blind bilaterally, conjunctiva with no erythema, no discharge. [] Neck: Normal range of motion, no tenderness, supple, no stridor. [] Cardiovascular:Heart rate regular rhythm, no murmur [] Lungs & Thorax: Bilateral breath sounds clear to auscultation [] Abdomen: Bowel sounds normal, soft, no tenderness, no masses, no pulsatile masses. [] Skin: Warm, dry, no erythema, no rash. [] Back: No tenderness, no CVA tenderness. [] Extremities: No tenderness, no cyanosis, no clubbing, ROM intact, +3 chronic bilateral lower extremity edema Neurologic: Alert and oriented X 3, normal motor function, normal sensory function, no focal deficits noted. [] Psychologic: Affect normal, judgement normal, mood normal. [] (VIOLETTE MARSHALL [employer]) Current Patient Data: Vital Signs: Vital Signs Date Time Temp Pulse Resp B/P (MAP) Pulse Ox O2 Delivery O2 Flow Rate FiO2 10/14/20 17:10 98.0 60 16 140/80 (100) 95 98.0 (VIOLETTE MARSHALL [employer]) EKG: EK interpreted by Dr. Mcrae sinus rhythm heart rate 66 no STEMI (VIOLETTE MARSHALL [employer]) Radiology/Procedures: Radiology/Procedures: []PROCEDURE: CT HEAD WO CONTRAST CT scan of the head without contrast 10/14/2020 Clinical History: Weakness Technique: Unenhanced, contiguous, 5 mm axial sections were obtained through the head. One or more of the following individualized dose reduction techniques were utilized for this study: 1. Automated exposure control. 2. Adjustment of the mA and/or kV according to patient size. 3. Use of iterative reconstruction technique. Findings: Comparison study is dated 08/03/2012. There is generalized parenchymal atrophy. Areas of decreased attenuation are seen within the periventricular and subcortical white matter of both cerebral hemispheres consistent with areas of small vessel ischemic disease. No acute parenchymal abnormality is seen. No extra-axial fluid collection is noted. No skull fracture is seen. Impression: No acute intracranial abnormality is seen. Electronically signed by: Vick Galeas MD (10/14/2020 5:41 PM) [id number] DICTATED and SIGNED BY: VICK GALEAS MD DATE: 10/14/20 [id number] PROCEDURE: PORTABLE CHEST 1V Exam: Chest one view INDICATION: Weakness TECHNIQUE: Frontal view of the chest Comparisons: 09/16/2018 FINDINGS: The cardiomediastinal silhouette and pulmonary vessels are within normal limits. The lung and pleural spaces are clear. IMPRESSION: No acute cardiopulmonary process. Electronically signed by: Tana Todd MD (10/14/2020 6:03 PM) [facility] [place] DICTATED and SIGNED BY: TANA TODD MD DATE: 10/14/20 [id number] 0 (VIOLETTE MARSHALL APRN) Course & Med Decision Making: Course & Med Decision Making Pertinent Labs and Imaging studies reviewed. (See chart for details) This is a 69-year-old female patient presenting to the ED today to be evaluated for what appears to be heat exhaustion. Patient was in her bathtub for 2 hours with no air conditioning. She was removed from the bathtub and was noted to be weak. She states she feels better in the ED. CT of the head is negative, chest x-ray is negative CBC with a WBC of 12.1, positive for UTI, CMP with no acute findings. Given Rocephin, was given a liter of fluid by EMS. Patient has a caregiver at home. Spoke with the son. Discharge to home. Follow-up with PCP (VIOLETTE MARSHALL APRN) Course & Med Decision Making Chart reviewed. Plan of care and treatment plan provided independently by MLP. I was available for consult. (AARON VELAZQUEZ DO) Yonatan Disclaimer: Yonatan Disclaimer: This electronic medical record was generated, in whole or in part, using a voice recognition dictation system. (VIOLETTE MARSHALL APRN) Departure Departure Impression: Primary Impression: Heat exhaustion Qualified Codes: T67.5XXA - Heat exhaustion, unspecified, initial encounter Additional Impressions: UTI (urinary tract infection) Qualified Codes: N39.0 - Urinary tract infection, site not specified Weakness Disposition: HOME / SELF CARE / HOMELESS Condition: STABLE Referrals: JESSICA CHAMBERLAIN (PCP) Follow-up next week Patient Instructions: Heat Illness-SportsMed, Urinary Tract Infection Additional Instructions: You were evaluated in the emergency room for weakness. We did a big work-up in the emergency room including a CT of your head, chest x-ray which were negative for any acute findings. You have urinary tract infection. We put you on ant ibiotics, ensure you complete them. Please follow-up with your primary care doctor in the course of next week Scripts Cephalexin (CEPHALEXIN) 500 Mg Tablet 1 TAB PO BID, #14 TAB Prov: VIOLETTE MARSHALL APRN 10/14/20 VIOLETTE MARSHALL APRN Oct 14, 2020 17:25 AARON VELAZQUEZ DO Oct 14, 2020 20:34
[2020-10-14 17:26] LABS: BILIRUBIN,URINE NEGATIVE (NEG); CLARITY,URINE CLEAR; COLOR,URINE YELLOW; NITRITE,URINE NEGATIVE (NEG); PH,URINE 5.5 (<5.0-8.0); PROTEIN,URINE NEGATIVE (NEG-TRACE); UROBILINOGEN,URINE 0.2 mg/dL (0.2 mg/dL)
[2020-10-14 17:43] LABS: HYALINE CASTS, URINE FEW /HPF
--- NOTE | 2020-10-14 17:43 | RAD ---
CT scan of the head without contrast 10/14/2020 Clinical History: Weakness Technique: Unenhanced, contiguous, 5 mm axial sections were obtained through the head. One or more of the following individualized dose reduction techniques were utilized for this study: 1. Automated exposure control. 2. Adjustment of the mA and/or kV according to patient size. 3. Use of iterative reconstruction technique. Findings: Comparison study is dated 08/03/2012. There is generalized parenchymal atrophy. Areas of decreased attenuation are seen within the perivent ricular and subcortical white matter of both cerebral hemispheres consistent with areas of small vess el ischemic disease. No acute parenchymal abnormality is seen. No extra-axial fluid collection is not ed. No skull fracture is seen. Impression: No acute intracranial abnormality is seen. Electronically signed by: Vick Galeas MD (10/14/2020 5:41 PM) [id number]
[2020-10-14 17:44] LABS: BACTERIA,URINE 0 /HPF (0-FEW); RBC,URINE 0 /HPF (0-2)
[2020-10-14 17:54] LABS: BASO # 0.1 x10^3/uL (0.0-0.2); BASO % 1 % (0-3); EOS # 0.2 x10^3/uL (0.0-0.7); EOS % 1 % (0-3); HEMATOCRIT 34.6 % (36.0-47.0); LYMPH # 8.3 x10^3/uL (1.0-4.8); LYMPH % 69 % (24-48); MEAN CORPUSCULAR HEMOGLOBIN 22 pg (25-35); MEAN CORPUSCULAR HGB CONC 32 g/dL (31-37); MEAN CORPUSCULAR VOLUME 68 fL (79-100); MONO # 0.8 x10^3/uL (0.0-1.1); MONO % 7 % (0-9); NEUT # 2.7 x10^3/uL (1.8-7.7); NEUT % 22 % (31-73); PLATELET COUNT 161 x10^3/uL (140-400); RED BLOOD COUNT 5.12 x10^6/uL (3.50-5.40); RED CELL DISTRIBUTION WIDTH 17.7 % (11.5-14.5); WHITE BLOOD COUNT 12.1 x10^3/uL (4.0-11.0)
--- NOTE | 2020-10-14 18:05 | RAD ---
Exam: Chest one view INDICATION: Weakness TECHNIQUE: Frontal view of the chest Comparisons: 09/16/2018 FINDINGS: The cardiomediastinal silhouette and pulmonary vessels are within normal limits. The lung and pleural spaces are clear. IMPRESSION: No acute cardiopulmonary process. Electronically signed by: Tana Espinal MD (10/14/2020 6:03 PM) [facility]ASSAM
[2020-10-14 18:14] LABS: GFR 66.5; POTASSIUM 3.8 mmol/L (3.5-5.1)
[2020-10-14 18:20] LABS: ALBUMIN 3.6 g/dL (3.4-5.0); MAGNESIUM 1.7 mg/dL (1.8-2.4); TOTAL BILIRUBIN 0.4 mg/dL (0.2-1.0); TOTAL PROTEIN 7.1 g/dL (6.4-8.2)
[2020-10-14] MEDS ORDERED: cefTRIAXone IV Push 1 GM VIAL. IVP ONE (18:30)
--- NOTE | 2020-10-14 18:45 | EKG ---
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
[2020-10-14] MEDS ORDERED: CEPH500T PO (19:32)
[2020-10-14 19:38] VITALS: BP 130/78
[2020-10-14 20:01] LABS: % ATYL 2 % (0-0); % BANDS 1 % (0-9); % EOS 2 % (0-5); % LYMPHS 64 % (24-48); % MONOS 5 % (0-10); % SEGS 26 % (35-66)
[2020-10-14 20:02] LABS: ANISOCYTOSIS SLIGHT; HYPOCHROMIA MOD; MICROCYTOSIS MOD; PLT ESTIMATE ADEQUATE (ADEQUATE); POIKILOCYTOSIS SLIGHT
[2020-10-14 20:04] LABS: OVALOCYTES PRESENT
== END 2020-10-14 20:00 | disposition home or self-care (01) ==
LOC: ER 16:49
DX: T67.5XXA Heat exhaustion, unspecified, initial encounter (principal); N39.0 Urinary tract infection, site not specified; I11.9 Hypertensive heart disease without heart failure; R53.1 Weakness; X58.XXXA Exposure to other specified factors, initial encounter; Y93.89 Activity, other specified; Y92.89 Other specified places as the place of occurrence of the external cause; Y99.8 Other external cause status
CPT/HCPCS: 36415; 70450; 71045; 80053; 81001; 82553; 83735; 83880; 84443; 84484; 85007; 85025; 87086; 93005; 96374; 99285; J0696

== ENCOUNTER → 2021-04-10 | Outpatient (CLI) | payer MEDICARE, OTHER ==
[~2021-04-10] MED LIST changes: +CEPH500T PO
--- NOTE | 2021-04-10 13:15 | RAD ---
BILATERAL DIGITAL SCREENING 2-D AND 3-D MAMMOGRAM INDICATION: Routine screening. COMPARISON: Comparison screening mammograms dating back to 2013. Interpretation was made using CAD. FINDINGS: Breast Density: There are scattered areas of fibroglandular density. RIGHT BREAST: No suspicious masses, calcifications or areas of architectural distortion are seen. LEFT BREAST: No suspicious masses, calcifications or areas of architectural distortion are seen. P rominent left axillary lymph nodes are seen in the axilla, however, these are likely stable since 201 but are incompletely images at that time. Prior mammograms do not include axillary tissue well. IMPRESSION: 1. No imaging evidence of malignancy. ASSESSMENT: BI-RADS 2. Benign Findings RECOMMENDATION: Routine annual screening mammogram. The facility will notify the patient of the results via mail. Patient information will be entered int o the mammography reminder system with a target recall date for the next mammogram. A reminder letter will be generated by the facility. Electronically signed by: Cris Peters MD (04/10/2021 1:13 PM) [id number]
== END ==
LOC: MAMMO 09:37
PROVIDERS: ATTEND Family Medicine
DX: Z12.31 Encounter for screening mammogram for malignant neoplasm of breast (principal)
CPT/HCPCS: 77063; 77067